=== PATIENT | male | born 1955 | race Caucasian/White ===

== ENCOUNTER 2024-02-08 13:19 | Outpatient (CLI) | payer MEDICARE, SELFPAY ==
--- NOTE | 2024-02-08 13:24 | XRR_ITS ---
PROCEDURE INFORMATION: Exam: XR Cervical Spine Exam date and time: 02/08/2024 1:48 PM Age: 68 years old Clinical indication: Radicular pain (radiculopathy); Cervical region; Additional info: M54.12 - radiculopathy, cervical region TECHNIQUE: Imaging protocol: Radiologic exam of the cervical spine. Views: 2 or 3 views. COMPARISON: No relevant prior studies available. FINDINGS: Bones/joints: No fracture or other acute abnormality. 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 Alignment is normal. Mild anterolateral hypertrophic changes are seen at C4 and C5. Visualized disc spaces are unremarkable. The C7 disc space is obscured by the patient's shoulders on the lateral projection. The bones appear to be somewhat demineralized. Soft tissues: Unremarkable. XR/XR cervical spine 3V* [id number] IMPRESSION: Nonacute findings.
--- NOTE | 2024-02-08 13:24 | XRR_ITS ---
PROCEDURE INFORMATION: Exam: XR Right Knee Exam date and time: 02/08/2024 1:48 PM Age: 68 years old Clinical indication: Pain; Knee; Bilateral; Additional info: M25.561 - pain in right knee TECHNIQUE: Imaging protocol: Radiologic exam of the right knee. Views: 3 views. COMPARISON: No relevant prior studies available. FINDINGS: Bones/joints: No fracture or other acute abnormality. Joint spaces are normal. There is a small anterior superior patellar enthesophyte. Soft tissues: Normal. XR/XR knee RT 3V* [id number] IMPRESSION: No acute findings.
--- NOTE | 2024-02-08 13:24 | XRR_ITS ---
PROCEDURE INFORMATION: Exam: XR Left Knee Exam date and time: 02/08/2024 1:48 PM Age: 68 years old Clinical indication: Pain; Knee; Bilateral; Additional info: M25.562 - pain in left knee TECHNIQUE: Imaging protocol: Radiologic exam of the left knee. Views: 3 views. COMPARISON: No relevant prior studies available. FINDINGS: Bones/joints: Normal. Soft tissues: Multiple clips are seen in the soft tissues of the distal posterior medial thigh and proximal posterior medial calf. XR/XR knee LT 3V* [id number] IMPRESSION: No acute findings.
== END 2024-02-08 13:20 | disposition home or self-care (01) ==
LOC: RAD 13:21
PROVIDERS: PCP Family Medicine; Visit Provider Family Medicine
DX: M54.12 Radiculopathy, cervical region (principal); M25.561 Pain in right knee; M25.562 Pain in left knee
CPT/HCPCS: 72040; 73562

== ENCOUNTER 2024-02-28 08:15 | Outpatient (CLI) | payer MEDICARE, SELFPAY ==
--- NOTE | 2024-02-28 08:15 | US_ITS ---
WS: [id number] RIGHT UPPER QUADRANT ULTRASOUND HISTORY: K80.20 - Calculus of gallbladder without cholecystitis wi... COMPARISON: None available. Liver: 17.8 cm in length. Mildly enlarged liver. Poorly seen due to body habitus. Suspect diffuse hep atic steatosis. Portal Vein: Normal hepatopetal flow with monophasic waveform. Gallbladder: Poorly visualized. No wall thickening or adjacent fluid. CBD: 0.5 cm Pancreas: Not visualized. Right kidney: 10.1 cm in length. Normal size kidney. Poorly visualized. No obstruction. Aorta and IVC: Poorly visualized. No ascites. US/US abdomen complete* [id number] IMPRESSION: 1. Technically very difficult RIGHT upper quadrant evaluation. 2. No cholelithiasis or wall thickening identified. 3. Mild hepatic steatosis and hepatomegaly.
== END 2024-02-28 08:24 | disposition home or self-care (01) ==
PROVIDERS: PCP Family Medicine; Visit Provider Family Medicine
DX: K80.20 Calculus of gallbladder without cholecystitis without obstruction (principal); R10.11 Right upper quadrant pain
CPT/HCPCS: 76700

== ENCOUNTER → 2024-03-06 08:29 | Outpatient (BNVA) | payer MEDICARE, SELFPAY | PROVIDERS: PCP Family Medicine; Referring Provider Family Medicine; Visit Provider Student in an Organized Health Care Education/Training Program | DX: K82.9 Disease of gallbladder, unspecified (principal) | CPT/HCPCS: 99204 ==

== ENCOUNTER 2024-03-13 09:42 | Day surgery (SDC) | payer MEDICARE, SELFPAY ==
[2024-03-13 10:05] VITALS: BP 113/71; PULSE 71; RESP 18; TEMP 36.6; O2SAT 95; BMI 32.2
[2024-03-13] MEDS: sodium chloride 0.9% 1,000 ML 30 ML IV (10:29)
--- NOTE | 2024-03-13 10:39 | ANES.PREANE2 ---
Pre-Anesthetic Assessment Height/Weight: Height 1.7 m Weight 93.44 kg Temp Pulse Resp BP Pulse Ox O2 Del Method 97.8 F 71 18 113/71 95 Room Air 03/13/24 10:05 03/13/24 10:05 03/13/24 10:05 03/13/24 10:05 03/13/24 10:05 03/13/24 10:05 Preop Diagnosis: gallbladder issues Operation Date: 03/13/24 11:15 Proposed Procedures p EGD 03127,K82.9(Not Applicable) - Andrew Fuller MD Familial anesthetic complications: none Was Beta Solomon taken within 24 hours: Yes Was Clonidine taken within 24 hours: N/A Last intake: Intake Last Liquid Date 03/12/24 Last Liquid Time 22:30 Last Solid Date 03/12/24 Last Solid Time 19:30 Social Alcohol and No tobacco Exam alert, oriented x 3, clear to auscultation bilaterally and regular rate & rhythm Airway Submandibular: within normal limits Cervical ROM: within normal limits Mallampati: Class II Dentition: false and full Pulmonary Chronic Obstructive Pulmonary Disease, Exertional Dyspnea and Sleep Apnea CV/HEM Arrythmia, Coronary Artery Disease, Hypertension and Myocardial Infarction CABG 2 vessel 2009 stents x 2017 None reported Hepatic None reported GI Gastroesophageal Reflux Disease Metabolic Hyperlipidemia Musc/skel Lower Back Pain and Osteoarthritis/DJD Neuropsych Headache Anesthetic Plan ASA status: 3 Anesthesia: MAC Risk of > 500 ml blood loss (7ml/kg in children): No Medications/Allergies Home Medications Medication Instructions Recorded Confirmed Last Taken Type alirocumab 75 mg/mL subcutaneous 75 mg SUBCUT .MONTHLY 06/28/23 03/08/24 02/16/24 History pen injector (Praluent Pen) aspirin 81 mg tablet,delayed 81 mg PO DAILY 06/28/23 03/08/24 03/12/24 History release (Adult Low Dose Aspirin) atorvastatin 80 mg tablet 80 mg PO DAILY 06/28/23 03/08/24 03/12/24 History cholecalciferol (vitamin D3) 50 50 mcg PO DAILY 06/28/23 03/08/24 03/12/24 History mcg (2,000 unit) capsule loratadine 10 mg tablet (Allergy 10 mg PO DAILY 06/28/23 03/08/24 03/12/24 History Relief (loratadine)) metoprolol tartrate 100 mg tablet 100 mg PO BID 06/28/23 03/08/24 03/13/24 07:00 History montelukast 10 mg tablet 10 mg PO DAILY 06/28/23 03/08/24 03/12/24 History multivitamin 1 tab PO DAILY 06/28/23 03/08/24 03/12/24 History nitroglycerin 0.6 mg sublingual 0.6 mg sublingual Q5M PRN Pain 06/28/23 03/13/24 2 Years Ago History tablet ~03/13/22 olopatadine 0.2 % eye drops 1 drp ophthalmic (eye) DAILY 06/28/23 03/13/24 2 Months Ago History ~01/12/24 omega 2-sdp-owq-fish oil 300 1 cap PO BID 06/28/23 03/08/24 03/12/24 History mg-1,000 mg capsule (Fish Oil) omeprazole 20 mg capsule,delayed 20 mg PO DAILY 06/28/23 03/08/24 03/12/24 History release ranolazine 1,000 mg 1,000 mg PO BID 06/28/23 03/08/24 03/12/24 History tablet,extended release,12 hr tamsulosin 0.4 mg capsule 0.4 mg PO DAILY 06/28/23 03/08/24 03/12/24 History tramadol 50 mg tablet 50 mg PO BID PRN Pain 06/28/23 03/08/24 03/10/24 History clopidogrel 75 mg tablet 75 mg PO DAILY 30 days #30 tabs 11/01/23 03/08/24 03/07/24 Rx Allergies Allergy/AdvReac Type Severity Reaction Status Date / Time No Known Allergies Allergy Unverified 03/08/24 12:56 Current Medications Generic Name Dose Route Start Last Admin Trade Name Freq PRN Reason Stop Dose Admin Sodium Chloride 1,000 mls @ 30 mls/hr 03/13/24 10:00 03/13/24 10:29 Sodium Chloride 0.9% IV 03/14/24 09:59 30 mls/hr .Q24H YOGESH Administration PFSH Anesthesia Surgical History (Updated 03/06/24 @ 08:47 by SUBHASH Garcia) Hx of CABG Family History (Updated 03/06/24 @ 08:48 by SUBHASH Garcia) Mother Diabetes Thyroid disease Colon cancer Grandmother Diabetes Grandfather Stroke maternal Father Heart disease CHF Colon cancer Denies family history of Chronic kidney disease (CKD) Bleeding disorder Social History (Updated 03/06/24 @ 08:48 by SUBHASH Garcia) Smoking and tobacco/nicotine status: former use of tobacco/nicotine Alcohol intake: current Alcohol intake frequency: holidays/special occasions only Data Anesthesia Cardiac Studies: No Data to Display
--- NOTE | 2024-03-13 12:45 | W.PM.OPSUD ---
Surgery/Procedure H&P Update DATE OF PROCEDURE: March 13, 2024 DATE H&P PERFORMED: 03/06/24 H&P UPDATE INFORMATION: I have reviewed H&P completed within last 30 days, I have examined patient prior to procedure and No changes to prior documentation PREOP DIAGNOSIS: gallbladder issues PLANNED PROCEDURE: Operation Date: 03/13/24 11:15 Proposed Procedures p EGD 39729,K82.9(Not Applicable) - Andrew Fuller MD
[2024-03-13 12:57] VITALS: BP 114/77; PULSE 78; RESP 12; TEMP 36.1; O2SAT 97
[2024-03-13 13:07] VITALS: BP 119/80; PULSE 81; RESP 14; O2SAT 94
[2024-03-13 13:14] VITALS: BP 122/69; PULSE 64; RESP 16; O2SAT 95
--- NOTE | 2024-03-13 13:35 | ANE.PACU2 ---
Inpatient post-anesthesia follow up: Airway intact: Yes Vital signs: Temperature 97 F Pulse Rate 64 Respiratory Rate 16 Blood Pressure 122/69 Pulse Oximetry 95 Oxygen Delivery Me thod Room Air Oxygen Flow Rate Fraction of Inspir ed Oxygen Hydration adequate: Yes Nausea and vomiting: No Pain level: 1 Mental status: Baseline
== END 2024-03-13 13:35 | disposition home or self-care (01) ==
PROVIDERS: PCP Family Medicine; Visit Provider Student in an Organized Health Care Education/Training Program
PROC: 0DJ08ZZ Inspection of Upper Intestinal Tract, Via Natural or Artificial Opening Endoscopic (ICD-10-PCS; CPT 43235; principal; 2024-03-13 11:15)
DX: R10.13 Epigastric pain (principal); K29.70 Gastritis, unspecified, without bleeding; K31.7 Polyp of stomach and duodenum; J44.9 Chronic obstructive pulmonary disease, unspecified; G47.30 Sleep apnea, unspecified; I25.10 Atherosclerotic heart disease of native coronary artery without angina pectoris; I10 Essential (primary) hypertension; I25.2 Old myocardial infarction; Z95.1 Presence of aortocoronary bypass graft; Z95.5 Presence of coronary angioplasty implant and graft; Z79.82 Long term (current) use of aspirin
CPT/HCPCS: 43239; 88305; J2704; J7030

== ENCOUNTER → 2024-03-27 09:55 | Outpatient (BNVA) | payer MEDICARE, SELFPAY | PROVIDERS: PCP Family Medicine; Referring Provider Family Medicine; Visit Provider Physician Assistant | DX: M25.561 Pain in right knee (principal); M25.562 Pain in left knee; Z09 Encounter for follow-up examination after completed treatment for conditions other than malignant neoplasm; M17.0 Bilateral primary osteoarthritis of knee; Z46.89 Encounter for fitting and adjustment of other specified devices | CPT/HCPCS: 20610; 73560; 73565; 99203; 99213; J3301 ==

== ENCOUNTER 2024-03-27 11:31 | Outpatient (CLI) | payer MEDICARE, SELFPAY | END 2024-03-27 11:32 | disposition home or self-care (01) | LOC: SPT 11:38 | PROVIDERS: PCP Family Medicine; Visit Provider Physician Assistant | DX: Z46.89 Encounter for fitting and adjustment of other specified devices (principal); M17.0 Bilateral primary osteoarthritis of knee | CPT/HCPCS: L1851 ==

== ENCOUNTER → 2024-04-05 08:16 | Outpatient (BNVA) | payer MEDICARE, SELFPAY | PROVIDERS: PCP Family Medicine; Referring Provider Family Medicine; Visit Provider Specialist | DX: G56.03 Carpal tunnel syndrome, bilateral upper limbs; G56.21 Lesion of ulnar nerve, right upper limb | CPT/HCPCS: 95910 ==

== ENCOUNTER → 2024-07-17 12:36 | Outpatient (BNVA) | payer MEDICARE, SELFPAY | PROVIDERS: PCP Family Medicine; Visit Provider Student in an Organized Health Care Education/Training Program | DX: M17.0 Bilateral primary osteoarthritis of knee (principal); M23.306 Other meniscus derangements, unspecified meniscus, right knee; M23.307 Other meniscus derangements, unspecified meniscus, left knee | CPT/HCPCS: 99213 ==

== ENCOUNTER 2024-11-13 18:56 | Emergency (ER) | payer OTHER, MEDICARE, SELFPAY ==
--- OUTSIDE RECORDS SUMMARY | 2023-11-05 04:00 | XMS_ITS ---
Author Organization [facility] Address [address] [place] [place] [address] Care Team Providers Care Machine Former Name Role Phone Terrance Gusman MD Primary Care Provider Unavailabl miguelina Gusman, Jose Unavailable [phone] [place], [place] Unavailable Unavailable Migration, Provider Unavailable Unavailable REASON FOR VISIT EMR-Elroy Encounters Encounter Location Date Provider Diagnosis Migrated_Facility 0 0 11/05/2023 Provider Migration Plan Of Treatment Next Appt Details Provider Name:Jose Ochoa Gusman, 0 01/08/2025 01:30:00 PM, [address] [place], [address], Progress Notes * Rey CHANDLER RDOB: [birth year] (68 yo M)Acc No.[id number]:11/05/2023 Patient: Ronak JUAN LUISRIYARey :1955 A ge:67 Y S ex:Male Address:[address] [place] [address] 1990 , [place] [address] Subjective: * Chief Complaints: * E MR-Elroy * Medical History: * Surgical History: * Hospitalization/Major Diagno stic Procedure: * Medications: Objective: * Vitals: * Physical Examination: Assessment: Plan: * Treatment: * Procedure Codes: * * Date:
--- OUTSIDE RECORDS SUMMARY | 2023-11-06 04:00 | XMS_ITS ---
Author Organization [facility] Address [address] [place] [address] Care Team Providers Care General Agent Name Role Phone Terrance Gusman MD Primary Care Provider Jeff Gusman, [place] Unavailable [phone] [place], [place] Unavailable Unavailable Migration, Provider Unavailable Unavailable REASON FOR VISIT EMR-[facility]roy Medications Medication SIG (Take, Route, Frequency, Duration) Notes Start Date End Date Status Clopidogrel Bisulfate 75 MG Oral 08/12/2021 Active Omeprazole Magnesium 20 MG Oral 08/12/2021 Active Metoprolol Tartrate 25 MG Oral 08/12/2021 Active Tamsulosin HCl 0.4 MG Oral 08/19/2021 022 Active Sulfamethoxazole-Trim ethoprim 800-160 MG Oral 08/19/2021 08/20/2021 Active Clonidine Hydrochloride 0.1 MG Oral Tablet *[facility]* 08/12/2021 09/05/2021 Active montelukast 10 MG Oral Tablet ORAL *[facility]* 08/12/2021 Active 12 HR ranolazine 500 MG Extended Release Oral Tablet ORAL *Reorder from [facility] for eRx and Interaction Alerts* 08/12/2021 Active atorvastatin 80 MG Oral Tablet ORAL *Reorder from [facility] for eRx and Interaction Alerts* 08/12/2021 Active Aspirin 81 81 MG Oral 08/12/2021 Ac tive traMADol HCl 50 MG Oral 08/12/2021 08/24/2021 Active Encounters Encounter Location Date Provider Diagnosis Migrated_Facility 0 0 11/06/2023 Provider Migration Plan Of Treatment Next Appt Details Provider Name:Jose Gusman, 0 01/08/2025 01:30:00 PM, [address] [place] [address], [place], [address], Progress Notes * Rey CROWDER RDOB: [birth year] (68 yo M)Acc No.[id number]:11/06/2023 Patient: Rey PEARSON :1955 A ge:67 Y S ex:Male Address:[address] [place] [id number] Subjective: * Chief Complaints: * E MR-Elroy * Medical History: * Surgical History: * Hospitalization/Major Diagno stic Procedure: * Family History: M other: PRN - Mother: :: Diabetes,,known absent , :: Hypertension,,known absent . S iblings: SIB - Brother: :: Cancer,,known absent . * Social History: M igrated Social History: M igrated Social History: History of tobacco use : , Smoking Status : Former tobacco user , Smoking Status : Never used tobacco , Alcohol intake :. * Medications: T akingClopidogrel Bisulfate 75 MG Tablet Oral Metoprolol Tartrate 25 MG Tablet Oral Omeprazole Magnesium 20 MG Tablet Delayed Release Oral Sulfamethoxazole- Trimethoprim 800-160 MG Tablet Oral , stop date 08/20/2021Tamsulosin HCl 0.4 MG Capsule Oral , stop date 12/17/2021traMADol HCl 50 MG Tablet Oral , stop date 08/24/2021spirin 81 81 MG Tablet Chewable Oral atorvastatin 80 MG Oral Tablet ORAL , Notes to Pharmacist: *[facility]*montelukast 10 MG Oral Tablet ORAL , Notes to Pharmacist: *[facility]*Clonidine Hydrochloride 0.1 MG Oral Tablet , stop date 09/05/2021, Notes to Pharmacist: *[facility]*12 HR ranolazine 500 MG Extended Release Oral Tablet ORAL , Notes to Pharmacist: *Reorder from [facility] for eRx and Interaction Alerts*Taking Clopidogrel Bisulfate 75 MG Tablet Oral Taking Metoprolol Tartrate 25 MG Tablet Oral Taking Omeprazole Magnesium 20 MG Tablet Delayed Release Oral Taking Sulfamethoxazole-Trimethoprim 800-160 MG Tablet Oral , stop date 08/20/2021Taking Tamsulosin HCl 0.4 MG Capsule Oral , stop date 12/17/2021Taking traMADol HCl 50 MG Tablet Oral , stop date 08/24/2021Taking Aspirin 81 81 MG Tablet Chewable Oral Taking atorvastatin 80 MG Oral Tablet ORAL , Notes to Pharmacist: *Reorder from [facility] for eRx and Interaction Alerts*Taking montelukast 10 MG Oral Tablet ORAL , Notes to Pharmacist: *Reorder from [facility] for eRx and Interaction Alerts*Taking Clonidine Hydrochloride 0.1 MG Oral Tablet , stop date 09/05/2021, Notes to Pharmacist: *Reorder from [facility] for eRx and Interaction Alerts*Taking 12 HR ranolazine 500 MG Extended Release Oral Tablet ORAL , Notes to Pharmacist: *Reorder from [facility] for eRx and Interaction Alerts* Objective: * Vitals: * Physical Examination: Assessment: Plan: * Treatment: * Procedure Codes: * * Date:
--- OUTSIDE RECORDS SUMMARY | 2023-11-30 08:40 | XMS_ITS | Encounter Summary ---
Author Name [facility] [place] [facility] [place] [facility] [place] Address [address] [place] [address] Care Team Providers Care Structural Architect Name Role Phone RAJAN PRUETT Primary Care Provider UnavailAARON Watt Primary Care Provider Unavailab MAXIME Rivas Primary Care Provider Unavaila MELONY Sewell Primary Care Provider Unavailabl ANN Cee Primary Care Provider Unavailsusanne BEEBE, ESTRELLA Unavailable Unavailable JACINTA SPRAGUE Unavailable Unavailable ROD BERNABE Unavailable Unavailable DAVIS LIN Unavailable Unavailable SUNITA BUCKNER Unavailable Unavailable LESLI PAZ Unavailable Unavailable Insurance Providers: All historical and current Section Date Range: From patient's date of to the date document was created. This section includes the names of all active insurance providers for the patient. Insurance Provider Type of Coverage Plan Name Start of Policy Coverage End of Policy Coverage Group Number Member ID Insurance Provider's Telephone Number Policy Summers's Name Patient's Relationship to Policy Summers [facility] (WNR) MEDICARE ADVANTAGE [facility] (WNR) May 16, 2023 [id number] [phone] ERICKA CHANDLER [facility]) MEDICARE ADVANTAGE [facility] (WNR) May 16, 2022 [id number] ERICKA CHANDLER PATIENT CARE IMPROVE PLUS [facility] (WNR) MEDICARE ADVANTAGE [facility] (WNR) May 16, 2015 [id number] [facility]) MEDICARE ADVANTAGE [facility] (WNR) Jun 16, 2019 [id number] ERICKA CHANDLER [facility] (WNR) MEDICARE [facility] (WNR) Jun 16, 2019 [id number] ERICKA CHANDLER PATIENT MEDICARE PART D (WNR) MEDICARE (M) PART D September 13, 2018 PART D [id number] ERICKA CHANDLER PATIENT MEDICARE PART D (WNR) MEDICARE (M) PART D September 13, 2018 PART D [id number] ERICKA CHANDLER PATIENT MEDICARE PART D (WNR) MEDICARE (M) PART D May 16, 2015 PART D [id number] ERICKA CHANDLER MEDICARE PART D (WNR) MEDICARE (M) PART D May 16, 2015 PART D [id number] ERICKA CHANDLER MEDICARE PART D (WNR) MEDICARE (M) PART D May 16, 2015 PART D [id number] ERICKA CHANDLER [facility] (WNR) MEDICARE ADVANTAGE [facility] (WNR) Feb 13, 2021 [id number] ERICKA CHANDLER [facility] (WNR) MEDICARE [facility] (WNR) Feb 13, 2021 [id number] [phone] ERICKA CHANDLER PATIENT Selected Encounter This section includes the information on record at CT for the Encounter. Date/Time Encounter Type Encounter Description Reason Provider Source Nov 30, 2023 01:40 PM CHIROPRACT MANJ 3-4 [employer] ICD-10-CM M99.01 Segmental and somatic dysfunction of cervical region ZO[place] GORE Encounter Template Text not used by CT Assessments - Encounter Diagnoses This section includes the primary and secondary diagnoses documented for the Encounter. Date/Time Primary/Secondary Diagnosis Diagnosis Name Provider Source Nov 30, 2023 01:59 PM PRIMARY Segmental and somatic dysfunction of cervical region ZOË GORE [facility] Nov 30, 2023 01:59 PM SECONDARY Cervicalgia [place] [facility] Nov 30, 2023 01:59 PM SECONDARY Other intervertebral disc degeneration, lumbosacral region [place] [facility] Nov 30, 2023 01:59 PM SECONDARY Pain in thoracic spine [place] [facility] Nov 30, 2023 01:59 PM SECONDARY Segmental and somatic dysfunction of lumbar region [place] [facility] Nov 30, 2023 01:59 PM SECONDARY Segmental and somatic dysfunction of pelvic region [place] [facility] Nov 30, 2023 01:59 PM SECONDARY Segmental and somatic dysfunction of thoracic region [place] [facility] Plan of Treatment: Future Appointments (+ 6 months) and Future Tests (+/- 45 days) The Plan of Treatment section includes future care activities for the [facility] This section includes future appointments and future orders which are active, pending or scheduled. Future Appointments This section includes appointments that were scheduled to occur 6 months from the date of the Encounter, up to a maximum of 20 appointments. The data comes from all CT treatment facilities. Appointment Date/Time Appointment Type Appointme nt Facility Name Dec 14, 2023 08:00 AM AMBULATORY - MEDICINE [facility] Dec 14, 2023 08:40 AM AMBULATORY - MEDICINE [facility] Dec 16, 2023 12:00 PM AMBULATORY - MEDICINE [facility] Dec 26, 2023 11:30 AM AMBULATORY - MEDICINE [facility] 2023 02:40 PM AMBULATORY - MEDICINE [facility] Dec 28, 2023 10:30 AM [place]IC[place] [facility] Jan 03, 2024 09:00 AM AM[place]UL[facility]ORY - [place]ICINE [place] [facility] Jan 26, 2024 11:20 AM AMBULATORY - MEDICINE [facility] Jan 27, 2024 10:00 AM AMBULATORY - NONE [place] [facility] Mar 28, 2024 10:30 AM AM[facility]ULATORY - MEDICINE [place] [facility] Apr 18, 2024 08:15 AM [facility]ORY - MEDICINE [place] [facility] Apr 25, 2024 09:00 AM AMBULATORY - MEDICINE [facility] May 02, 2024 12:00 PM [facility] [facility] May 02, 2024 12:45 PM [facility] May 02, 2024 12:46 PM [facility] - MED[facility]INE [facility] Lab Results: +/- 30 days of the encounter This section includes the Chemistry and Hematology Lab Results on record with CT for the patient. Radiology Reports and Pathology Reports are provided separately, in subsequent sections. Lab Results This section contains the Chemistry/Hematology Results that were resulted 30 days before or 30 daysafter the date of the Encounter. Date/Time Source Result Type Result - Unit Interpretation Reference Range Specimen Type Comment Dec 16, 2023 08:05 AM [facility] CHOLESTEROL PANEL (PB) PLASMA Specimen Type: PLASMA No comment entered. Ordering Provider: TY PAULSON Report Released Date/Time: Nov 22, 2023 07:26 AM Reporting Lab: [place] [facility] [address] [place] [address] Performing Lab: [place] [facility] [address] [place] [address] CHOLESTEROL 80 mg/dL 0-200 TRIGLYCERIDE 153 mg/dL H 0-150 CALCULATED LDL 8.4 mg/dL HDL(New) 41.0 mg/dL H >40 HDL % OF TOTAL CHOLESTEROL (PB) 51.3 >25 Dec 16, 2023 08:05 AM [facility] DIRECT LDL (MA-PB) PLASMA Specimen Type: PLASM A No comment entered. Ordering Provider: TY PAULSON Report Released Date/Time: Nov 22, 2023 07:26 AM Reporting Lab: [place] [facility] [address] [place] [address] Performing Lab: [place] [facility] [address] [place] [address] DIRECT LDL 17.4 mg/dL 0-99.9 Dec 16, 2023 08:05 AM [facility] VITAMIN D, 25-HYDROXY SERUM Specimen Type: SE RUM No comment entered. Ordering Provider: TY PAULSON Report Released Date/Time: Nov 22, 2023 07:26 AM Reporting Lab: [place] [facility] [address] [place] [address] Performing Lab: [place] [facility] [address] [place] [address] VITAMIN D, 25-HYDROXY 32.6 ng/mL 30-96 Dec 16, 2023 08:05 AM [facility] FOLATE (PB) SERUM Specimen Typ e: SERUM No comment entered. Ordering Provider: TY PAULSON Report Released Date/Time: Nov 22, 2023 07:26 AM Reporting Lab: [place] [facility] [address] [place] [address] Performing Lab: [place] [facility] [address] [place] [address] FOLATE (PB) 16.5 ng/mL 7-20 Dec 16, 2023 08:05 AM [facility] B12 SERUM Specimen Type: SERUM No comment entered. Ordering Provider: TY PAULSON Report Released Date/Time: Nov 22, 2023 07:26 AM Reporting Lab: [place] [facility] [address] [place] [address] Performing Lab: [place] [facility] [address] [place] [address] B12 1053 pg/mL H 213-816 Dec 16, 2023 08:05 AM [facility] COMPREHENSIVE METABOLIC PANEL PLASMA Specimen Type: PLASMA No comment entered. Ordering Provider: TY PAULSON Report Released Date/Time: Nov 22, 2023 07:26 AM Reporting Lab: [place] [facility] [address] [place] [address] Performing Lab: [place] [facility] [address] [place] [address] CREATININE 1.20 mg/dL 0.7-1.3 UREA NITROGEN 21 mg/dL 9-25 GLUCOSE 125 mg/dL H 72-99 SODIUM 140 meq/L 136-145 POTASSIUM 3.8 meq/L 3.5-5 CHLORIDE 106 meq/L 98-107 CARBON DIOXIDE 24 meq/L 22-31 CALCIUM 8.9 mg/dL 8.4-10.4 PROTEIN 6.5 g/dL 6-8.6 ALBUMIN 4.2 g/dL 3.4-5 TOTAL BILIRUBIN 0.5 mg/dL 0.2-1.2 ALKALINE PHOSPHATASE 52 U/L 40-150 AST/SGOT 20 U/L 5-34 ALT/SGPT 23 U/L 8-40 EGFR (CKD-EPI 2020) 66 Dec 16, 2023 08:05 AM [facility] HGA1C BLOOD Specimen Type: BLOOD No comment entered. Ordering Provider: TY PAULSON Report Released Date/Time: Nov 22, 2023 07:26 AM Reporting Lab: [place] [facility] [address] [place] [address] Performing Lab: [place] [facility] [address] [place] [address] HGA1C 5.4 4.0-6.0 Vital Signs: All taken on the encounter date This section contains inpatient and outpatient Vital Signs collected on the date of the Encounter. Date/Time Temperature Pulse Blood Pressure Respiratory Rate SP02 Pain Height Weight Body Mass Index Source Nov 30, 2023 01:40 PM 98.9 73 132/78 [facility] Social History: Smoking Status (Most current) and Tobacco Use (All prior to encounter date) This section includes the most current, and the historical, smoking and tobacco- related health factors from the CT facility where the Encounter took place. Current Smoking Status This section includes the most current smoking, or tobacco-related health factor, from the CT facility where the Encounter took place. Date/Time Current Smoking Status Comment Facil ity May 03, 2023 01:16 PM CT-TOBACCO FORMER USER [facility] Tobacco Use History This section includes a history of the smoking, or tobacco-related health factors, that were collected on or before the date of the Encounter. The data comes from the CT facility where the Encounter took place. Date/Time Smoking Status/Tobacco Use Comment F acility May 03, 2023 01:[address]-TOBACCO QUIT 15 YRS OR MORE [facility] Advance Directives: All historical and current Section Date Range: From patient's date of to the date document was created. This section includes ALL of a patient's completed or amended CT Advance and Rescinded Directives. The entries below indicate that a directive exists for the patient, but an actual copy is not included with this document. The data comes from all CT facilities. Date Advance Directives Provider Source September 26, 2014 ADVANCE DIRECTIVE DISCUSSION GRACIELA YUSUF RA [facility] Apr 24, 2014 ADVANCE DIRECTIVE DISCUSSION GRACIELA YUSUF RA [facility] Jan 01, 2014 ADVANCE DIRECTIVE DISCUSSION DAVID RODRIGUEZ [facility] September 28, 2013 ADVANCE DIRECTIVE DISCUSSION LENNY MACHUCA [facility] Aug 23, 2013 ADVANCE DIRECTIVE DISCUSSION WILLIAM ENG Mare [facility] Encounter Notes: All associated encounter notes This section contains the clinical notes associated to the Encounter. Date/Time Encounter Note(s) Provider Source Nov 30, 2023 01:43 PM CHIROPRACTIC NOTE: LOCAL TITLE: CHIROPRACTIC FOLLOW UP NOTE PB STANDARD TITLE: CHIROPRACTIC NOTE DATE OF NOTE: NOV 30, 2023@13:43 ENTRY DATE: NOV 30, 2023@13:43:41 AUTHOR: ZOË GORE COSIGNER: URGENCY: STATUS: COMPLETED CHIROPRACTIC FOLLOW-UP VISIT Patient's language preference for health information: Georgian Other Communication Methods Needed: SUBJECTIVE: The is a 67 year old MALE being seen in the Chiropractic clinic for follow-up visit. The [place] states he is doing fairly well, with mild achiness in his neck and back. Today, the rates his pain level as a 3/10. PAST MEDICAL HISTORY: see problem list SOCIO-ECONOMIC HISTORY: Tobacco: No Prior Tobacco Use Status Available Alcohol: ____ ALLERGIES/ADVERSE REACTIONS: Patient has answered NKA OBJECTIVE: CERVICAL SPINE: MOVEMENT/POSTURE: Upon inspection, observation is unremarkable. PALPATION: Tenderness was present at cervical segments C1 and C2. SEGMENTAL DYFUNCTION: Joint dysfunctions present upon evaluation C spine: C1 and C2. RANGE OF MOTION: AROM of the cervical spine was restricted in all planes of motion. The experience pain with the restricted AROM. LUMBAR/THORACIC SPINE: MOVEMENT/POSTURE: The [place] ambulates without issue. SEGMENTAL DYSFUNCTION: Joint dysfunction was noted in the T spine: T4 and T8, L spine: L5, and at the left SI joint. PALPATION: The following vertebral spinous processes were tender to palpation: T4, T8, L5, and the left PSIS. RANGE OF MOTION: AROM of the lumbar spine was slightly restricted and painful in all planes of motion. REVIEW OF DIAGNOSTIC IMAGING: SPINE LUMBOSACRAL 2 OR 3 VIEWS Reason for Study: chronic low back pain Clinical History: wants to see chiro here [facility] Date Reported: MAY 03, 2023 Report: Lumbar spine 3 views. There are degenerative changes. No fracture or dislocation. No bony destruction. Narrowing L5-S1 disc space. Plaque abdominal aorta and iliac arteries. Impression: 1. Mild degenerative arthritis 2. 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 PLAN: This is the third follow up treatment for the of a planned six treatments. Due to persistent back pain, we will treat The [place] once every two weeks for six treatments. Prognosis: Fair Today's treatment of the consisted of chiropractic spinal adjustment of the cervical spine (supine), thoracic spine (prone), lumbar spine (side posture), and the pelvis (side posture/prone) using Forbes technique and diversified technique. The procedure was well tolerated by the . GOALS: The goals of treatment include: 1) The reduction of symptomatology. 2) Instructing the in home exercises to improve cervical flexibility and strength, core strength, and lower extremity and core flexibility. 3) Helping the to understand the benefits of long-term continuation of the home exercise program and to commit to a usp exercise plan. /stiven/ [facility] Signed: 11/30/2023 13:59 [place]
--- OUTSIDE RECORDS SUMMARY | 2023-12-27 09:40 | XMS_ITS | Encounter Summary ---
Author Name [facility] [facility] [place] Organization [facility] [place] Address [address] [place] [address] Care Team Providers Care Section Hand Helper Name Role Phone RAJAN PRUETT Primary Care [...] Summers's Name Patient's Relationship to Policy Summers [facility] (WNR) MEDICARE ADVANTAGE [facility] (WNR) May 16, 2023 [id number] ERICKA CHANDLER PATIENT [facility] (WNR) MEDICARE ADVANTAGE [facility] (WNR) May 16, 2022 [id number] ERICKA CHANDLER PATIENT CARE IMPROVE PLUS [facility] (WNR) MEDICARE ADVANTAGE [facility] (WNR) May 16, 2015 [id number] (WNR) Jun 16, 2019 [id number] ERICKA CHANDLER [facility] (WNR) MEDICARE [facility] (WNR) Jun 16, 2019 [id number] [phone] ERICKA CHANDLER PATIENT MEDICARE PART D (WNR) MEDICARE (M) PART D September 13, 2018 PART D [id number] ERICKA CHANDLER PATIENT MEDICARE PART D (WNR) MEDICARE (M) PART D September 13, 2018 PART D [id number] ERICKA CHANDLER PATIENT MEDICARE PART D (WNR) MEDICARE (M) PART D May 16, 2015 PART D [id number] ERICKA CHANDLER MEDICARE PART D (WNR) MEDICARE (M) PART D May 16, 2015 PART D [id number] ERICKA CHANDLER MEDICARE PART D (WNR) MEDICARE (M) PART D May 16, 2015 PART D [id number] ERICKA CHANDLER [facility] (WNR) MEDICARE ADVANTAGE [facility] (WNR) Feb 13, 2021 [id number] ERICKA CHANDLER [facility] (WNR) MEDICARE [facility] (WNR) Feb 13, 2021 [id number] [phone] ERICKA CHANDLER PATIENT Selected Encounter This section includes the information on record at [place] for the Encounter. 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 Date/Time Primary/Secondary Diagnosis Diagnosis Name Provider Source 2023 02:47 PM PRIMARY Segmental and somatic dysfunction of cervical region SOFÍA,ZOËSHERIDAN RIVAS [place] [facility] 2023 02:47 PM SECONDARY Cervicalgia [place] [facility] 2023 02:47 PM SECONDARY Other intervertebral disc degeneration, lumbosacral region [facility] [place] [facility] 2023 02:47 PM SECONDARY Pain in thoracic spine [facility] [facility] 2023 02:47 PM SECONDARY Segmental and somatic dysfunction of lumbar region [facility] [place] [facility] 2023 02:47 PM SECONDARY Segmental and somatic dysfunction of pelvic region [facility] [facility] 2023 02:47 PM SECONDARY Segmental and somatic dysfunction of thoracic region [place] [facility] Plan of Treatment: Future Appointments (+ 6 months) and Future Tests (+/- 45 days) The Plan of Treatment section includes future care activities for the patient from all [place] [facility]. This section includes future appointments and future orders which are active, pending or scheduled. Future Appointments This section includes appointments that were scheduled to occur 6 months from the date of the Encounter, up to a maximum of 20 appointments. The data comes from all [place] treatment facilities. Appointment Date/Time Appointment Type Appointme nt Facility Name Dec 28, 2023 10:30 AM AMBULATORY - [place]IC[place] [facility] Jan 03, 2024 09:00 AM [facility]ORY - [facility]IC[place] [facility] Jan 26, 2024 11:20 AM AMBULATORY - MEDICINE [facility] Jan 27, 2024 10:00 AM AMBULATORY - NONE [place] [facility] Mar 28, 2024 10:30 AM AMBULATORY - MEDICINE [place] [facility] Apr 18, 2024 08:15 AM AMBULATORY - MEDICINE [place] [facility] Apr 25, 2024 09:00 AM AMBULATORY - MEDICINE [facility] May 02, 2024 12:00 PM AMBULATORY - MEDICINE [facility] May 02, 2024 12:45 PM AMBULATORY - MEDICINE [facility] May 02, 2024 12:46 PM AMBULATORY - MEDICINE [facility] Lab Results: +/- 30 days of the encounter This section includes the Chemistry and Hematology Lab Results on record with [place] for the patient. Radiology Reports and Pathology Reports are provided separately, in subsequent sections. Lab Results This section contains the Chemistry/Hematology Results that were resulted 30 days before or 30 daysafter the date of the Encounter. Date/Time Source Result Type Result - Unit Interpretation Reference Range Specimen Type Comment Dec 16, 2023 08:05 AM [facility] CHOLESTEROL PANEL (PB) PLASMA Specimen Type: PLASMA No comment entered. Ordering Provider: TY PAULSON Report Released Date/Time: Nov 22, 2023 07:26 AM Reporting Lab: [place] [facility] [address] [place] [address] Performing Lab: [place] [facility] [address] [place] [address] CHOLESTEROL 80 mg/dL 0-200 TRIGLYCERIDE 153 mg/dL H 0-150 CALCULATED LDL 8.4 mg/dL HDL(New) 41.0 mg/dL H >40 HDL % OF TOTAL CHOLESTEROL (PB) 51.3 >25 Dec 16, 2023 08:05 AM [facility] DIRECT LDL (MA-PB) PLASMA Specimen Type: PLASM A No comment entered. Ordering Provider: TY PAULSON Report Released Date/Time: Nov 22, 2023 07:26 AM Reporting Lab: [place] [facility] [address] [place] [address] Performing Lab: [place] [facility] [address] [place] [address] DIRECT LDL 17.4 mg/dL 0-99.9 Dec 16, 2023 08:05 AM [facility] VITAMIN D, 25-HYDROXY SERUM Specimen Type: SE RUM No comment entered. Ordering Provider: TY PAULSON Report Released Date/Time: Nov 22, 2023 07:26 AM Reporting Lab: [place] [facility] [address] [place] [address] Performing Lab: [place] [facility] [address] [place] [address] VITAMIN D, 25-HYDROXY 32.6 ng/mL 30-96 Dec 16, 2023 08:05 AM [facility] FOLATE (PB) SERUM Specimen Typ e: SERUM No comment entered. Ordering Provider: TY PAULSON Report Released Date/Time: Nov 22, 2023 07:26 AM Reporting Lab: [place] [facility] [address] [place] [address] Performing Lab: [place] [facility] [address] [place] [address] FOLATE (PB) 16.5 ng/mL 7-20 Dec 16, 2023 08:05 AM [facility] HGA1C BLOOD Specimen Type: BLOOD No comment entered. Ordering Provider: TY PAULSON Report Released Date/Time: Nov 22, 2023 07:26 AM Reporting Lab: [place] [facility] [address] [place] [address] Performing Lab: [place] [facility] [address] [place] [address] HGA1C 5.4 4.0-6.0 Dec 16, 2023 08:05 AM [facility] B12 SERUM Specimen Type: SERUM No comment entered. Ordering Provider: TY PAULSON Report Released Date/Time: Nov 22, 2023 07:26 AM Reporting Lab: [place] [facility] [address] [place] [address] Performing Lab: [place] [facility] [address] [place] [address] B12 1053 pg/mL H 213-816 Dec 16, 2023 08:05 AM [facility] COMPREHENSIVE METABOLIC PANEL PLASMA Specimen Type: PLASMA No comment entered. Ordering Provider: TY PAULSON Report Released Date/Time: Nov 22, 2023 07:26 AM Reporting Lab: [place] [facility] [address] [place] [address] Performing Lab: [place] [facility] [address] [place] [address] CREATININE 1.20 mg/dL 0.7-1.3 UREA NITROGEN 21 [...] 23 U/L 8-40 EGFR (CKD-EPI 2020) 66 Vital Signs: All taken on the encounter date This section contains inpatient and outpatient Vital Signs collected on the date of the Encounter. Date/Time Temperature Pulse Blood Pressure Respiratory Rate SP02 Pain Height Weight Body Mass Index Source 2023 02:40 PM 98 76 116/64 [facility] Social History: Smoking Status (Most current) and Tobacco Use (All prior to encounter date) This section includes the most current, and the historical, smoking and tobacco- related health factors from the [place] facility where the Encounter took place. Current Smoking Status This section includes the most current smoking, or tobacco-related health factor, from the [place] facility where the Encounter took place. Date/Time Current Smoking Status Comment Facil ity May 03, 2023 01:16 PM VA-TOBACCO FORMER USER [facility] Tobacco Use History This section includes a history of the smoking, or tobacco-related health factors, that were collected on or before the date of the Encounter. The data comes from the [place] facility where the Encounter took place. Date/Time Smoking Status/Tobacco Use Comment F acility May 03, 2023 01:16 PM PR-TOBACCO QUIT 15 YRS OR MORE [facility] Advance Directives: All historical and current Section Date Range: From patient's date of to the date document was created. This section includes ALL of a patient's completed or amended [place] Advance and Rescinded Directives. The entries below indicate that a directive exists for the patient, but an actual copy is not included with this document. The data comes from all [place] facilities. Date Advance Directives Provider Source September 26, 2014 ADVANCE DIRECTIVE DISCUSSION GRACIELA YUSUF RA [facility] Apr 24, 2014 ADVANCE DIRECTIVE DISCUSSION GRACIELA YUSUF RA [facility] Jan 01, 2014 ADVANCE DIRECTIVE DISCUSSION DAVID RODRIGUEZ [facility] September 28, 2013 ADVANCE DIRECTIVE DISCUSSION LENNY MACHUCA [facility] Aug 23, 2013 ADVANCE DIRECTIVE DISCUSSION WILLIAM ENG [facility] Encounter Notes: All associated encounter notes This section contains the clinical notes associated to the Encounter. Date/Time Encounter Note(s) Provider Source 2023 02:35 PM CHIROPRACTIC NOTE: LOCAL TITLE: CHIROPRACTIC FOLLOW UP NOTE PB STANDARD TITLE: CHIROPRACTIC NOTE DATE OF NOTE: 2023@14:35 ENTRY DATE: 2023@14:35:44 AUTHOR: ZOË GORE COSIGNER: URGENCY: STATUS: COMPLETED CHIROPRACTIC FOLLOW-UP VISIT Patient's language preference for health information: Angolan Other Communication Methods Needed: SUBJECTIVE: The is a 67 year old MALE being seen in the Chiropractic clinic for follow-up visit. The [place] reports continued pain in the left SI and left C/T region for the past 2-3 weeks. He does not recall any aggravating event since his last adjustment. Today, the rates his pain level as a 3-6/10. PAST MEDICAL HISTORY: see problem list SOCIO-ECONOMIC [...] restricted in all planes of motion. The [place] experience pain with the restricted AROM. LUMBAR/THORACIC SPINE: MOVEMENT/POSTURE: The ambulates without issue. SEGMENTAL DYSFUNCTION: Joint dysfunction [...] Clinical History: wants to see chiro here at [place] Date Reported: MAY 03, 2023 Report: Lumbar [...] associated myofascial pain. PLAN: This is the fourth follow up treatment for the of a planned six treatments. Due to persistent back pain, we will treat The [place] once every two weeks for six treatments. [...] exercise program and to commit to a roasterman exercise plan. /stiven/ LEXUS [facility] Signed: 2023 14:46 ZOË GORE
--- OUTSIDE RECORDS SUMMARY | 2024-01-26 06:20 | XMS_ITS | Encounter Summary ---
Author Name [facility] [place] Address [address] [place] [address] Care Team Providers Care Airways Control Specialist Name Role Phone AARON HOOKS Primary Care Provider Unavailab RAJAN Camargo Primary Care Provider Unavailabl MAXIME De La Cruz Primary Care Provider Unavaila MELONY Sewell Primary Care Provider Unavailabl e ANN WEST Primary Care Provider Unavailabl e CONCEPCIÓN, ESTRELLA Unavailable Unavailable JACINTA SPRAGUE Unavailable Unavailable [...] Summers's Name Patient's Relationship to Policy Summers [facility] (WNR) MEDICARE ADVANTAGE [facility] (WNR) May 16, 2023 [id number] ERICKA CHANDLER [facility] ADVANTAGE [facility] (WNR) May 16, 2022 [id number] 73 ERICKA CHANDLER PATIENT CARE IMPROVE PLUS [facility] (WNR) MEDICARE ADVANTAGE [facility] (WNR) May 16, 2015 [id number] AD[facility] (WNR) Jun 16, 2019 [id number] ERICKA CHANDLER [facility] (WNR) MEDICARE ADVANTAGE [facility] (WNR) Jun 16, 2019 [id number] [id number] ERICKA CHANDLER PATIENT MEDICARE PART D (WNR) MEDICARE (M) PART D September 13, 2018 PART D [id number] ERICKA CHANDLER PATIENT MEDICARE PART D (WNR) MEDICARE (M) PART D September 13, 2018 PART D [id number] ERICKA CHANDLER PATIENT MEDICARE PART D (WNR) MEDICARE (M) PART D May 16, 2015 PART D [id number] ERICKA CHANDLER MEDICARE PART D (WNR) MEDICARE (M) PART D May 16, 2015 PART D [id number] ERICKA CHANDLER MEDICARE PART D (WNR) MEDICARE (M) PART D May 16, 2015 PART D [id number] [facility] (WNR) MEDICARE ADVANTAGE [facility] (WNR) Feb 13, 2021 [id number] [facility] (WNR) MEDICARE [facility] (WNR) Feb 13, 2021 [id number] ERICKA CHANDLER PATIENT Selected Encounter This section includes the information on record at [place] for the Encounter. 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 Date/Time Primary/Secondary Diagnosis Diagnosis Name Provider Source Jan 26, 2024 11:27 AM PRIMARY Segmental and somatic dysfunction of cervical region SOFÍA,ZOËSHERIDAN RIVAS [place] [facility] Jan 26, 2024 11:27 AM SECONDARY Cervicalgia [facility] [facility] Jan 26, 2024 11:27 AM SECONDARY Other intervertebral disc degeneration, lumbosacral region [facility] [place] [facility] Jan 26, 2024 11:27 AM SECONDARY Pain in thoracic spine [facility] Jan 26, 2024 11:27 AM SECONDARY Segmental and somatic dysfunction of lumbar region [facility] [facility] Jan 26, 2024 11:27 AM SECONDARY Segmental and somatic dysfunction of pelvic region [facility] [facility] Jan 26, 2024 11:27 AM SECONDARY Segmental and somatic dysfunction of thoracic region ZOË GORE [facility] Plan of Treatment: Future Appointments (+ 6 months) and Future Tests (+/- 45 days) The Plan of Treatment section includes future care activities for the patient from all [place] [facility]. This section includes future appointments and future orders which are active, pending or scheduled. Future Appointments This section includes appointments that were scheduled to occur 6 months from the date of the Encounter, up to a maximum of 20 appointments. The data comes from all [place] treatment [facility]. Appointment Date/Time Appointment Type Appointme nt Facility Name Jan 27, 2024 10:00 AM AM[facility]ULATORY - NONE [facility] Mar 28, 2024 10:30 AM [facility] Apr 18, 2024 08:15 AM AM[facility]ORY - [facility]IC[facility] Apr 25, 2024 09:00 AM AMBULATORY - MEDICINE [facility] May 02, 2024 12:00 PM AMBULATORY - MEDICINE [facility] May 02, 2024 12:45 PM AMBULATORY - MEDICINE [facility] May 02, 2024 12:46 PM AMBULATORY - MEDICINE [facility] Vital Signs: All taken on the encounter date This section contains inpatient and outpatient Vital Signs collected on the date of the Encounter. Date/Time Temperature Pulse Blood Pressure Respiratory Rate SP02 Pain Height Weight Body Mass Index Source Jan 26, 2024 11:20 AM 97.7 58 135/89 [facility] Social History: Smoking Status (Most current) and Tobacco Use (All prior to encounter date) This section includes the most current, and the historical, smoking and tobacco- related health factors from the [place] facility where the Encounter took place. Current Smoking Status This section includes the most current smoking, or tobacco-related health factor, from the [place] facility where the Encounter took place. Date/Time Current Smoking Status Comment Facil ity May 03, 2023 01:16 PM VA-TOBACCO FORMER USER [facility] Tobacco Use History This section includes a history of the smoking, or tobacco-related health factors, that were collected on or before the date of the Encounter. The data comes from the [place] facility where the Encounter took place. Date/Time Smoking Status/Tobacco Use Comment F acility May 03, 2023 01:16 PM [place]-TOBACCO QUIT 15 YRS OR MORE [facility] Advance Directives: All historical and current Section Date Range: From patient's date of to the date document was created. This section includes ALL of a patient's completed or amended [place] Advance and Rescinded Directives. The entries below indicate that a directive exists for the patient, but an actual copy is not included with this document. The data comes from all [place] facilities. Date Advance Directives Provider Source September 26, 2014 ADVANCE DIRECTIVE DISCUSSION GRACIELA YUSUF RA [facility] Apr 24, 2014 ADVANCE DIRECTIVE DISCUSSION GRACIELA YUSUF RA [facility] Jan 01, 2014 ADVANCE DIRECTIVE DISCUSSION DAVID RODRIGUEZ [facility] September 28, 2013 ADVANCE DIRECTIVE DISCUSSION LENNY MACHUCA [facility] Aug 23, 2013 ADVANCE DIRECTIVE DISCUSSION WILLIAM ENG [facility] Encounter Notes: All associated encounter notes This section contains the clinical notes associated to the Encounter. Date/Time Encounter Note(s) Provider Source Jan 26, 2024 11:17 AM CHIROPRACTIC NOTE: LOCAL TITLE: CHIROPRACTIC FOLLOW UP NOTE PB STANDARD TITLE: CHIROPRACTIC NOTE DATE OF NOTE: JAN 26, 2024@11:17 ENTRY DATE: JAN 26, 2024@11:17:41 AUTHOR: ZOË GORE COSIGNER: URGENCY: STATUS: COMPLETED CHIROPRACTIC FOLLOW-UP VISIT Patient's language preference for health information: Cape Verdean Other Communication Methods Needed: SUBJECTIVE: The [place] is a 68 year old MALE being seen in the Chiropractic clinic for follow-up visit. The states his left neck and left lower back is frequently painful, but is doing well today. He states he finds short term relief following his last adjustment. Today, the rates his [...] restricted in all planes of motion. The [place] experience pain with the restricted AROM. LUMBAR/THORACIC SPINE: MOVEMENT/POSTURE: The [place] ambulates without issue. SEGMENTAL DYSFUNCTION: Joint dysfunction [...] History: wants to see chiro here at [place] Date Reported: MAY 03, 2023 Report: Lumbar [...] associated myofascial pain. PLAN: This is the fifth follow up treatment for the of a planned six treatments. Due to persistent back pain, we will treat The [place] once every two weeks for six treatments. [...] exercise program and to commit to a long term care administrator exercise plan. /stiven/ LEXUS Shoemaker [facility] Signed: 01/26/2024 11:27 ZOË GORE [facility]
--- OUTSIDE RECORDS SUMMARY | 2024-05-02 07:45 | XMS_ITS | Encounter Summary ---
Author Name [facility] [facility] [place] [facility] [place] [facility] [place] Address [address] [place] [address] Care Team Providers Care Wool Sorter Name Role Phone AARON HOOKS Primary Care Provider Unavailab RAJAN Camargo Primary Care Provider Unavailabl MAXIME De La Cruz Primary Care Provider Unavaila RADHA Sewell Primary Care Provider Unavailabl e ANN [...] Summers's Name Patient's Relationship to Policy Summers [facility] (WNR) MEDICARE ADVANTAGE [facility] (WNR) May 16, 2023 [id number] ERICKA CHANDLER [facility] AD[facility]ANTAGE [facility] (WNR) May 16, 2022 [id number] [phone] ERICKA CHANDLER PATIENT CARE IMPROVE PLUS [facility] (WNR) MEDICARE ADVANTAGE [facility] (WNR) May 16, 2015 [id number] ERICKA CHANDLER [facility] (WNR) MEDICARE ADVANTAGE [facility] (WNR) Jun 16, 2019 [id number] ERICKA CHANDLER [facility] (WNR) MEDICARE [facility] (WNR) Jun 16, 2019 [id number] [id number] [id number] ERICKA CHANDLER PATIENT MEDICARE PART D (WNR) MEDICARE (M) PART D September 13, 2018 PART D [id number] ERICKA CHANDLER PATIENT MEDICARE PART D (WNR) MEDICARE (M) PART D September 13, 2018 PART D [id number] ERICKA CHANDLER PATIENT MEDICARE PART D (WNR) MEDICARE (M) PART D May 16, 2015 PART D [id number] ERICKA CHANDLER MEDICARE PART D (WNR) MEDICARE (M) PART D May 16, 2015 PART D [id number] ERICKA CHANDLER MEDICARE PART D (WNR) MEDICARE (M) PART D May 16, 2015 PART D [id number] ERICKA CHANDLER [facility] (WNR) MEDICARE ADVANTAGE [facility] (WNR) Feb 13, 2021 [id number] ERICKA CHANDLER [facility] (WNR) MEDICARE [facility] (WNR) Feb 13, 2021 [id number] ERICKA CHANDLER PATIENT Selected Encounter This section includes the information on record at [place] for the Encounter. Date/Time Encounter Type Encounter Description Reason Provider Source May 02, 2024 12:45 PM OFFICE O/P EST MOD 30 MIN PRIMARY CARE/MEDICINE ICD-10-CM Z00.01 Encounter for general adult medical exam w abnormal findings RADHA FIELDS Ruben Encounter Template Text not used by [place] Assessments - Encounter Diagnoses This section includes the primary and secondary diagnoses documented for the Encounter. Date/Time Primary/Secondary Diagnosis Diagnosis Name Provider Source May 03, 2024 03:48 PM PRIMARY Encounter for general adult medical exam w abnormal findings RADHA FIELDS [place] [facility] May 03, 2024 03:48 PM SECONDARY Athscl heart disease of [place] coronary artery w/o ang pctrs [place] FIELDS [facility] May 03, 2024 03:48 PM SECONDARY Benign prostatic hyperplasia without lower urinry tract symp [place]DS [facility] May 03, 2024 03:48 PM SECONDARY Chronic obstructive pulmonary disease, unspecified RAD[facility] FIELDS [facility] May 03, 2024 03:48 PM SECONDARY Essential (primary) hypertension [place] FIELDS [facility] May 03, 2024 03:48 PM SECONDARY Gastro-esophageal reflux disease without esophagitis [place] FIELDS [facility] May 03, 2024 03:48 PM SECONDARY Heart failure, unspecified RADHA FIELDS [facility] May 03, 2024 03:48 PM SECONDARY Impaired glucose tolerance (oral) RADHA FIELDS [facility] May 03, 2024 03:48 PM SECONDARY Mixed hyperlipidemia RADHA FIELDS [place] [facility] Plan of Treatment: Future Appointments (+ 6 months) and Future Tests (+/- 45 days) The Plan of Treatment section includes future care activities for the [facility] [place] [facility] This section includes future appointments and future orders which are active, pending or scheduled. Future Appointments This section includes appointments that were scheduled to occur 6 months from the date of the Encounter, up to a maximum of 20 appointments. The data comes from all [place] treatment facilities. Appointment Date/Time Appointment Type Appointme nt Facility Name September 25, 2024 10:00 AM AMBULATORY - MEDICINE [facility] September 25, 2024 10:15 AM AMBULATORY - MEDICINE [facility] October 02, 2024 08:40 AM AMBULATORY - MEDICINE [facility] October 04, 2024 10:00 AM AMBULATORY - MEDICINE [facility] Oct 16, 2024 08:30 AM AMBUL[facility]ORY - MEDICINE [facility] Oct 16, 2024 08:32 AM [facility]UL[facility]ORY - MEDICINE [facility] Oct 16, 2024 11:40 AM AMBULATORY - MEDICINE [facility] Lab Results: +/- 30 days of the encounter This section includes the Chemistry and Hematology Lab Results on record with [place] for the patient. Radiology Reports and Pathology Reports are provided separately, in subsequent sections. Lab Results This section contains the Chemistry/Hematology Results that were resulted 30 days before or 30 daysafter the date of the Encounter. Date/Time Source Result Type Result - Unit Interpretation Reference Range Specimen Type Comment Apr 25, 2024 09:40 AM [facility] DIRECT LDL (MA-PB) PLASMA Specimen Type: PLASMA No comment entered. Ordering Provider: TY PAULSON Report Released Date/Time: Dec 26, 2023 07:49 AM Reporting Lab: [place] [facility] [address] [place] [address] Performing Lab: [place] [facility] [address] [place] [address] DIRECT LDL 9.7 mg/dL 0-99.9 Apr 25, 2024 09:40 AM [facility] CHOLESTEROL PANEL (PB) PLASMA Specimen Type: P LASMA No comment entered. Ordering Provider: TY PAULSON Report Released Date/Time: Dec 26, 2023 07:49 AM Reporting Lab: [place] [facility] [address] [place] [address] Performing Lab: [place] [facility] [address] [place] [address] CHOLESTEROL 75 mg/dL 0-200 TRIGLYCERIDE 142 mg/dL 0-150 CALCULATED LDL -0.4 mg/dL HDL(New) 47.0 mg/dL H >40 HDL % OF TOTAL CHOLESTEROL (PB) 62.7 >25 Apr 25, 2024 09:40 AM [facility] FOLATE (PB) SERUM Specimen Typ e: SERUM No comment entered. Ordering Provider: TY PAULSON Report Released Date/Time: Dec 26, 2023 07:49 AM Reporting Lab: [place] [facility] [address] [place] [address] Performing Lab: [place] [facility] [address] [place] [address] FOLATE (PB) 16.6 ng/mL 7-20 Apr 25, 2024 09:40 AM [facility] VITAMIN D, 25-HYDROXY SERUM Specimen Type: SE RUM No comment entered. Ordering Provider: TY PAULSON Report Released Date/Time: Dec 26, 2023 07:49 AM Reporting Lab: [place] [facility] [address] [place] [address] Performing Lab: [place] [facility] [address] [place] [address] VITAMIN D, 25-HYDROXY 42.2 ng/mL 30-96 Apr 25, 2024 09:40 AM [facility] B12 SERUM Specimen Type: SERUM No comment entered. Ordering Provider: TY PAULSON Report Released Date/Time: Dec 26, 2023 07:49 AM Reporting Lab: [place] [facility] [address] [place] [address] Performing Lab: [place] [facility] [address] [place] [address] B12 572 pg/mL 213-816 Apr 25, 2024 09:40 AM [facility] COMPREHENSIVE METABOLIC PANEL PLASMA Specimen Type: PLASMA No comment entered. Ordering Provider: TY PAULSON Report Released Date/Time: Dec 26, 2023 07:49 AM Reporting Lab: [place] [facility] [address] [place] [address] Performing Lab: [place] [facility] [address] [place] [address] CREATININE 1.12 mg/dL 0.7-1.3 UREA NITROGEN 23 mg/dL 9-25 GLUCOSE 170 mg/dL H 72-99 SODIUM 140 meq/L 136-145 POTASSIUM 3.9 meq/L 3.5-5 CHLORIDE 105 meq/L 98-107 CARBON DIOXIDE 23 meq/L 22-31 CALCIUM 9.4 mg/dL 8.4-10.4 PROTEIN 6.7 g/dL 6-8.6 ALBUMIN 4.3 g/dL 3.4-5 TOTAL BILIRUBIN 0.7 mg/dL 0.2-1.2 ALKALINE PHOSPHATASE 69 U/L 40-150 AST/SGOT 17 U/L 5-34 ALT/SGPT 23 U/L 8-40 EGFR (CKD-EPI 2020) 71 Apr 25, 2024 09:40 AM [facility] HGA1C BLOOD Specimen Type: BLOOD No comment entered. Ordering Provider: TY PAULSON Report Released Date/Time: Dec 26, 2023 07:49 AM Reporting Lab: [facility] [facility] [address] [place] [address] Performing Lab: [facility] [facility] [address] [place] [address] HGA1C 6.4 H 4.0-6.0 Vital Signs: All taken on the encounter date This section contains inpatient and outpatient Vital Signs collected on the date of the Encounter. Date/Time Temperature Pulse Blood Pressure Respiratory Rate SP02 Pain Height Weight Body Mass Index Source May 02, 2024 01:06 PM 97.7 72 134/78 20 95 3 200.4 31 [facility] Social History: Smoking Status (Most current) and Tobacco Use (All prior to encounter date) This section includes the most current, and the historical, smoking and tobacco- related health factors from the [place] facility where the Encounter took place. Current Smoking Status This section includes the most current smoking, or tobacco-related health factor, from the [place] facility where the Encounter took place. Date/Time Current Smoking Status Comment Facil ity May 03, 2023 01:16 PM VA-TOBACCO FORMER USER [facility] Tobacco Use History This section includes a history of the smoking, or tobacco-related health factors, that were collected on or before the date of the Encounter. The data comes from the [place] facility where the Encounter took place. Date/Time Smoking Status/Tobacco Use Comment F acility May 03, 2023 01:16 PM [place]-TOBACCO QUIT 15 YRS OR MORE [facility] Advance Directives: All historical and current Section Date Range: From patient's date of to the date document was created. This section includes ALL of a patient's completed or amended [place] Advance and Rescinded Directives. The entries below indicate that a directive exists for the patient, but an actual copy is not included with this document. The data comes from all [place] facilities. Date Advance Directives Provider Source September 26, 2014 ADVANCE DIRECTIVE DISCUSSION GRACIELA YUSUF RA [facility] Apr 24, 2014 ADVANCE DIRECTIVE DISCUSSION GRACIELA YUSUF RA [facility] Jan 01, 2014 ADVANCE DIRECTIVE DISCUSSION DAVID RODRIGUEZ [facility] September 28, 2013 ADVANCE DIRECTIVE DISCUSSION LENNY MACHUCA [facility] Aug 23, 2013 ADVANCE DIRECTIVE DISCUSSION [facility] Encounter Notes: All associated encounter notes This section contains the clinical notes associated to the Encounter. Date/Time Encounter Note(s) Provider Source Jul 24, 2024 08:34 AM ACCOUNTING OF DISC LOSURES NOTE: LOCAL TITLE: STATE PRESCRIPTION DRUG MONITORING PROGRAM STANDARD TITLE: ACCOUNTING OF DISCLOSURES NOTE DATE OF NOTE: JUL 24, 2024@08:34:07 ENTRY DATE: JUL 24, 2024@08:34:07 AUTHOR: RADHA FIELDS COSIGNER: URGENCY: STATUS: COMPLETED This PDMP query was submitted by Radha Fields The clinical justification for this PDMP query is to review controlled substances prescribed outside of the [facility], and any additional information that may become available, as an important component of standard clinical care, and in accordance with [facility] policy. Patient information was shared with the PDMP [place]. No prescription(s) for controlled substances outside the [facility] were found in the last 90 days. /stiven/ RADHA FIELDS MD Signed: 07/24/2024 08:34 RAD[facility] FIELDS [facility] Jul 24, 2024 08:34 AM PHARMACY MEDICATIO N MGT NOTE: LOCAL TITLE: CONTROLLED SUBSTANCES PRESCRIBING PB STANDARD TITLE: PHARMACY MEDICATION MGT NOTE DATE OF NOTE: JUL 24, 2024@08:34 ENTRY DATE: JUL 24, 2024@08:34:49 AUTHOR: RADHA FIELDS COSIGNER: URGENCY: STATUS: COMPLETED Other Controlled Substances Renewal Prescription - more than 1 RX in the past 90 days (i.e. CHRONIC patients, multiple short-term prescriptions) SPDMP completed Prog Note DT Title Author Last Jaswinder DT 07/24/2024 STATE PRESCRIPTION DRUG RADHA FIELDS MONITORING PROGRAM Reviewed the risk factors and clinical benefit justify this prescription. Yes /manuel FIELDS MD Signed: 07/24/2024 08:35 RADHA FIELDS [facility] May 02, 2024 01:38 PM PRIMARY CARE PROGR ESS NOTE: LOCAL TITLE: PRIMARY CARE CLINIC PROGRESS NOTE PB STANDARD TITLE: PRIMARY CARE PROGRESS NOTE DATE OF NOTE: MAY 02, 2024@13:38 ENTRY DATE: MAY 02, 2024@13:38:58 AUTHOR: RADHA FIELDS EXP COSIGNER: URGENCY: STATUS: COMPLETED is presenting to the clinic today for his/her Telehealth appointment as scheduled. [place] was assured that the Telehealth visit is a private, confidential clinical encounter and will not be recorded. The Telehealth process, procedures and expectations were explained to the patient, allowing time to voice any concerns. [place] voiced understanding and consented to the Clinic visit. The visit proceeded without difficulty. DATE & TIME:Apr@13:39 CHIEF COMPLAINT: annual exam, review labs HISTORY OF PRESENT ILLNESS: colonoscopy 3 yrs ago [place] 10 polyps removed not taking vit b12 injections at home metoprolol PAST MEDICAL HISTORY: 1) Exposure to potentially hazardous substance 2) Chronic obstructive lung disease 3) Hyperlipidemia 4) Congestive heart failure 5) Coronary artery disease 6) Gastroesophageal Reflux Disease ([facility] [id number]) 7) Benign Prostatic Hypertrophy without Outflow Obstruction ([facility] [id number]) 8) Insomnia ([facility] [id number]) 9) Allergic Rhinitis ([facility] [id number]) 10) HTN - Hypertension ([facility] [id number]) 11) Polyneuropathy ([facility] [id number]) 12) Degeneration of Lumbar Intervertebral Disc ([facility] [id number]) 13) History of coronary artery bypass grafting 14) Probable pericardiac cyst or fat pad was seen on chest x-ray 15) Pleural thickening 16) Dyspnea on exertion 17) Meniere's disease 18) Abdominal hernia surgery 19) Bone spur of left elbow 20) quit tobacco 1996 21) no thoracic no ascend no descend no AAA by cta 04/2024 SOCIAL HISTORY: lives with pets at home 3 cats and a dog Tobacco: none Alcohol: social FAMILY HISTORY: cancer younger brother brain cancer at 52 yo mgm stomach cancer at 54yo brother had cabg x3, living brother cabg x3 dad chf at 83yo Allergies: Patient has answered [facility] MEDIACTIONS: Active Outpatient Medications (including Supplies): Active Outpatient Medications Status 1) ALBUTEROL 90MCG (CFC-F) 200D ORAL INHL INHALE 2 PUFFS ORAL ACTIVE INHALATION FOUR TIMES A DAY SHAKE WELL. RINSE MOUTHPIECE FREQUENTLY TO PREVENT CLOGGING. Indication: FOR SHORTNESS OF BREATH 2) ALIROCUMAB 150MG/ML INJ 1ML PEN INJECT 150MG UNDER THE SKIN ACTIVE EVERY 4 WEEKS Indication: FOR HIGH CHOLESTEROL 3) ARTIFICIAL TEARS PVA 1.4%/POVIDONE (PF) INSTILL 1 DROP IN ACTIVE BOTH EYES TWICE A DAY Indication: FOR DRY EYE(S) 4) ASPIRIN 81MG EC TAB TAKE ONE TABLET BY MOUTH ONCE A DAY ACTIVE TAKE WITH FOOD. Indication: FOR CARDIOVASCULAR DISEASE 5) ATORVASTATIN CALCIUM 80MG TAB TAKE ONE-HALF TABLET BY MOUTH ACTIVE (S) EVERY EVENING Indication: FOR HIGH CHOLESTEROL 6) CAPSAICIN 0.075% CREAM APPLY SPARINGLY TO AFFECTED AREA(S) ACTIVE FOUR TIMES A DAY FOR EXTERNAL USE ONLY. WASH HANDS AFTER APPLICATION. TO BILATERAL FEET. WASH HANDS WITH SOAP AND WATER THOROUGHLY AFTER USE. Indication: FOR NEUROPATHIC PAIN 7) CLOPIDOGREL BISULFATE 75MG TAB TAKE ONE TABLET BY MOUTH ONCE ACTIVE A DAY 8) CYANOCOBALAMIN 1000MCG/ML INJ INJECT 1000MCG/1ML ACTIVE INTRAMUSCULARLY EVERY 2 MONTHS DECREASED DURATION Indication: FOR VITAMIN B12 SUPPLEMENTATION 9) DULOXETINE HCL 60MG EC CAP TAKE ONE CAPSULE BY MOUTH ONCE A ACTIVE (S) DAY DO NOT ABRUPTLY DISCONTINUE MEDICATION. Indication: FOR MUSCULOSKELETAL PAIN 10) FUROSEMIDE 20MG TAB TAKE ONE TABLET BY MOUTH EVERY MORNING ACTIVE (S) 11) HYDROXYZINE HCL 50MG TAB TAKE TWO TABLETS BY MOUTH AT ACTIVE BEDTIME NEEDED *MAY CAUSE DROWSINESS* Indication: INSOMNIA 12) LIDOCAINE 5% PATCH APPLY 1 PATCH TO SKIN SITE ONCE A DAY ACTIVE APPLY PATCH AND PRESS FIRMLY FOR 10-15 SECONDS. KEEP ON FOR 12 HOURS THEN REMOVE PATCH FOR 12 HOURS. MAY USE ON LOWER BACK AND/OR BILATERAL KNEES Indication: FOR PAIN 13) LORATADINE 10MG TAB TAKE ONE TABLET BY MOUTH ONCE A DAY ON ACTIVE (S) EMPTY STOMACH Indication: FOR ALLERGIC RHINITIS 14) MELATONIN 5MG CAP/TAB TAKE ONE CAP/TAB BY MOUTH AT BEDTIME ACTIVE Indication: FOR SLEEP 15) METOPROLOL TARTRATE 25MG TAB TAKE ONE TABLET BY MOUTH TWICE ACTIVE (S) A DAY TAKE WITH OR IMMEDIATELY FOLLOWING FOOD. 16) MONTELUKAST NA 10MG TAB TAKE ONE TABLET BY MOUTH EVERY ACTIVE (S) EVENING Indication: FOR ALLERGIC RHINITIS 17) MULTIVITAMIN CAP/TAB TAKE 1 TABLET BY MOUTH ONCE A DAY ACTIVE (S) Indication: FOR NUTRITION/DIETARY SUPPLEMENTATION 18) NALOXONE HCL 4MG/SPRAY SOLN NASAL SPRAY USE 1 SPRAY (4MG) ACTIVE INTO ONE NOSTRIL ONLY ONE-TIME DO NOT PRIME NASAL SPRAYS. GIVE ADDITIONAL DOSE IF PATIENT DOES NOT RESPOND WITHIN 2-3 MINUTES OR RESPONDING BUT STOPS BREATHING AGAIN. CALL 911. IF USED, NOTIFY YOUR PROVIDER. Indication: FOR OPIOID OVERDOSE 19) NITROGLYCERIN 0.4MG SL TAB DISSOLVE ONE TABLET UNDER THE ACTIVE TONGUE ONE-TIME NEEDED ; IF NO IMPROVEMENT AFTER FIRST DOSE CALL 9--1. MAY TAKE 2 ADDITIONAL DOSES, 5 MINUTES APART Indication: FOR CHEST PAIN 20) OMEPRAZOLE 20MG EC CAP TAKE ONE CAPSULE BY MOUTH TWO TIMES A ACTIVE (S) DAY BEFORE MEALS TAKE 30 MINUTES PRIOR TO FOOD. Indication: FOR GASTROESOPHAGEAL REFLUX DISEASE 21) RANOLAZINE 1000MG SA TAB TAKE ONE TABLET BY MOUTH TWICE A ACTIVE DAY *SWALLOW WHOLE- DO NOT CRUSH,BREAK OR CHEW* Indication: FOR CHEST PAIN 22) SYRINGE 2.5-3ML/NDL 22G 1.5IN USE 1 SYRINGE INTRAMUSCULARLY ACTIVE ONCE A DAY Indication: FOR INJECTION 23) TAMSULOSIN HCL 0.4MG CAP TAKE TWO CAPSULES BY MOUTH EVERY ACTIVE EVENING APPROXIMATELY 30 MINUTES AFTER THE SAME MEAL EACH DAY Indication: FOR BENIGN PROSTATIC HYPERPLASIA 24) TRAMADOL HCL 50MG TAB TAKE 1 TABLET BY MOUTH TWICE DAILY ACTIVE (S) NEEDED Indication: FOR PAIN Active Non-VA Medications Status 1) Non-VA APPLE CIDER VINEGAR CAP/TAB 1 CAP/TAB BY MOUTH ONCE A ACTIVE DAY Indication: supplement 2) Non-VA CHOLECALCIF 25MCG (D3-1,000UNIT) TAB 25MCG BY MOUTH ACTIVE ONCE A DAY Indication: FOR VITAMIN D DEFICIENCY 3) Non-VA FISH OIL 1000MG (500MG DHA/EPA) CAP 2000MG BY MOUTH ACTIVE THREE TIMES A DAY WITH MEALS Indication: FOR HIGH TRIGLYCERIDES 4) Non-VA LEVOCARNITINE 500MG CAP 1000MG BY MOUTH EVERY MORNING ACTIVE Indication: FOR DIETARY CARNITINE DEFICIENCY 5) Non-VA MULTIVITAMIN/MINERAL ANTIOXIDANT CAP/TAB 1 CAP/TAB BY ACTIVE MOUTH ONCE A DAY Indication: FOR NUTRITION/DIETARY SUPPLEMENTATION 29 Total Medications REVIEW OF SYSTEMS: Review of Systems Systemic: Denies fatique, fever, chills, or weight loss CV: Denies chest pain, palpitations Pulm: Denies hemoptysis, wheezing GI: Denies constipation, bloody stools. Musculoskeletal: Denies swelling Neuro: Denies slurred speech Skin: Denies abnormal lesions, denies any new rashes PSYCH: Denies SI/HI PHYSICAL ASSESSMENT: VITAL SIGNS Pulse: 72 (05/02/2024 13:06) Blood Pressure: 134/78 (05/02/2024 13:06) Respiratory Rate: 20 (05/02/2024 13:06) Temperature: 97.7 F [36.5 C] (05/02/2024 13:06) Weight: 200.4 lb [90.90 kg] (05/02/2024 13:06) Height: 68 in [172.7 cm] (05/03/2023 13:55) Pain: 3 (05/02/2024 13:06) GENERAL: Appears in no acute distress. HEENT: Conjunctiva are clear without exudate or gross hemorrhage. Sclera nonicteric. EOM are intact. Ear canals without discharge, Tympanic membrane is without acute changes. Oropharynx is normal in appearance and without swelling or exudate NECK: appearance is normal and without gross masses CARDIAC: Regular rate and rhythm. No JVD RESPIRATORY: CTA bilaterally no rhonchi wheezing or rails. Nonlabored respirations GI: Abdomen normal bowel sounds MUSCULOSKELETAL: No joint effusions, moving extremiteis without difficulty SKIN: Appropriate color for ethnicity. NEUROLOGICAL: The [place] is alert and oriented without distress. Gait is at baseline PSYCHOLOGICAL: Appropriate mood and affect. No suicidal or homicidal ideation. A/P: ASSESSMENT and PLAN 1) Exposure to potentially hazardous substance 2) Chronic obstructive lung disease 3) Hyperlipidemia 4) Congestive heart failure 5) Coronary artery disease 6) Gastroesophageal Reflux Disease ([facility] [id number]) 7) Benign Prostatic Hypertrophy without Outflow Obstruction ([facility] [id number]) 8) Insomnia ([facility] [id number]) 9) Allergic Rhinitis ([facility] [id number]) 10) HTN - Hypertension ([facility] [id number]) 11) Polyneuropathy ([facility] [id number]) 12) Degeneration of Lumbar Intervertebral Disc ([facility] [id number]) 13) History of coronary artery bypass grafting 14) Probable pericardiac cyst or fat pad was seen on chest x-ray 15) Pleural thickening 16) Dyspnea on exertion 17) Meniere's disease 18) Abdominal hernia surgery 19) Bone spur of left elbow 20) quit tobacco 1996 21) no thoracic no ascend no descend no AAA by cta 04/2024 -labs reviewed cataract sx bilaterally 2023 carpal tunnel sx coming up soon sees DR Uzma kumari, and kavon marie said they discussed results of cardiac echo from [place] blood pressure when checked before surgery 170's down since then, usually 123/ 70's starting jiardiance and lisinopril 1.25 milligrams daily for chf prediabetic now hbga1c = 6.4 insomnia -to try over the counter (3 in 1) sleeping aid, if starting otc then can stop the melatonin, but can continue hydroxyzine eye screening test colonoscopy 3 yrs ago [place] 10 polyps removed, needs fu colonoscopy Health Maintenance: Discussed preventative health to include diet and exercise including immunizations. Stable. Discussed medications with patient; med rec completed. Continue current regimen as prescribed by PCP and specialists. RTC as needed if developing any new or worsening symptoms. Please notify PACT with medication changes or for orders coordination as needed if seen by a specialist in the future. Discussed with patient that in the event of community imaging / testing being ordered in the future, once the imaging / testing has been completed, please notify PACT of completion at outside facility if not called with results within 1 week by a [place] PACT member; this is due to intermittent lapses in notification of imaging completion within [facility]. -Follow-up with me every Decemeber for annual labs and annual exam -Follow-up with me as needed. All questions answered; agrees to plan of care. Follow up as listed above, annually, and as needed. Keep all appointments. Medications Reconciled. *Microalbumin Test: Urine Microalbumin ordered. *CHF: Patient was instructed to notify their Primary Care Physician/health care provider for any significant weight changes of greater than 2-3 pounds over night or greater than 3-5 pounds in the course of a week. Level of Understanding: Good Patient is currently taking MAJO Inhibitors. Avg Risk Colorectal Cancer Screen - L,N,P,PH: AVERAGE RISK colorectal cancer screening is due based on information available to this clinical reminder Screening is due now. Colonoscopy consult has been ordered. See orders tab for details. /stiven/ RADHA FIELDS MD Signed: 05/03/2024 15:46 RADHA FIELDS [facility]
--- OUTSIDE RECORDS SUMMARY | 2024-05-02 07:46 | XMS_ITS | Encounter Summary ---
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 (WNR) May 16, 2023 [id number] ERICKA CHANDLER PATIENT AARP [facility] (WNR) MEDICARE ADVANTAGE [facility] (WNR) May 16, 2022 [id number] ERICKA CHANDLER PATIENT CARE IMPROVE PLUS [facility] (WNR) MEDICARE ADVANTAGE [facility] (WNR) May 16, 2015 [id number] ERICKA CHANDLER [facility] (WNR) MEDICARE ADVANTAGE [facility] (WNR) Jun 16, 2019 [id number] ERICKA CHANDLER (WNR) MEDICARE ADVANTAGE [facility] (WNR) Jun 16, 2019 [id number] [phone] ERICKA CHANDLER PATIENT MEDICARE PART D (WNR) MEDICARE (M) PART D September 13, 2018 PART D [id number] ERICKA CHANDLER PATIENT MEDICARE PART D (WNR) MEDICARE (M) PART D September 13, 2018 PART D [id number] ERICKA CHANDLER PATIENT MEDICARE PART D (WNR) MEDICARE (M) PART D May 16, 2015 PART D [id number] [phone] ERICKA CHANDLER MEDICARE PART D (WNR) MEDICARE (M) PART D May 16, 2015 PART D [id number] ERICKA CHANDLER MEDICARE PART D (WNR) MEDICARE (M) PART D May 16, 2015 PART D [id number] ERICKA CHANDLER [facility] (WNR) MEDICARE ADVANTAGE [facility] (WNR) Feb 13, 2021 [id number] ERICKA CHANDLER [facility] (WNR) MEDICARE ADVANTAGE [facility] (WNR) Feb 13, 2021 [id number] [phone] ERICKA CHANDLER PATIENT Selected Encounter This section includes the information on record at NE for the Encounter. Date/Time Encounter Type Encounter Description Reason Provider Source May 02, 2024 12:46 PM TELEHEALTH FACILITY FEE PRIMARY CARE/MEDICINE ICD-10-CM Z00.01 Encounter for general adult medical exam w abnormal findings MELONY FIELDS Encounter Template Text not used by NE Assessments - Encounter Diagnoses This section includes the primary and secondary diagnoses documented for the Encounter. Date/Time Primary/Secondary Diagnosis Diagnosis Name Provider Source May 04, 2024 03:34 PM PRIMARY Encounter for general adult medical exam w abnormal findings RHONDA TILLMAN [facility] Plan of Treatment: Future Appointments (+ 6 months) and Future Tests (+/- 45 days) The Plan of Treatment section includes future care activities for the patient from all [place] treatmentfacritical access hospitalities. This section includes future appointments and future orders which are active, pending or scheduled. Future Appointments This section includes appointments that were scheduled to occur 6 months from the date of the Encounter, up to a maximum of 20 appointments. The data comes from all [place] treatment facilities. Appointment Date/Time Appointment Type Appointme nt Facility Name September 25, 2024 10:00 AM AMBULATORY - MEDICINE [facility] September 25, 2024 10:15 AM AMBULATORY - MEDICINE [facility] October 02, 2024 08:40 AM AMBULATORY [facility] October 04, 2024 10:00 AM AMBULATORY MEDICINE [facility] Oct 16, 2024 08:30 AM AMBULATORY MEDICINE [facility] Oct 16, 2024 08:32 AM [facility] - [facility]ICINE [place] [facility] Oct 16, 2024 11:40 AM [facility] Lab Results: +/- 30 days of the encounter This section includes the Chemistry and Hematology Lab Results on record with NE for the patient. Radiology Reports and Pathology Reports are provided separately, in subsequent sections. Lab Results This section contains the Chemistry/Hematology Results that were resulted 30 days before or 30 daysafter the date of the Encounter. Date/Time Source Result Type Result - Unit Interpretation Reference Range Specimen Type Comment Apr 25, 2024 09:40 AM [facility] CHOLESTEROL PANEL (PB) PLASMA Specimen Type: PLASMA No comment entered. Ordering Provider: TY PAULSON Report Released Date/Time: Dec 26, 2023 07:49 AM Reporting Lab: [place] [facility] [address] [place] [address] Performing Lab: [place] [facility] [address] [place] [address] CHOLESTEROL 75 mg/dL 0-200 TRIGLYCERIDE 142 mg/dL 0-150 CALCULATED LDL -0.4 mg/dL HDL(New) 47.0 mg/dL H >40 HDL % OF TOTAL CHOLESTEROL (PB) 62.7 >25 Apr 25, 2024 09:40 AM [facility] DIRECT LDL (MA-PB) PLASMA Specimen Type: PLASM A No comment entered. Ordering Provider: TY PAULSON Report Released Date/Time: Dec 26, 2023 07:49 AM Reporting Lab: [place] [facility] [address] [place] [address] Performing Lab: [place] [facility] [address] [place] [address] DIRECT LDL 9.7 mg/dL 0-99.9 Apr 25, 2024 09:40 AM [facility] VITAMIN D, 25-HYDROXY SERUM Specimen Type: SE RUM No comment entered. Ordering Provider: TY PAULSON Report Released Date/Time: Dec 26, 2023 07:49 AM Reporting Lab: [place] [facility] [address] [place] [address] Performing Lab: [place] [facility] [address] [place] [address] VITAMIN D, 25-HYDROXY 42.2 ng/mL 30-96 Apr 25, 2024 09:40 AM [facility] FOLATE (PB) SERUM Specimen Typ e: SERUM No comment entered. Ordering Provider: TY PAULSON Report Released Date/Time: Dec 26, 2023 07:49 AM Reporting Lab: [place] [facility] [address] [place] [address] Performing Lab: [place] [facility] [address] [place] [address] FOLATE (PB) 16.6 ng/mL 7-20 Apr 25, 2024 09:40 AM [facility] B12 SERUM Specimen Type: SERUM No comment entered. Ordering Provider: TY PAULSON Report Released Date/Time: Dec 26, 2023 07:49 AM Reporting Lab: [place] [facility] [address] [place] [address] Performing Lab: [place] [facility] [address] [place] [address] B12 572 pg/mL 213-816 Apr 25, 2024 09:40 AM [facility] COMPREHENSIVE METABOLIC PANEL PLASMA Specimen Type: PLASMA No comment entered. Ordering Provider: TY PAULSON Report Released Date/Time: Dec 26, 2023 07:49 AM Reporting Lab: [place] [facility] [address] [place] [address] Performing Lab: [place] [facility] [address] [place] [address] CREATININE 1.12 mg/dL 0.7-1.3 UREA NITROGEN 23 [...] 2020) 71 Apr 25, 2024 09:40 AM [facility] HGA1C BLOOD Specimen Type: BLOOD No comment entered. Ordering Provider: TY PAULSON Report Released Date/Time: Dec 26, 2023 07:49 AM Reporting Lab: [place] [facility] [address] [place] [address] Performing Lab: [place] [facility] [address] [place] [address] HGA1C 6.4 H 4.0-6.0 Vital Signs: All taken on the encounter date This section contains inpatient and outpatient Vital Signs collected on the date of the Encounter. Date/Time Temperature Pulse Blood Pressure Respiratory Rate SP02 Pain Height Weight Body Mass Index Source May 02, 2024 01:06 PM 97.7 72 134/78 20 95 3 200.4 31 [facility] Social History: Smoking Status (Most current) and Tobacco Use (All prior to encounter date) This section includes the most current, and the historical, smoking and tobacco- related health factors from the NE facility where the Encounter took place. Current Smoking Status This section includes the most current smoking, or tobacco-related health factor, from the NE facility where the Encounter took place. Date/Time Current Smoking Status Comment Jacklyn huerta May 03, 2023 01:16 PM VA-TOBACCO FORMER USER [facility] Tobacco Use History This section includes a history of the smoking, or tobacco-related health factors, that were collected on or before the date of the Encounter. The data comes from the NE facility where the Encounter took place. Date/Time Smoking Status/Tobacco Use Comment F acility May 03, 2023 01:16 PM VA-TOBACCO QUIT 15 YRS OR MORE [facility] Advance Directives: All historical and current Section Date Range: From patient's date of to the date document was created. This section includes ALL of a patient's completed or amended NE Advance and Rescinded Directives. The entries below indicate that a directive exists for the patient, but an actual copy is not included with this document. The data comes from all NE facilities. Date Advance Directives Provider Source September 26, 2014 ADVANCE DIRECTIVE DISCUSSION GRACIELA YUSUF RA [facility] Apr 24, 2014 ADVANCE DIRECTIVE DISCUSSION GRACIELA YUSUF RA [facility] Jan 01, 2014 ADVANCE DIRECTIVE DISCUSSION DAVID RODRIGUEZ [facility] September 28, 2013 ADVANCE DIRECTIVE DISCUSSION LENNY MACUHCA [facility] Aug 23, 2013 ADVANCE DIRECTIVE DISCUSSION WILLIAM ENG [facility] Encounter Notes: All associated encounter notes This section contains the clinical notes associated to the Encounter. Date/Time Encounter Note(s) Provider Source May 02, 2024 01:07 PM PRIMARY CARE NURSI BARBIE NOTE: LOCAL TITLE: PRIMARY CARE NURSING PROGRESS NOTE (TEXT) NURSING P STANDARD TITLE: PRIMARY CARE NURSING NOTE DATE OF NOTE: MAY 02, 2024@13:07 ENTRY DATE: MAY 02, 2024@13:07:32 AUTHOR: RHONDA TILLMAN EXP COSIGNER: URGENCY: STATUS: COMPLETED Established Patient ERICKA CHANDLER IS A 68 YEAR OLD MALE BEING SEEN IN CLINIC MAY 02, 2024. REASON FOR VISIT: Here for annual follow up on chronic health conditions and to review lab. Are you receiving care any where other than the VA? No HEALTH AND SURGICAL HISTORY: Does patient report using home oxygen? CURRENT ACTIVE MEDICATIONS FOR REVIEW: Allergies/ADRs (Tool #5) FACILITY ALLERGY/ADR -------- [facility] KNOWN ALLERGIES DAX DAVILA [facility] NO KNOWN ALLERGIES PH[facility] NO KNOWN ALLERGIES [facility] No Known Allergies [facility] NO KNOWN ALLERGIES Med. Reconciliation (Tool #1) INCLUDED IN THIS LIST: Alphabetical list of active outpatient prescriptions dispensed from this NE (local) and dispensed from another NE or DoD facility (remote) as well as inpatient orders (local pending and active), local clinic medications, locally documented non-VA medications, and local prescriptions that have or been discontinued in the past 90 days. Non-VA Meds Last Documented On: September 21, 2023 NOTE The display of VA prescriptions dispensed from another NE or DoD facility (remote) is limited to active outpatient prescription entries matched to National Drug File at the originating site and may not include some items such as investigational drugs, compounds, etc. NOT INCLUDED IN THIS LIST: Medications self-entered by the patient into personal health records (i.e. [employer]) are NOT included in this list. Non-VA medications documented outside this NE, remote inpatient orders (regardless of status) and remote clinic medications are NOT included in this list. The patient and provider must always discuss medications the patient is taking, regardless of where the medication was dispensed or obtained. OUTPT ALBUTEROL 90MCG (CFC-F) 200D ORAL INHL (Status = Active) INHALE 2 PUFFS ORAL INHALATION FOUR TIMES A DAY FOR SHORTNESS OF BREATH SHAKE WELL. RINSE MOUTHPIECE FREQUENTLY TO PREVENT CLOGGING. Rx# [id number] Last Released: 11/30/23 Qty/Days Supply: 06/14 Rx Expiration Date: 05/03/24 Refills Remainin Indication: FOR SHORTNESS OF BREATH OUTPT ALIROCUMAB 150MG/ML INJ 1ML PEN (Status = Active) INJECT 150MG UNDER THE SKIN EVERY 4 WEEKS FOR HIGH CHOLESTEROL Rx# [id number] Last Released: 03/27/24 Qty/Days Supply: 07/13 Rx Expiration Date: 09/21/24 Refills Remainin Indication: FOR HIGH CHOLESTEROL Non-VA APPLE CIDER VINEGAR CAP/TAB TAKE 1 CAP/TAB BY MOUTH ONCE A DAY Jul 14, 2023 VA RX: Non-VA medication recommended by VA provider VA RX: Patient wants to buy from Non-VA pharmacy Indication: supplement OUTPT ARTIFICIAL TEARS PVA 1.4%/POVIDONE (PF) (Status = Active) INSTILL 1 DROP IN BOTH EYES TWICE A DAY FOR DRY EYE(S) Rx# [id number] Last Released: 01/30/24 Qty/Days Supply: 90/90 Rx Expiration Date: 01/24/25 Refills Remainin Indication: FOR DRY EYE(S) OUTPT ASPIRIN 81MG EC TAB (Status = Discontinued) TAKE ONE TABLET BY MOUTH ONCE A DAY FOR CARDIOVASCULAR DISEASE TAKE WITH FOOD. Rx# [id number] Last Released: 02/07/24 Qty/Days Supply: 120/90 Rx Expiration Date: 05/03/24 Refills Remainin Indication: FOR CARDIOVASCULAR DISEASE OUTPT ASPIRIN 81MG EC TAB (Status = Active) TAKE ONE TABLET BY MOUTH ONCE A DAY FOR CARDIOVASCULAR DISEASE TAKE WITH FOOD. Rx# [id number] Last Released: 04/28/24 Qty/Days Supply: 120/90 Rx Expiration Date: 03/10/25 Refills Remainin Indication: FOR CARDIOVASCULAR DISEASE OUTPT ATORVASTATIN CALCIUM 80MG TAB (Status = Discontinued) TAKE ONE-HALF TABLET BY MOUTH EVERY EVENING FOR HIGH CHOLESTEROL Rx# [id number] Last Released: 03/14/24 Qty/Days Supply: 30 Rx Expiration Date: 05/24/24 Refills Remainin Indication: FOR HIGH CHOLESTEROL OUTPT ATORVASTATIN CALCIUM 80MG TAB (Status = Active/Suspended) TAKE ONE-HALF TABLET BY MOUTH EVERY EVENING FOR HIGH CHOLESTEROL Rx# [id number] Last Released: 04/19/24 Qty/Days Supply: Rx Expiration Date: 03/29/25 Refills Remainin Indication: FOR HIGH CHOLESTEROL OUTPT CAPSAICIN 0.075% CREAM (Status = Active) APPLY SPARINGLY TO AFFECTED AREA(S) FOUR TIMES A DAY FOR NEUROPATHIC PAIN FOR EXTERNAL USE ONLY. WASH HANDS AFTER APPLICATION. TO BILATERAL FEET. WASH HANDS WITH SOAP AND WATER THOROUGHLY AFTER USE. Rx# [id number] Last Released: 11/01/23 Qty/Days Supply: Rx Expiration Date: 06/22/24 Refills Remainin Indication: FOR NEUROPATHIC PAIN Non-VA CHOLECALCIF 25MCG (D3-1,000UNIT) TAB TAKE ONE TABLET BY MOUTH ONCE A DAY May 18, 2023 NE RX: Non-VA medication recommended by NE provider VA RX: Patient wants to buy from Non-NE pharmacy Indication: FOR VITAMIN D DEFICIENCY OUTPT CLOPIDOGREL BISULFATE 75MG TAB (Status = Active) TAKE ONE TABLET BY MOUTH ONCE A DAY Rx# [id number] Last Released: 03/14/24 Qty/Days Supply: Rx Expiration Date: 01/03/25 Refills Remainin OUTPT CYANOCOBALAMIN 1000MCG/ML INJ (Status = Active) INJECT 1000MCG/1ML INTRAMUSCULARLY EVERY 2 MONTHS FOR VITAMIN B12 SUPPLEMENTATION DECREASED DURATION Rx# [id number] Last Released: 12/30/23 Qty/Days Supply: Rx Expiration Date: 12/26/24 Refills Remainin Indication: FOR VITAMIN B12 SUPPLEMENTATION OUTPT DICLOFENAC NA 1% TOP GEL (Status = Discontinued) APPLY 4 GM TO AFFECTED AREA(S) FOUR TIMES A DAY FOR PAIN/INFLAMMATION; NOT MORE THAN 16 GRAMS DAILY TO ANY LOWER EXTREMITY JOINT. NOT MORE THAN 8 GRAMS DAILY TO ANY UPPER EXTREMITY JOINT. MAX 32GM/DAY OVER ALL JOINTS. (MEASURE DOSE WITH RULER ATTACHED INSIDE BOX) Rx# [id number] Last Released: 08/18/23 Qty/Days Supply: 100 Rx Expiration Date: 08/17/24 Refills Remainin OUTPT DOXEPIN 3MG TAB (Status = Discontinued) TAKE ONE TABLET BY MOUTH AT BEDTIME NEEDED FOR INSOMNIA MAY INCREASE TO 2 TABLETS IF NEEDED Rx# [id number] Last Released: 07/27/23 Qty/Days Supply: Rx Expiration Date: 07/21/24 Refills Remainin Indication: FOR INSOMNIA OUTPT DULOXETINE HCL 60MG EC CAP (Status = Discontinued) TAKE ONE CAPSULE BY MOUTH ONCE A DAY FOR MUSCULOSKELETAL PAIN DO NOT ABRUPTLY DISCONTINUE MEDICATION. Rx# [id number] Last Released: 03/30/24 Qty/Days Supply: Rx Expiration Date: 07/21/24 Refills Remainin Indication: FOR MUSCULOSKELETAL PAIN OUTPT DULOXETINE HCL 60MG EC CAP (Status = Active/Suspended) TAKE ONE CAPSULE BY MOUTH ONCE A DAY FOR MUSCULOSKELETAL PAIN DO NOT ABRUPTLY DISCONTINUE MEDICATION. Rx# [id number] Last Released: Qty/Days Supply: Rx Expiration Date: 05/01/25 Refills Remainin Indication: FOR MUSCULOSKELETAL PAIN Non-VA FISH OIL 1000MG (500MG DHA/EPA) CAP TAKE 2 CAPSULES BY MOUTH THREE TIMES A DAY WITH MEALS Jul 14, 2023 VA RX: Non-VA medication recommended by NE provider NE RX: Patient wants to buy from Non-VA pharmacy Indication: FOR HIGH TRIGLYCERIDES OUTPT FUROSEMIDE 20MG TAB (Status = Active) TAKE ONE TABLET BY MOUTH EVERY MORNING Rx# [id number] Last Released: 09/22/23 Qty/Days Supply: Rx Expiration Date: 09/20/24 Refills Remainin OUTPT HYDROXYZINE HCL 50MG TAB (Status = Discontinued) TAKE TWO TABLETS BY MOUTH AT BEDTIME NEEDED INSOMNIA *MAY CAUSE DROWSINESS* Rx# [id number] Last Released: 01/12/24 Qty/Days Supply: Rx Expiration Date: 10/31/24 Refills Remainin Indication: INSOMNIA OUTPT HYDROXYZINE HCL 50MG TAB (Status = Active) TAKE TWO TABLETS BY MOUTH AT BEDTIME NEEDED INSOMNIA *MAY CAUSE DROWSINESS* Rx# [id number] Last Released: 04/11/24 Qty/Days Supply: Rx Expiration Date: 03/24/25 Refills Remainin Indication: INSOMNIA Non-VA LEVOCARNITINE 500MG CAP TAKE 2 CAPSULES BY MOUTH EVERY MORNING September 21, 2023 VA RX: Non-VA medication recommended by NE provider NE RX: Patient wants to buy from Non-VA pharmacy Indication: FOR DIETARY CARNITINE DEFICIENCY OUTPT LIDOCAINE 5% PATCH (Status = Active) APPLY 1 PATCH TO SKIN SITE ONCE A DAY FOR PAIN APPLY PATCH AND PRESS FIRMLY FOR 10-15 SECONDS. KEEP ON FOR 12 HOURS THEN REMOVE PATCH FOR 12 HOURS. MAY USE ON LOWER BACK AND/OR BILATERAL KNEES Rx# [id number] Last Released: 06/25/23 Qty/Days Supply: Rx Expiration Date: 06/22/24 Refills Remainin Indication: FOR PAIN OUTPT LORATADINE 10MG TAB (Status = Discontinued) TAKE ONE TABLET BY MOUTH ONCE A DAY FOR ALLERGIC RHINITIS ON EMPTY STOMACH Rx# [id number] Last Released: 03/14/24 Qty/Days Supply: Rx Expiration Date: 05/03/24 Refills Remainin Indication: FOR ALLERGIC RHINITIS OUTPT LORATADINE 10MG TAB (Status = Active/Suspended) TAKE ONE TABLET BY MOUTH ONCE A DAY FOR ALLERGIC RHINITIS ON EMPTY STOMACH Rx# [id number] Last Released: Qt Supply: Rx Expiration Date: 05/01/25 Refills Remainin Indication: FOR ALLERGIC RHINITIS OUTPT MELATONIN 5MG CAP/TAB (Status = Active) TAKE ONE CAP/TAB BY MOUTH AT BEDTIME FOR SLEEP Rx# [id number] Last Released: 04/11/24 Qty/Days Supply: Rx Expiration Date: 10/31/24 Refills Remainin Indication: FOR SLEEP OUTPT METOPROLOL TARTRATE 25MG TAB (Status = Active/Suspended) TAKE ONE TABLET BY MOUTH TWICE A DAY TAKE WITH OR IMMEDIATELY FOLLOWING FOOD. Rx# [id number] Last Released: 03/14/24 Qty/Days Supply: 180 Rx Expiration Date: 09/20/24 Refills Remainin OUTPT MONTELUKAST NA 10MG TAB (Status = Discontinued) TAKE ONE TABLET BY MOUTH EVERY EVENING FOR ALLERGIC RHINITIS Rx# [id number] Last Released: 03/10/24 Qty/Days Supply: 90 Rx Expiration Date: 05/03/24 Refills Remainin Indication: FOR ALLERGIC RHINITIS OUTPT MONTELUKAST NA 10MG TAB (Status = Active/Suspended) TAKE ONE TABLET BY MOUTH EVERY EVENING FOR ALLERGIC RHINITIS Rx# [id number] Last Released: Qty/Days Supply: Rx Expiration Date: 05/01/25 Refills Remainin Indication: FOR ALLERGIC RHINITIS OUTPT MULTIVITAMIN CAP/TAB (Status = Discontinued) TAKE 1 TABLET BY MOUTH ONCE A DAY FOR NUTRITION/DIETARY SUPPLEMENTATION Rx# [id number] Last Released: 03/14/24 Qty/Days Supply: 100/90 Rx Expiration Date: 05/03/24 Refills Remainin Indication: FOR NUTRITION/DIETARY SUPPLEMENTATION OUTPT MULTIVITAMIN CAP/TAB (Status = Active/Suspended) TAKE 1 TABLET BY MOUTH ONCE A DAY FOR NUTRITION/DIETARY SUPPLEMENTATION Rx# [id number] Last Released: Qty/Days Supply: 100/90 Rx Expiration Date: 05/01/25 Refills Remainin Indication: FOR NUTRITION/DIETARY SUPPLEMENTATION Non-VA MULTIVITAMIN/MINERAL ANTIOXIDANT CAP/TAB ANTIOXIDANT CAP/TAB TAKE 1 CAP/TAB BY MOUTH ONCE A DAY September 21, 2023 NE RX: Non-VA medication recommended by NE provider NE RX: Patient wants to buy from Non-NE pharmacy Indication: FOR NUTRITION/DIETARY SUPPLEMENTATION OUTPT NALOXONE HCL 4MG/SPRAY SOLN NASAL SPRAY (Status = Active) USE 1 SPRAY (4MG) INTO ONE NOSTRIL ONLY ONE-TIME FOR OPIOID OVERDOSE DO NOT PRIME NASAL SPRAYS. GIVE ADDITIONAL DOSE IF PATIENT DOES NOT RESPOND WITHIN 2-3 MINUTES OR RESPONDING BUT STOPS BREATHING AGAIN. CALL 911. IF USED, NOTIFY YOUR PROVIDER. Rx# [id number] Last Released: 06/29/23 Qty/Days Supply: 06/16 Rx Expiration Date: 06/27/24 Refills Remainin Indication: FOR OPIOID OVERDOSE OUTPT NITROGLYCERIN 0.4MG SL TAB (Status = Active) DISSOLVE ONE TABLET UNDER THE TONGUE ONE-TIME FOR CHEST PAIN NEEDED ; IF NO IMPROVEMENT AFTER FIRST DOSE CALL 01-14-1. MAY TAKE 2 ADDITIONAL DOSES, 5 MINUTES APART Rx# [id number] Last Released: 05/10/23 Qty/Days Supply: 100/90 Rx Expiration Date: 05/03/24 Refills Remainin Indication: FOR CHEST PAIN OUTPT OMEPRAZOLE 20MG EC CAP (Status = Discontinued) TAKE ONE CAPSULE BY MOUTH EVERY MORNING BEFORE A MEAL FOR GASTROESOPHAGEAL REFLUX DISEASE TAKE 30 MINUTES PRIOR TO FOOD. Rx# [id number] Last Released: 02/06/24 Qty/Days Supply: 90/ Rx Expiration Date: 05/03/24 Refills Remainin Indication: FOR GASTROESOPHAGEAL REFLUX DISEASE OUTPT OMEPRAZOLE 20MG EC CAP (Status = Active/Suspended) TAKE ONE CAPSULE BY MOUTH TWO TIMES A DAY BEFORE MEALS FOR GASTROESOPHAGEAL REFLUX DISEASE TAKE 30 MINUTES PRIOR TO FOOD. Rx# [id number] Last Released: 03/10/24 Qty/ Supply: 180 Rx Expiration Date: 03/09/25 Refills Remainin Indication: FOR GASTROESOPHAGEAL REFLUX DISEASE OUTPT RANOLAZINE 1000MG SA TAB (Status = Active) TAKE ONE TABLET BY MOUTH TWICE A DAY FOR CHEST PAIN *SWALLOW WHOLE- DO NOT CRUSH,BREAK OR CHEW* Rx# [id number] Last Released: 03/14/24 Qty/ Supply: 60 Rx Expiration Date: 05/03/24 Refills Remainin Indication: FOR CHEST PAIN OUTPT TAMSULOSIN HCL 0.4MG CAP (Status = Active) TAKE TWO CAPSULES BY MOUTH EVERY EVENING FOR BENIGN PROSTATIC HYPERPLASIA APPROXIMATELY 30 MINUTES AFTER THE SAME MEAL EACH DAY Rx# [id number] Last Released: 03/10/24 Qty/ Supply: 180 Rx Expiration Date: 05/03/24 Refills Remainin Indication: FOR BENIGN PROSTATIC HYPERPLASIA OUTPT TRAMADOL HCL 50MG TAB (Status = Active) TAKE 1 TABLET BY MOUTH TWICE DAILY NEEDED FOR PAIN Rx# [id number] Last Released: 03/26/24 Qty/Days Supply: 60 Rx Expiration Date: 07/11/24 Refills Remainin Indication: FOR PAIN SUPPLIES OUTPT SYRINGE 2.5-3ML/NDL 22G 1.5IN (Status = Active) USE 1 SYRINGE INTRAMUSCULARLY ONCE A DAY FOR INJECTION Rx# [id number] Last Released: 11/03/23 Qty/Days Supply: Rx Expiration Date: 11/01/24 Refills Remainin Indication: FOR INJECTION PHARMACY TERMS AND POSSIBLE PATIENT ACTIONS INPT = NE inpatient order IV = NE intravenous medication OUTPT = NE outpatient prescription PHARMACY POSSIBLE PATIENT TERMS EXPLANATION ACTIONS -------- --- ACTIVE A prescription that can be If you have refills, filled at the local NE pharmacy. you may request a refill of this prescription from your VA pharmacy. CLINIC A medication you received during If you have questions a visit to a NE clinic or about this medication emergency department. contact your NE healthcare team. DISCONTINUED A prescription your provider has Contact your VA stopped. It is no longer healthcare team if you available to be sent to you or need more of this picked up at the NE pharmacy medication. window. A prescription which is too old Contact your VA to fill. This does not refer to healthcare team if you the expiration date of the need more of this medication in the container. medication. NON-VA A medication that came from If this medication someplace other than a VA information is pharmacy. This may be a incorrect or out of prescription from either the VA date, please tell your or non VA providers that was VA healthcare team. filled outside the [facility]. Or, it may be an fuyh-vze-xpfghju (OTC), herbal, dietary supplements or sample medication. ON HOLD An active prescription that will Contact your VA not be filled until pharmacy pharmacy when you need resolves the issue. more of this medication. PARKED An active prescription that will Contact your VA not be filled until the patient pharmacy when you need requests it. this medication. PENDING This prescription order has been If you have been sent to the pharmacy for review instructed to start and is not ready yet. this medication now, contact your VA pharmacy. SUSPENDED An active prescription that is Contact your VA not scheduled to be filled yet. pharmacy if you need You should receive it before this medication now. you run out. ======== omeprazole changed to 40mg bid by gi provider IS PATIENT TAKING ANY OVER THE COUNTER MEDICATIONS, SUCH VITAMINS OR HERBAL SUPPLEMENTS, INCLUDING ANY MEDICATIONS PRESCRIBED BY ANOTHER PHYSICIAN? Yes, List: med that he does not know the name of but wants from [place]. Will bring med in. / Vitamin D daily / Fish Oil bid / Apple Cider Vinegar ALLERGIES/ADVERSE REACTIONS: Patient has answered NKA Does patient have any new allergies to report since last visit? VITALS: TEMPERATURE: 97.7 F [36.5 C] (05/02/2024 13:06) BP: 134/78 (05/02/2024 13:06) RESP: 20 (05/02/2024 13:06) PULSE: 72 (05/02/2024 13:06) HT: 68 in [172.7 cm] (05/03/2023 13:55) WT: 200.4 lb [90.90 kg] (05/02/2024 13:06) BMI: 30.5 PAIN ASSESSMENT: (Most Recent Pain Score in Vitals Package: 3 (05/02/2024 13:06) ) The patient indicated that they and their close contacts have not traveled outside of the [place] in the past 21 days. The patient reports the following symptoms: No symptoms present The patient is not immunocompromised. The patient does not report having a history of Multi Drug Resistant Organism (MDRO) within the last five years. The patient does not report having been exposed to measles, chickenpox, or zoster in last 30 days. STRESS: Thank you for your service. Now let us serve you. At the [facility], we strive to provide you with exceptional health care that improves your health and well-being. Are you feeling sad, empty, or depressed? No Do you need to talk about things in your life that worry you or cause you stress? No Do you need to talk about personal problems, family problems, alcohol use, drug use, or mental or emotional illness? No SUICIDE SCREENING: The patient was asked, Over the past two weeks, how often have you been bothered by thoughts that you would be better off or of hurting yourself in some way? Not At All SPIRITUAL ASSESSMENT: Are there mormon practices or spiritual concerns you want the medical manager, your physician, and other health care team members to immediately know about? Patient advised to call the clinic for any concerns, questions, or symptoms. Patient and/or caregiver verbalized understanding of plan of care. RHS Screen - VS: RHS Screen Environmental Check Upon inquiry, the individual reports that the environment is safe to proceed. Informed Consent to Screen and Document The individual consents to proceed with screening. The individual consents to documentation of responses. PRIMARY SCREEN: In the past 12 months, how often did a current or former intimate partner (e.g., boyfriend, girlfriend, , , sexual partner): 1. Scream or curse at you Never 2. Insult or talk down to you Never 3. Threaten you with harm Never 4. Physically hurt you Never 5. Force or pressure you to have sexual contact against your will, or when you were unable to say no Never The HITS tool (items 1-4 above) is [place] copyright protected by Kelvin Miller MD, and the user has full rights to use it throughout the [place] system. PRIMARY SCREEN RESULT: The Primary Screen is NEGATIVE. The individual answered never to all forms of IPV above (i.e., answered never to all 5 items) The individual accepts education and/or resources: No EDUCATION: The individual indicated readiness to learn. Education offered during this session as noted above. The individual indicated understanding by asking relevant questions and making appropriate comments. No barriers to learning were observed or identified. Patient/Nurse Interview: * * Patient states that questions were answered in a way that was easily understood. Herpes Zoster (Shingles) Vaccine - L,N,P,PH,U: The patient declines to receive the recommended dose of zoster (shingles) vaccine. Immunization: ZOSTER RECOMBINANT Refusal Reason: PATIENT DECISION Patient refuses all immunization(s) in the ZOSTER group Date Documented: 05/02/24 13:11 Weight Control/Nutrition Counseling: * The patient received the following counseling at this encounter: Patient was encouraged to restrict fat, especially saturated fats, in a normal diet. Benefit of a diet high in fiber was discussed. Pain Assessment: - PAIN ASSESSMENT: .. Patient is reporting some pain. PAIN SCORE TODAY: 3 Patient's self identified pain goal: 0 MOVE Weight Management: Most recent BMI: 30.5. educated on health risk of obesity and treatment is offered. Participation in a weight management program was considered/offered for this patient based on the current BMI score. Patient declines participation in a weight management program. Suicide Screen - V: C-SSRS Screening [place]-Suicide Severity Rating Scale (C-SSRS Screener) 1. Over the past month, have you wished you were or wished you could go to sleep and not wake up? No 2. Over the past month, have you had any actual thoughts of killing yourself? No 3. Over the past month, have you been thinking about how you might do this? Response not required due to responses to other questions. 4. Over the past month, have you had these thoughts and had some intention of acting on them? Response not required due to responses to other questions. 5. Over the past month, have you started to work out or worked out the details of how to kill yourself? Response not required due to responses to other questions. 6. If yes, at any time in the past month did you intend to carry out this plan? Response not required due to responses to other questions. 7. In your lifetime, have you ever done anything, started to do anything, or prepared to do anything to end your life (for example, collected pills, obtained a gun, gave away valuables, went to the roof but didn't jump)? No 8. If YES, was this within the past 3 months? Response not required due to responses to other questions. Sexual Orientation - CP,L,N,P,PH,PS,S,U: The patient thinks of their sexual orientation as: Straight or Heterosexual Depression Screening - V: Perform PHQ-2 A PHQ-2 screen was performed. The score was 0 which is a negative screen for depression. Over the past two weeks, how often have you been bothered by the following problems? 1. Little interest or pleasure in doing things Not at all 2. Feeling down, depressed, or hopeless Not at all /es/ RHONDA TILLMAN LPN Signed: 05/02/2024 13:13 RHONDA TILLMAN [facility]
--- OUTSIDE RECORDS SUMMARY | 2024-10-01 04:38 | XMS_ITS | Encounter Summary ---
Author Name [facility] [facility] Address [address] [place] [id number] Care Team Providers Care Stockroom Attendant Name Role Phone RAJAN PRUETT Primary Care Provider Unavailabl AARON Richey Primary Care Provider Unavailab MAXIME Rivas Primary Care Provider Unavaila MELONY Sewell Primary Care Provider Unavailabl ANN Cee Primary Care Provider Unavailabl miguelina BEEBE, ESTRELLA Unavailable Unavailable JACINTA SPRAGUE Unavailable [...] Summers's Name Patient's Relationship to Policy Summers [facility] (WNR) MEDICARE ADVANTAGE [facility] (WNR) May 16, 2023 [id number] ERICKA CHANDLER PATIENT AARP [facility] (WNR) MEDICARE ADVANTAGE [facility] (WNR) May 16, 2022 [id number] [phone] ERICKA CHANDLER PATIENT CARE IMPROVE PLUS [facility] (WNR) MEDICARE ADVANTAGE [facility] (WNR) May 16, 2015 [id number] [facility] MEDICARE ADVANTAGE [facility] (WNR) Jun 16, 2019 [id number] [phone] ERICKA CHANDLER [facility] (WNR) MEDICARE ADVANTAGE [facility] ([place]NR) Jun 16, 2019 [id number] [phone] ERICKA CHANDLER PATIENT MEDICARE PART D ([place]) MEDICARE (M) PART D September 13, 2018 PART D [id number] ERICKA CHANDLER PATIENT MEDICARE PART D ([place]) MEDICARE (M) PART D September 13, 2018 PART D [id number] ERICKA CHANDLER PATIENT MEDICARE PART D ([place]) MEDICARE (M) PART D May 16, 2015 PART D [id number] [phone] ERICKA CHANDLER MEDICARE PART D ([place]) MEDICARE (M) PART D May 16, 2015 PART D [id number] ERICKA CHANDLER MEDICARE PART D ([place]) MEDICARE (M) PART D May 16, 2015 PART D [id number] ERICKA CHANDLER [facility] (WNR) MEDICARE ADVANTAGE [facility] (WNR) Feb 13, 2021 [id number] ERICKA CHANDLER [facility] (WNR) MEDICARE ADVANTAGE [facility] (WNR) Feb 13, 2021 [id number] ERICKA CHANDLER PATIENT Selected Encounter This section includes the information on record at [place] for the Encounter. Date/Time Encounter Type Encounter Description Reason Pro vider Source October 01, 2024 09:38 AM Outpatient Encounter ADMIN PAT ACTIVTIES (MASNONCT) IHE Encounter Template Text not used by VA Plan of Treatment: Future Appointments (+ 6 months) and Future Tests (+/- 45 days) The Plan of Treatment section includes future care activities for the patient from all VA treatmentfacilities. This section includes future appointments and future orders which are active, pending or scheduled. Future Appointments This section includes appointments that were scheduled to occur 6 months from the date of the Encounter, up to a maximum of 20 appointments. The data comes from all [place] treatment [facility]. Appointment Date/Time Appointment Type Appointme nt Facility Name October 02, 2024 08:40 AM AMBULATORY - MEDICINE [facility] October 04, 2024 10:00 AM AM[place] [facility] Oct 16, 2024 08:30 AM AMBULATORY - MEDICINE [facility] Oct 16, 2024 08:32 AM [place] [facility] Oct 16, 2024 11:40 AM [facility] [place] [facility] Nov 07, 2024 01:40 PM [facility] [place] [facility] Nov 07, 2024 02:00 PM [facility] [place] [facility] Nov 07, 2024 02:01 PM [facility] [place] [facility] Nov 19, 2024 02:00 PM AMBULATORY - MEDICINE [facility] Nov 19, 2024 02:02 PM AM[facility]ORY - [facility]IC[facility] [place] [facility] Nov 27, 2024 01:40 PM AMBULATORY - MEDICINE [facility] Dec 11, 2024 09:20 AM AMBULATORY - MEDICINE [facility] Dec 25, 2024 09:20 AM AMBULATORY - MEDICINE [facility] Jan 08, 2025 09:20 AM AMBULATORY - MEDICINE [facility] Jan 22, 2025 09:20 AM AMBULATORY - MEDICINE [facility] Active, Pending, and Scheduled Orders This section includes a listing of several types of active, pending, and scheduled orders, including clinic medications orders, diagnostic test orders, procedure orders and consult orders; where the start date of the order is 45 days before the date of the Encounter or 45 days after the date of theEncounter. The data comes from all [facility]. Test Date/Time Test Type Test Details Facility Name October 04, 2024 12:00 AM Laboratory - Chemistry Order OCCULT BLOOD FIT X1 SCREEN (MFP ONLY) STOOL FECES [facility]ICINE [facility] Oct 31, 2024 12:00 AM Laboratory - Chemistry Order CHOLESTEROL PANEL (PB) GREEN LI/HEP BLD/PLAS PLASMA MEDICINE [facility] Oct 31, 2024 12:00 AM Laboratory - Chemistry Order HGA1C BLOOD [facility] Oct 31, 2024 12:00 AM Laboratory - Chemistry Order CBC BLOOD [facility] Oct 31, 2024 12:00 AM Laboratory - Chemistry Order COMPREHENSIVE METABOLIC PANEL GREEN LI/HEP BLD/PLAS PLASMA SP [facility] Lab Results: +/- 30 days of the encounter This section includes the Chemistry and Hematology Lab Results on record with [place] for the patient. Radiology Reports and Pathology Reports are provided separately, in subsequent sections. Lab Results This section contains the Chemistry/Hematology Results that were resulted 30 days before or 30 daysafter the date of the Encounter. Date/Time Source Result Type Result - Unit Interpretation Reference Range Specimen Type Comment September 25, 2024 10:28 AM [facility] DIRECT LDL (MA-PB) PLASMA Specimen Type: PLASMA No comment entered. Ordering Provider: TY PAULSON Report Released Date/Time: May 02, 2024 11:43 AM Reporting Lab: [place] [facility] [address] [place] [address] Performing Lab: [place] [facility] [address] [place] [address] DIRECT LDL 9.0 mg/dL 0-99.9 September 25, 2024 10:28 AM [facility] CHOLESTEROL PANEL (PB) PLASMA Specimen Type: P LASMA No comment entered. Ordering Provider: TY PAULSON Report Released Date/Time: May 02, 2024 11:43 AM Reporting Lab: [place] [facility] [address] [place] [address] Performing Lab: [place] [facility] [address] [place] [address] CHOLESTEROL 69 mg/dL 0-200 TRIGLYCERIDE 119 mg/dL 0-150 CALCULATED LDL 3.2 mg/dL HDL(New) 42.0 mg/dL H >40 HDL % OF TOTAL CHOLESTEROL (PB) 60.9 >25 September 25, 2024 10:28 AM [facility] VITAMIN D, 25-HYDROXY SERUM Specimen Type: SE RUM No comment entered. Ordering Provider: TY PAULSON Report Released Date/Time: May 02, 2024 11:43 AM Reporting Lab: [place] [facility] [address] [place] [address] Performing Lab: [place] [facility] [address] [place] [address] VITAMIN D, 25-HYDROXY 55.1 ng/mL 30-96 September 25, 2024 10:28 AM [facility] B12 SERUM Specimen Type: SERUM No comment entered. Ordering Provider: TY PAULSON Report Released Date/Time: May 02, 2024 11:43 AM Reporting Lab: [place] [facility] [address] [place] [address] Performing Lab: [place] [facility] [address] [place] [address] B12 403 pg/mL 213-816 September 25, 2024 10:28 AM [facility] COMPREHENSIVE METABOLIC PANEL PLASMA Specimen Type: PLASMA No comment entered. Ordering Provider: TY PAULSON Report Released Date/Time: May 02, 2024 11:43 AM Reporting Lab: [place] [facility] [address] [place] [address] Performing Lab: [place] [facility] [address] [place] [address] CREATININE 0.99 mg/dL 0.7-1.3 UREA NITROGEN 20 mg/dL 9-25 GLUCOSE 131 mg/dL H 72-99 SODIUM 145 meq/L 136-145 POTASSIUM 4.1 meq/L 3.5-5 CHLORIDE 106 meq/L 98-107 CARBON DIOXIDE 29 meq/L 22-31 CALCIUM 9.1 mg/dL 8.4-10.4 PROTEIN 6.5 g/dL 6-8.6 ALBUMIN 4.4 g/dL 3.4-5 TOTAL BILIRUBIN 0.8 mg/dL 0.2-1.2 ALKALINE PHOSPHATASE 57 U/L 40-150 AST/SGOT 20 U/L 5-34 ALT/SGPT 17 U/L 8-40 EGFR (CKD-EPI 2020) 82 September 25, 2024 10:28 AM [facility] HGA1C BLOOD Specimen Type: BLOOD No comment entered. Ordering Provider: TY PAULSON Report Released Date/Time: May 02, 2024 11:43 AM Reporting Lab: [place] [facility] [address] [place] [address] Performing Lab: [place] [facility] [address] [place] [address] HGA1C 5.8 4.0-6.0 September 25, 2024 10:28 AM [facility] FOLATE (PB) SERUM Specimen Typ e: SERUM No comment entered. Ordering Provider: TY PAULSON Report Released Date/Time: May 02, 2024 11:43 AM Reporting Lab: [place] [facility] [address] [place] [address] Performing Lab: [place] [facility] [address] [place] [address] FOLATE (PB) 15.7 ng/mL -September 25, 2024 10:28 AM [facility] CBC BLOOD Specimen Type: BLOOD No comment entered. Ordering Provider: TY PAULSON Report Released Date/Time: May 02, 2024 11:43 AM Reporting Lab: [place] [facility] [address] [place] [address] Performing Lab: [place] [facility] [address] [place] [address] WBC 7.5 10*3/uL 3.6-11.2 RBC 4.90 10*6/uL 4.10-5.70 HGB 13.9 g/dL 13.1-16.8 HCT 42.3 38.2-48.4 MCV 86.3 fL 80.0-100.0 MCH 28.4 pg 27.0-34.0 MCHC 32.9 g/dL L 33.0-36.0 PLT 135 10*3/uL L 150-400 MPV 10.0 fL 7.5-11.2 RDW 14.4 11.8-15.1 LYMPHOCYTES, AUTO % 29.9 MONOCYTES, AUTO % 7.5 NEUTROPHILS, AUTO % 58.1 EOSINOPHILS, AUTO % 2.9 BASOPHILS, AUTO % 0.4 LYMPHOCYTES, ABSOLUTE 2.24 10*3/uL 0.77- 4.50 MONOCYTES, ABSOLUTE 0.56 10*3/uL 0.19-0. 8 NEUTROPHILS, ABSOLUTE 4.34 10*3/uL 2.10- 8.00 EOSINOPHILS, ABSOLUTE 0.22 10*3/uL 0.00- 0.60 BASOPHILS, ABSOLUTE 0.03 10*3/uL 0.00-0. 20 NRBC% 0.3 H 0-0 IMMATURE GRANS, AUTO % 1.2 IMMATURE GRANS, AUTO ABS 0.09 10*3/uL H 0. 00-0.05 Social History: Smoking Status (Most current) and Tobacco Use (All prior to encounter date) This section includes the most current, and the historical, smoking and tobacco- related health factors from the [place] facility where the Encounter took place. Current Smoking Status This section includes the most current smoking, or tobacco-related health factor, from the [place] facility where the Encounter took place. Date/Time Current Smoking Status Comment Facil ity May 03, 2023 01:16 PM VA-TOBACCO FORMER USER [facility] Tobacco Use History This section includes a history of the smoking, or tobacco-related health factors, that were collected on or before the date of the Encounter. The data comes from the [place] facility where the Encounter took place. Date/Time Smoking Status/Tobacco Use Comment F acility May 03, 2023 01:16 PM [place]-TOBACCO QUIT 15 YRS OR MORE [facility] Advance Directives: All historical and current Section Date Range: From patient's date of to the date document was created. This section includes ALL of a patient's completed or amended [place] Advance and Rescinded Directives. The entries below indicate that a directive exists for the patient, but an actual copy is not included with this document. The data comes from all [place] facilities. Date Advance Directives Provider Source September 26, 2014 ADVANCE DIRECTIVE DISCUSSION GRACIELA YUSUF RA [facility] Apr 24, 2014 ADVANCE DIRECTIVE DISCUSSION GRACIELA YUSUF RA [facility] Jan 01, 2014 ADVANCE DIRECTIVE DISCUSSION DAVID RODRIGUEZ [facility] September 28, 2013 ADVANCE DIRECTIVE DISCUSSION LENNY MACHUCA [facility] Aug 23, 2013 ADVANCE DIRECTIVE DISCUSSION WILLIAM ENG [facility] Encounter Notes: All associated encounter notes This section contains the clinical notes associated to the Encounter. Date/Time Encounter Note(s) Provider Source October 01, 2024 09:38 AM GENERAL MEDICINE N OTE: LOCAL TITLE: General Note PB STANDARD TITLE: GENERAL MEDICINE NOTE DATE OF NOTE: OCTOBER 01, 2024@09:38 ENTRY DATE: OCTOBER 01, 2024@09:38:18 AUTHOR: YOUNG WALL EXP COSIGNER: URGENCY: STATUS: COMPLETED Eye Care At-Risk Screen - L,N,PH,U: Patient identified to be at risk for the following eye condition(s): DIABETIC RETINOPATHY: Diabetes Diagnosis Information: Encounter Diagnosis: 07/14/2023@11:00 E11.9 (ICD-10-CM) Type 2 Diabetes Mellitus without Complications rank: SECONDARY Prov. Narr. - Type 2 Diabetes Mellitus without Complications MACULAR DEGENERATION: Macular Degeneration Risk Factors Information: Reminder Term: VA-AMD RISK FACTORS Encounter Diagnosis: 05/02/2024@12:45 I25.10 (ICD-10-CM) Atherosclerotic Heart Disease of [place] Coronary Artery without Angina Pectoris rank: SECONDARY Prov. Narr. - Coronary artery disease ([facility] [id number]) Action: No Referral Ordered: Eye exam completed elsewhere by an System Administration Manager or Health Occupations Instructor Diabetic retinal exam result: Negative for Retinopathy Date: May 16, 2024 Location: [facility] /stiven/ [facility] LA[facility] [place] [facility] Signed: 10/01/2024 09:39 YOUNG WALL [facility]
--- OUTSIDE RECORDS SUMMARY | 2024-10-02 03:40 | XMS_ITS | Encounter Summary ---
Author Name [facility] [place] [facility] [place] Address [address] [place] [address] Care Team Providers Care Senior Datastage Developer Name Role Phone RAJAN PRUETT Primary Care Provider UnavailAARON Watt Primary Care Provider Unavailab MAXIME Rivas Primary Care Provider Unavaila MELONY Sewell Primary Care Provider Unavailabl ANN Cee Primary Care Provider Unavailsusanne BEEBE, ESTRELLA Unavailable Unavailable JACINTA SPRAGUE Unavailable Unavailable ORD BERNABE Unavailable Unavailable DAVIS LIN Unavailable Unavailable [...] Summers's Name Patient's Relationship to Policy Summers [facility] (WNR) MEDICARE ADVANTAGE [facility] (WNR) May 16, 2023 [id number] ERICKA CHANDLER [facility]IENT [facility] MEDIC[facility] ADVANTAGE [facility] (WNR) May 16, 2022 [id number] ERICKA CHANDLER PATIENT CARE IMPROVE PLUS [facility] (WNR) MEDICARE ADVANTAGE [facility] (WNR) May 16, 2015 [id number] AD[facility]AGE [facility] (WNR) Jun 16, 2019 [id number] ERICKA CHANDLER [facility] (WNR) MEDICARE ADVANTAGE [facility] (WNR) Jun 16, 2019 [id number] [id number] ERICKA CHANDLER PATIENT MEDICARE PART D ([place]) MEDICARE (M) PART D September 13, 2018 PART D [id number] ERICKA CHANDLER PATIENT MEDICARE PART D ([place]) MEDIC[place] (M) PART D September 13, 2018 PART D [id number] ERICKA CHANDLER PATIENT MEDICARE PART D ([place]) MEDICARE (M) PART D May 16, 2015 PART D [id number] [phone] ERICKA CHANDLER MEDICARE PART D ([place]) MEDICARE (M) PART D May 16, 2015 PART D [id number] ERICKA CHANDLER MEDICARE PART D ([place]) MEDICARE (M) PART D May 16, 2015 PART D [id number] [phone] [id number] ERICKA CHANDLER [facility] (WNR) MEDICARE ADVANTAGE [facility] (WNR) Feb 13, 2021 [id number] ERICKA CHANDLER [facility] (WNR) MEDICARE [facility] (WNR) Feb 13, 2021 [id number] ERICKA CHANDLER PATIENT Selected Encounter This section includes the information on record at [place] for the Encounter. Date/Time Encounter Type Encounter Description Reason Provider Source October 02, 2024 08:40 AM CHIROPRACT MANJ 3-4 [facility] ICD-10-CM M99.01 Segmental and somatic dysfunction of cervical region ZOË CARUSO Encounter Template Text not used by [place] Assessments - Encounter Diagnoses This section includes the primary and secondary diagnoses documented for the Encounter. Date/Time Primary/Secondary Diagnosis Diagnosis Name Provider Source October 02, 2024 09:01 AM PRIMARY Segmental and somatic dysfunction of cervical region SOFÍA,ZOËSHERIDAN RIVAS [place] [facility] October 02, 2024 09:01 AM SECONDARY Cervicalgia [facility] October 02, 2024 09:01 AM SECONDARY Oth intvrt disc degen, lumbosacr rgn w discog bck pain only [facility] October 02, 2024 09:01 AM SECONDARY Pain in thoracic spine [facility] October 02, 2024 09:01 AM SECONDARY Segmental and somatic dysfunction of lumbar region [facility] October 02, 2024 09:01 AM SECONDARY Segmental and somatic dysfunction of pelvic region [facility] October 02, 2024 09:01 AM SECONDARY Segmental and somatic dysfunction of thoracic region [facility] Plan of Treatment: Future Appointments (+ 6 months) and Future Tests (+/- 45 days) The Plan of Treatment section includes future care activities for the patient from all [place] [facility] This section includes future appointments and future orders which are active, pending or scheduled. Future Appointments This section includes appointments that were scheduled to occur 6 months from the date of the Encounter, up to a maximum of 20 appointments. The data comes from all [place] treatment facilities. Appointment Date/Time Appointment Type Appointme nt Facility Name October 04, 2024 10:00 AM [facility] [place] [facility] Oct 16, 2024 08:30 AM [facility] Oct 16, 2024 08:32 AM [facility] [place] [facility] Oct 16, 2024 11:40 AM [facility] Nov 07, 2024 01:40 PM [facility] Nov 07, 2024 02:00 PM [facility] Nov 07, 2024 02:01 PM [facility] Nov 19, 2024 02:00 PM [facility] Nov 19, 2024 02:02 PM [facility] [place] [facility] Nov 27, 2024 01:40 PM [facility] Dec 11, 2024 09:20 AM [facility] Dec 25, 2024 09:20 AM [facility]ORY - MEDICINE [facility] Jan 08, 2025 09:20 AM AMBULATORY - MEDICINE [facility] Jan 22, 2025 09:20 AM AMBULATORY - MEDICINE [facility] Active, Pending, and Scheduled Orders This section includes a listing of several types of active, pending, and scheduled orders, including clinic medications orders, diagnostic test orders, procedure orders and consult orders; where thestart date of the order is 45 days before the date of the Encounter or 45 days after the date of the Encounter. The data comes from all [facility]. Test Date/Time Test Type Test Details Facility Name October 04, 2024 12:00 AM Laboratory - Chemistry Order OCCULT BLOOD FIT X1 SCREEN (MFP ONLY) STOOL FECES [facility] Oct 31, 2024 12:00 AM Laboratory - Chemistry Order HGA1C BLOOD [facility] Oct 31, 2024 12:00 AM Laboratory - Chemistry Order CHOLESTEROL PANEL (PB) GREEN LI/HEP BLD/PLAS PLASMA [facility] Oct 31, 2024 12:00 AM Laboratory - Chemistry Order CBC BLOOD [facility] Oct 31, 2024 12:00 AM Laboratory - Chemistry Order COMPREHENSIVE METABOLIC PANEL GREEN LI/HEP BLD/PLAS PLASMA [facility] Lab Results: +/- 30 days of the encounter This section includes the Chemistry and Hematology Lab Results on record with [place] for the patient. Radiology Reports and Pathology Reports are provided separately, in subsequent sections. Lab Results This section contains the Chemistry/Hematology Results that were resulted 30 days before or 30 daysafter the date of the Encounter. Date/Time Source Result Type Result - Unit Interpretation Reference Range Specimen Type Comment September 25, 2024 10:28 AM [facility] DIRECT LDL (MA-PB) PLASMA Specimen Type: PLASMA No comment entered. Ordering Provider: TY PAULSON Report Released Date/Time: May 02, 2024 11:43 AM Reporting Lab: [place] [facility] [address] [place] [address] Performing Lab: [place] [facility] [address] [place] [address] DIRECT LDL 9.0 mg/dL 0-99.9 September 25, 2024 10:28 AM [facility] CHOLESTEROL PANEL (PB) PLASMA Specimen Type: PLASMA No comment entered. Ordering Provider: TY PAULSON Report Released Date/Time: May 02, 2024 11:43 AM Reporting Lab: [place] [facility] [address] [place] [address] Performing Lab: [place] [facility] [address] [place] [address] CHOLESTEROL 69 mg/dL 0-200 TRIGLYCERIDE 119 mg/dL 0-150 CALCULATED LDL 3.2 mg/dL HDL(New) 42.0 mg/dL H >40 HDL % OF TOTAL CHOLESTEROL (PB) 60.9 >25 September 25, 2024 10:28 AM [facility] VITAMIN D, 25-HYDROXY SERUM Specimen Type: SE RUM No comment entered. Ordering Provider: TY PAULSON Report Released Date/Time: May 02, 2024 11:43 AM Reporting Lab: [place] [facility] [address] [place] [address] Performing Lab: [place] [facility] [address] [place] [address] VITAMIN D, 25-HYDROXY 55.1 ng/mL 30-96 September 25, 2024 10:28 AM [facility] B12 SERUM Specimen Type: SERUM No comment entered. Ordering Provider: TY PAULSON Report Released Date/Time: May 02, 2024 11:43 AM Reporting Lab: [place] [facility] [address] [place] [address] Performing Lab: [place] [facility] [address] [place] [address] B12 403 pg/mL 213-816 September 25, 2024 10:28 AM [facility] COMPREHENSIVE METABOLIC PANEL PLASMA Specimen Type: PLASMA No comment entered. Ordering Provider: TY PAULSON Report Released Date/Time: May 02, 2024 11:43 AM Reporting Lab: [place] [facility] [address] [place] [address] Performing Lab: [place] [facility] [address] [place] [address] CREATININE 0.99 mg/dL 0.7-1.3 UREA NITROGEN 20 [...] 2020) 82 September 25, 2024 10:28 AM [facility] HGA1C BLOOD Specimen Type: BLOOD No comment entered. Ordering Provider: TY PAULSON Report Released Date/Time: May 02, 2024 11:43 AM Reporting Lab: [place] [facility] [address] [place] [address] Performing Lab: [place] [facility] [address] [place] [address] HGA1C 5.8 4.0-6.0 September 25, 2024 10:28 AM [facility] CB CBC BLOOD Specimen Type: BLOOD No comment entered. Ordering Provider: TY PAULSON Report Released Date/Time: May 02, 2024 11:43 AM Reporting Lab: [place] [facility] [address] [place] [address] Performing Lab: [place] [facility] [address] [place] [address] WBC 7.5 10*3/uL 3.6-11.2 RBC 4.90 10*6/uL [...] AUTO ABS 0.09 10*3/uL H 0. 00-0.05 September 25, 2024 10:28 AM [facility] FOLATE (PB) SERUM Specimen Typ e: SERUM No comment entered. Ordering Provider: YT PAULSON Report Released Date/Time: May 02, 2024 11:43 AM Reporting Lab: [place] [facility] [address] [place] [address] Performing Lab: [place] [facility] [address] [place] [facility] [address] FOLATE (PB) 15.7 ng/mL 7-20 Vital Signs: All taken on the encounter date This section contains inpatient and outpatient Vital Signs collected on the date of the Encounter. Date/Time Temperature Pulse Blood Pressure Respiratory Rate SP02 Pain Height Weight Body Mass Index Source October 02, 2024 08:40 AM 98.1 78 124/73 [facility] Social History: Smoking Status (Most current) and Tobacco Use (All prior to encounter date) This section includes the most current, and the historical, smoking and tobacco- related health factors from the [place] facility where the Encounter took place. Current Smoking Status This section includes the most current smoking, or tobacco-related health factor, from the [place] facility where the Encounter took place. Date/Time Current Smoking Status Comment Facil ity May 03, 2023 01:16 PM [place]-TOBAC[place] FORMER USER [facility] Tobacco Use History This section includes a history of the smoking, or tobacco-related health factors, that were collected on or before the date of the Encounter. The data comes from the [place] facility where the Encounter took place. Date/Time Smoking Status/Tobacco Use Comment F acility May 03, 2023 01:16 PM [place]-TOBAC[place] QUIT 15 YRS OR MORE [facility] Advance Directives: All historical and current Section Date Range: From patient's date of to the date document was created. This section includes ALL of a patient's completed or amended [place] Advance and Rescinded Directives. The entries below indicate that a directive exists for the patient, but an actual copy is not included with this document. The data comes from all [place] facilities. Date Advance Directives Provider Source September 26, 2014 ADVANCE DIRECTIVE DISCUSSION GRACIELA YUSUF RA Artie [facility] Apr 24, 2014 ADVANCE DIRECTIVE DISCUSSION GRACIELA YUSUF RA Artie [facility] Jan 01, 2014 ADVANCE DIRECTIVE DISCUSSION DAVID RODRIGUEZ [facility] September 28, 2013 ADVANCE DIRECTIVE DISCUSSION AVABLESSINGSHERIDANCHRISTIAN Simons [facility] Aug 23, 2013 ADVANCE DIRECTIVE DISCUSSION WILLIAM ENG [facility] Encounter Notes: All associated encounter notes This section contains the clinical notes associated to the Encounter. Date/Time Encounter Note(s) Provider Source October 02, 2024 08:50 AM CHIROPRACTIC NOTE: LOCAL TITLE: CHIROPRACTIC FOLLOW UP NOTE PB STANDARD TITLE: CHIROPRACTIC NOTE DATE OF NOTE: OCTOBER 02, 2024@08:50 ENTRY DATE: OCTOBER 02, 2024@08:50:47 AUTHOR: ZOË CARUSO COSIGNER: URGENCY: STATUS: COMPLETED CHIROPRACTIC FOLLOW-UP VISIT Patient's language preference for health information: Romansh Other Communication Methods Needed: SUBJECTIVE: The [place] is a 68 year old MALE being seen in the Chiropractic clinic for follow-up visit. The [place] is returning to the chiropractic clinic due to the redevelopment of his neck and back over the past 1-2 months. He describes his lower back pain as sharp. Today, the rates his pain level as a 5/10. PAST MEDICAL HISTORY: see problem list SOCIO-ECONOMIC [...] restricted in all planes of motion. The [place] experience mild pain with the restricted AROM. LUMBAR/THORACIC SPINE: [...] History: wants to see chiro here at [place] Date Reported: MAY 03, 2023 Report: Lumbar [...] with associated myofascial pain. PLAN: This is a follow up treatment for the . We will follow up with the in two weeks to assess his progress and need for additional treatment. Prognosis: Fair Today's treatment of the consisted [...] exercise program and to commit to a mcc exercise plan. /stiven/ Zoë Caruso [place] Signed: 10/02/2024 09:00 ZOË CARUSO [facility] ANGY
--- OUTSIDE RECORDS SUMMARY | 2024-10-15 06:45 | XMS_ITS ---
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 Name Role Phone AARON HOOKS Primary Care [...] Summers's Name Patient's Relationship to Policy Summers [facility] (WNR) MEDICARE ADVANTAGE [facility] (WNR) May 16, 2023 [id number] ERICKA CHANDLER PATIENT AARP [facility] (WNR) MEDICARE ADVANTAGE [facility] (WNR) May 16, 2022 [id number] ERICKA CHANDLER PATIENT CARE IMPROVE PLUS [facility] (WNR) MEDICARE ADVANTAGE [facility] (WNR) May 16, 2015 [id number] [facility]IC[facility] ADVANTAGE [facility] (WNR) Jun 16, 2019 [id number] [phone] ERICKA CHANDLER [facility] (WNR) MEDICARE ADVANTAGE [facility] (WNR) Jun 16, 2019 [id number] [id number] [id number] ERICKA CHANDLER PATIENT MEDICARE PART D (WNR) MEDICARE (M) PART D September 13, 2018 PART D [id number] [phone] ERICKA CHANDLER PATIENT MEDICARE PART D (WNR) MEDICARE (M) PART D September 13, 2018 PART D [id number] ERICKA CHANDLER PATIENT MEDICARE PART D (WNR) MEDICARE (M) PART D May 16, 2015 PART D [id number] ERICKA CHANDLER MEDICARE PART D (WNR) MEDICARE (M) PART D May 16, 2015 PART D [id number] ERICKA CHANDLER MEDICARE PART D (WNR) MEDICARE (M) PART D May 16, 2015 PART D [id number] ERICKA CHANDLER [facility] (WNR) MEDICARE ADVANTAGE [facility] (WNR) Feb 13, 2021 [id number] ERICKA CHANDLER [facility] (WNR) MEDICARE ADVANTAGE [facility] (WNR) Feb 13, 2021 [id number] ERICKA CHANDLER PATIENT Selected Encounter This section includes the information on record at [place] for the Encounter. Date/Time Encounter Type Encounter Description Reason Pro vider Source Oct 15, 2024 11:45 AM Outpatient Encounter ADMIN PAT ACTIVTIES (MASNONCT) [...] 20 appointments. The data comes from all [place] treatment [facility]. Appointment Date/Time Appointment Type Appointme nt Facility Name Oct 16, 2024 08:30 AM AMBULATORY - MEDICINE [facility] [place] [facility] Oct 16, 2024 08:32 AM [place] [facility] Oct 16, 2024 11:40 AM [place]IC[place] [facility] Nov 07, 2024 01:40 PM [place] [facility] Nov 07, 2024 02:00 PM [place] [place] [facility] Nov 07, 2024 02:01 PM [facility] [place] [facility] Nov 19, 2024 02:00 PM AM[place]ORY [place] [facility] Nov 19, 2024 02:02 PM [place] [facility] Nov 27, 2024 01:40 PM [place] [facility] Dec 11, 2024 09:20 AM [place] [facility] Dec 25, 2024 09:20 AM [place] [facility] Jan 08, 2025 09:20 AM [place] [facility] Jan 22, 2025 09:20 AM AM[facility]ORY - MEDICINE [facility] Active, Pending, and Scheduled Orders This section includes a listing of several types of active, pending, and scheduled orders, including clinic medications orders, diagnostic test orders, procedure orders and consult orders; where the start date of the order is 45 days before the date of the Encounter or 45 days after the date of theEncounter. The data comes from all [facility]. Test Date/Time Test Type Test Details Facility Name October 04, 2024 12:00 AM Laboratory - Chemistry Order OCCULT BLOOD FIT X1 SCREEN (MFP ONLY) STOOL FECES [facility] Oct 31, 2024 12:00 AM Laboratory - Chemistry Order HGA1C BLOOD [facility] Oct 31, 2024 12:00 AM Laboratory - Chemistry Order CHOLESTEROL PANEL (PB) GREEN LI/HEP BLD/PLAS PLASMA [facility] Oct 31, 2024 12:00 AM Laboratory - Chemistry Order CBC BLOOD [facility] Oct 31, 2024 12:00 AM Laboratory - Chemistry Order COMPREHENSIVE METABOLIC PANEL GREEN LI/HEP BLD/PLAS PLAS[facility] [place] [facility] Lab Results: +/- 30 days of the encounter This section includes the Chemistry and Hematology Lab Results on record with [place] for the patient. Radiology Reports and Pathology Reports are provided separately, in subsequent sections. Lab Results This section contains the Chemistry/Hematology Results that were resulted 30 days before or 30 daysafter the date of the Encounter. Date/Time Source Result Type Result - Unit Interpretation Reference Range Specimen Type Comment September 25, 2024 10:28 AM [facility] DIRECT LDL (MA-PB) PLASMA Specimen Type: PLASMA No comment entered. Ordering Provider: TY PAULSON Report Released Date/Time: May 02, 2024 11:43 AM Reporting Lab: [place] [facility] [address] [place] [address] Performing Lab: [place] [facility] [address] [place] [address] DIRECT LDL 9.0 mg/dL 0-99.9 September 25, 2024 10:28 AM [facility] CHOLESTEROL PANEL (PB) PLASMA Specimen Type: P LASMA No comment entered. Ordering Provider: TY PAULSON Report Released Date/Time: May 02, 2024 11:43 AM Reporting Lab: [place] [facility] [address] [place] [address] Performing Lab: [place] [facility] [address] [place] [address] CHOLESTEROL 69 mg/dL 0-200 TRIGLYCERIDE 119 mg/dL 0-150 CALCULATED LDL 3.2 mg/dL HDL(New) 42.0 mg/dL H >40 HDL % OF TOTAL CHOLESTEROL (PB) 60.9 >25 September 25, 2024 10:28 AM [facility] VITAMIN D, 25-HYDROXY SERUM Specimen Type: SE RUM No comment entered. Ordering Provider: TY PAULSON Report Released Date/Time: May 02, 2024 11:43 AM Reporting Lab: [place] [facility] [address] [place] [address] Performing Lab: [place] [facility] [address] [place] [address] VITAMIN D, 25-HYDROXY 55.1 ng/mL 30-96 September 25, 2024 10:28 AM [facility] B12 SERUM Specimen Type: SERUM No comment entered. Ordering Provider: TY PAULSON Report Released Date/Time: May 02, 2024 11:43 AM Reporting Lab: [place] [facility] [address] [place] [address] Performing Lab: [place] [facility] [address] [place] [address] B12 403 pg/mL 213-816 September 25, 2024 10:28 AM [facility] COMPREHENSIVE METABOLIC PANEL PLASMA Specimen Type: PLASMA No comment entered. Ordering Provider: TY PAULSON Report Released Date/Time: May 02, 2024 11:43 AM Reporting Lab: [place] [facility] [address] [place] [address] Performing Lab: [place] [facility] [address] [place] [address] CREATININE 0.99 mg/dL 0.7-1.3 UREA NITROGEN 20 [...] 2020) 82 September 25, 2024 10:28 AM [facility] HGA1C BLOOD Specimen Type: BLOOD No comment entered. Ordering Provider: TY PAULSON Report Released Date/Time: May 02, 2024 11:43 AM Reporting Lab: [place] [facility] [address] [place] [address] Performing Lab: [place] [facility] [address] [place] [address] HGA1C 5.8 4.0-6.0 September 25, 2024 10:28 AM [facility] FOLATE (PB) SERUM Specimen Typ e: SERUM No comment entered. Ordering Provider: TY PAULSON Report Released Date/Time: May 02, 2024 11:43 AM Reporting Lab: [place] [facility] [address] [place] [address] Performing Lab: [place] [facility] [address] [place] [address] FOLATE (PB) 15.7 ng/mL -September 25, 2024 10:28 AM [facility] CBC BLOOD Specimen Type: BLOOD No comment entered. Ordering Provider: TY PAULSON Report Released Date/Time: May 02, 2024 11:43 AM Reporting Lab: [place] [facility] [address] [place] [address] Performing Lab: [place] [facility] [address] [place] [address] WBC 7.5 10*3/uL 3.6-11.2 RBC 4.90 10*6/uL [...] and tobacco- related health factors from the [place] facility where the Encounter took place. Current Smoking Status This section includes the most current smoking, or tobacco-related health factor, from the [place] facility where the Encounter took place. Date/Time Current Smoking Status Comment Facil ity May 03, 2023 01:16 PM VA-TOBACCO FORMER USER [facility] Tobacco Use History This section includes a history of the smoking, or tobacco-related health factors, that were collected on or before the date of the Encounter. The data comes from the [place] facility where the Encounter took place. Date/Time Smoking Status/Tobacco Use Comment F acility May 03, 2023 01:16 PM AR-TOBACCO QUIT 15 YRS OR MORE [facility] Advance Directives: All historical and current Section Date Range: From patient's date of to the date document was created. This section includes ALL of a patient's completed or amended [place] Advance and Rescinded Directives. The entries below indicate that a directive exists for the patient, but an actual copy is not included with this document. The data comes from all [place] facilities. Date Advance Directives Provider Source September 26, 2014 ADVANCE DIRECTIVE DISCUSSION GRACIELA YUSUF RA [facility] Apr 24, 2014 ADVANCE DIRECTIVE DISCUSSION GRACIELA YUSUF RA [facility] Jan 01, 2014 ADVANCE DIRECTIVE DISCUSSION DAVID RODRIGUEZ [facility] September 28, 2013 ADVANCE DIRECTIVE DISCUSSION LENNY MACHUCA [facility] Aug 23, 2013 ADVANCE DIRECTIVE DISCUSSION WILLIAM ENG [facility] Radiology Reports: +/- 30 days of the encounter Radiology Reports For cases when an order for radiology services may have been completed prior to the date of the Encounter, the report list includes the Radiology Reports that were completed up to 30 days before dateof the Encounter. For cases when an order for radiology services may have been completed after the date of the Encounter, the report list also includes the Radiology Reports that were completed up to30 days after date of the Encounter. The data comes from all [place] treatment facilities. Date/Time Radiology Report Provider Source Nov 07, 2024 03:35 PM OBSTRUCTIVE SERIES : ERICKA CHANDLER LOLY [id number] -[id number] M Exm Date: NOV 07, 2024@15:35 Req Phys: MELONY FIELDS Pat Loc: [facility] PCP (Req'g L Img Loc: PB-XRAY [place] Service: [place] [address] (Case [id number] COMPLETE) OBSTRUCTIVE SERIES (RAD Detailed) CPT:58230 Reason for Study: abdomnal pain Clinical History: bm normal daily per patient left lower abd Report Status: Verified Date Reported: NOV 07, 2024 Date Verified: NOV 07, 2024 Animal Care Service Worker E-Sig: Report: Multiple views of the abdomen and a single PA view of the chest reveal a few loops of gas-filled, but not distended, large and small bowel in a nonspecific pattern, without evidence of bowel obstruction. There is no appreciable ascites or pneumoperitoneum. There is no identified urinary tract stone. There is no infiltrate, effusion or other acute intrathoracic process. Heart size is normal. There are wire sutures in the sternum. Impression: Somewhat excessive small bowel gas in a nonspecific pattern not suggesting ileus or obstruction at this time Primary Interpreting Staff: JACINTA WAGONER, RADIOLOGIST (Animal Care Service Worker, no e-sig) /JACINTA Roy [place] [facility] Encounter Notes: All associated encounter notes This section contains the clinical notes associated to the Encounter. Date/Time Encounter Note(s) Provider Source Oct 15, 2024 11:45 AM GENERAL MEDICINE N OTE: LOCAL TITLE: General Note PB STANDARD TITLE: GENERAL MEDICINE NOTE DATE OF NOTE: OCT 15, 2024@11:45 ENTRY DATE: OCT 15, 2024@11:45:11 AUTHOR: YOUNG WALL EXP COSIGNER: URGENCY: STATUS: COMPLETED Confirmed audio appt with the . /stiven/ NEDA LAI [place] [facility] Signed: 10/15/2024 11:46 YOUNG WALL [facility]
--- OUTSIDE RECORDS SUMMARY | 2024-10-16 03:32 | XMS_ITS | Encounter Summary ---
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 Name Role Phone AARON HOOKS Primary Care Provider Unavailab RAJAN Camargo Primary Care Provider Unavailabl MAXIME De La Cruz Primary Care Provider Unavaila MELONY Sewell Primary Care Provider Unavailabl e ANN WEST Primary Care Provider Unavailsusanne BEEBE, ESTRELLA Unavailable [...] Summers's Name Patient's Relationship to Policy Summers [facility] (WNR) MEDICARE ADVANTAGE [facility] (WNR) May 16, 2023 [id number] [phone] ERICKA CHANDLER PATIENT AARP [facility] (WNR) MEDICARE ADVANTAGE [facility] (WNR) May 16, 2022 [id number] GERALDINE ERICKA PATIENT CARE IMPROVE PLUS [facility] (WNR) MEDICARE ADVANTAGE [facility] (WNR) May 16, 2015 [id number] ERICKA CHANDLER [facility] (WNR) MEDICARE ADVANTAGE [facility] (WNR) Jun 16, 2019 [id number] ERICKA CHANDLER (WNR) MEDICARE ADVANTAGE [facility] (WNR) Jun 16, 2019 [id number] ERICKA CHANDLER PATIENT MEDICARE PART D (WNR) MEDICARE (M) PART D September 13, 2018 PART D [id number] [phone] ERICKA CHANDLER PATIENT MEDICARE PART D (WNR) MEDICARE (M) PART D September 13, 2018 PART D [id number] ERICKA CHANDLER PATIENT MEDICARE PART D (WNR) MEDICARE (M) PART D May 16, 2015 PART D [id number] ERICKA CHANDLER MEDICARE PART D (WNR) MEDICARE (M) PART D May 16, 2015 PART D [id number] ERICKA CHANDLER MEDICARE PART D (WNR) MEDICARE (M) PART D May 16, 2015 PART D [id number] ERICKA CHANDLER [facility] (WNR) MEDICARE ADVANTAGE [facility] (WNR) Feb 13, 2021 [id number] ERICKA CHANDLER [facility] (WNR) MEDICARE ADVANTAGE [facility] (WNR) Feb 13, 2021 [id number] ERICKA CHANDLER PATIENT Selected Encounter This section includes the information on record at [place] for the Encounter. Date/Time Encounter Type Encounter Description Reason Provider Source Oct 16, 2024 08:32 AM AYAN TEST PURE TONE AUDIOLOGY ICD-10-CM H93.13 Tinnitus, bilateral JONATHAN TRAN RA IHE Encounter Template Text not used by [place] Assessments - Encounter Diagnoses This section includes the primary and secondary diagnoses documented for the Encounter. Date/Time Primary/Secondary Diagnosis Diagnosis Name Provider Source Oct 16, 2024 08:56 AM PRIMARY Tinnitus, bilateral JONATHAN TRAN RA [place] [facility] Oct 16, 2024 08:56 AM SECONDARY Sensorineural hearing loss, bilateral GRAVES,ALEXAAGUSTIN RA A [place] [facility] Plan of Treatment: Future Appointments (+ 6 months) and Future Tests (+/- 45 days) The Plan of Treatment section includes future care activities for the patient [facility] [place] [facility] This section includes future appointments and future orders which are active, pending or scheduled. Future Appointments This section includes appointments that were scheduled to occur 6 months from the date of the Encounter, up to a maximum of 20 appointments. The data comes from all [facility]. Appointment Date/Time Appointment Type Appointme nt Facility Name Nov 07, 2024 01:40 PM AMBULATORY - MEDICINE [facility] Nov 07, 2024 02:00 PM AMBULATORY - MEDICINE [facility] Nov 07, 2024 02:01 PM AMBULATORY - MEDICINE [facility] Nov 19, 2024 02:00 PM AMBULATORY - MEDICINE [facility] Nov 19, 2024 02:02 PM [facility] [facility] Nov 27, 2024 01:40 PM AMBULATORY - MEDICINE [facility] Dec 11, 2024 09:20 AM AMBULATORY - MEDICINE [facility] Dec 25, 2024 09:20 AM AMBULATORY - MEDICINE [facility] Jan 08, 2025 09:20 AM AMBULATORY - MEDICINE [facility] Jan 22, 2025 09:20 AM AMBULATORY - MEDICINE [facility] Active, Pending, and Scheduled Orders This section includes a listing of several types of active, pending, and scheduled orders, including clinic medications orders, diagnostic test orders, procedure orders and consult orders; where the start date of the order is 45 days before the date of the Encounter or 45 days after the date of theEncounter. The data comes from all [facility]. Test Date/Time Test Type Test Details Facility Name October 04, 2024 12:00 AM Laboratory - Chemistry Order OCCULT BLOOD FIT X1 SCREEN (MFP ONLY) STOOL FECES [facility] Oct 31, 2024 12:00 AM Laboratory - Chemistry Order HGA1C BLOOD [facility] Oct 31, 2024 12:00 AM Laboratory - Chemistry Order CHOLESTEROL PANEL (PB) GREEN LI/HEP BLD/PLAS PLASMA [facility] Oct 31, 2024 12:00 AM Laboratory - Chemistry Order CBC BLOOD [facility] Oct 31, 2024 12:00 AM Laboratory - Chemistry Order COMPREHENSIVE METABOLIC PANEL GREEN LI/HEP BLD/PLAS PLASMA SP [facility] Lab Results: +/- 30 days of the encounter This section includes the Chemistry and Hematology Lab Results on record with [place] for the patient. Radiology Reports and Pathology Reports are provided separately, in subsequent sections. Lab Results This section contains the Chemistry/Hematology Results that were resulted 30 days before or 30 daysafter the date of the Encounter. Date/Time Source Result Type Result - Unit Interpretation Reference Range Specimen Type Comment September 25, 2024 10:28 AM [facility] DIRECT LDL (MA-PB) PLASMA Specimen Type: PLASMA No comment entered. Ordering Provider: TY PAULSON Report Released Date/Time: May 02, 2024 11:43 AM Reporting Lab: [place] [facility] [address] [place] [address] Performing Lab: [place] [facility] [address] [place] [address] DIRECT LDL 9.0 mg/dL 0-99.9 September 25, 2024 10:28 AM [facility] CHOLESTEROL PANEL (PB) PLASMA Specimen Type: P LASMA No comment entered. Ordering Provider: TY PAULSON Report Released Date/Time: May 02, 2024 11:43 AM Reporting Lab: [place] [facility] [address] [place] [address] Performing Lab: [place] [facility] [address] [place] [address] CHOLESTEROL 69 mg/dL 0-200 TRIGLYCERIDE 119 mg/dL 0-150 CALCULATED LDL 3.2 mg/dL HDL(New) 42.0 mg/dL H >40 HDL % OF TOTAL CHOLESTEROL (PB) 60.9 >25 September 25, 2024 10:28 AM [facility] VITAMIN D, 25-HYDROXY SERUM Specimen Type: SE RUM No comment entered. Ordering Provider: TY PAULSON Report Released Date/Time: May 02, 2024 11:43 AM Reporting Lab: [place] [facility] [address] [place] [address] Performing Lab: [place] [facility] [address] [place] [address] VITAMIN D, 25-HYDROXY 55.1 ng/mL 30-96 September 25, 2024 10:28 AM [facility] COMPREHENSIVE METABOLIC PANEL PLASMA Specimen Type: PLASMA No comment entered. Ordering Provider: TY PAULSON Report Released Date/Time: May 02, 2024 11:43 AM Reporting Lab: [place] [facility] [address] [place] [address] Performing Lab: [place] [facility] [address] [place] [address] CREATININE 0.99 mg/dL 0.7-1.3 UREA NITROGEN 20 [...] 2020) 82 September 25, 2024 10:28 AM [facility] B12 SERUM Specimen Type: SERUM No comment entered. Ordering Provider: TY PAULSON Report Released Date/Time: May 02, 2024 11:43 AM Reporting Lab: [place] [facility] [address] [place] [address] Performing Lab: [place] [facility] [address] [place] [address] B12 403 pg/mL 213-816 September 25, 2024 10:28 AM [facility] HGA1C BLOOD Specimen Type: BLOOD No comment entered. Ordering Provider: TY PAULSON Report Released Date/Time: May 02, 2024 11:43 AM Reporting Lab: [place] [facility] [address] [place] [address] Performing Lab: [place] [facility] [address] [place] [address] HGA1C 5.8 4.0-6.0 September 25, 2024 10:28 AM [facility] FOLATE (PB) SERUM Specimen Typ e: SERUM No comment entered. Ordering Provider: TY PAULSON Report Released Date/Time: May 02, 2024 11:43 AM Reporting Lab: [place] [facility] [address] [place] [address] Performing Lab: [place] [facility] [address] [place] [address] FOLATE (PB) 15.7 ng/mL -September 25, 2024 10:28 AM [facility] CBC BLOOD Specimen Type: BLOOD No comment entered. Ordering Provider: TY PAULSON Report Released Date/Time: May 02, 2024 11:43 AM Reporting Lab: [place] [facility] [address] [place] [address] Performing Lab: [place] [facility] [address] [place] [address] WBC 7.5 10*3/uL 3.6-11.2 RBC 4.90 10*6/uL [...] AUTO ABS 0.09 10*3/uL H 0. 00-0.05 Advance Directives: All historical and current Section Date Range: From patient's date of to the date document was created. This section includes ALL of a patient's completed or amended [place] Advance and Rescinded Directives. The entries below indicate that a directive exists for the patient, but an actual copy is not included with this document. The data comes from all [place] facilities. Date Advance Directives Provider Source September 26, 2014 ADVANCE DIRECTIVE DISCUSSION GRACIELA YUSUF RA [facility] Apr 24, 2014 ADVANCE DIRECTIVE DISCUSSION GRACIELA YUSUF RA [facility] Jan 01, 2014 ADVANCE DIRECTIVE DISCUSSION DAVID RODRIGUEZ [facility] September 28, 2013 ADVANCE DIRECTIVE DISCUSSION LENNY MACHUCA [facility] Aug 23, 2013 ADVANCE DIRECTIVE DISCUSSION WILLIAM ENG [facility] Radiology Reports: +/- 30 days of the [...] the Encounter. The data comes from all [place] treatment facilities. 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 Date/Time Encounter Note(s) Provider Source Oct 16, 2024 07:12 AM AUDIOLOGY NOTE: LOCAL TITLE: HEARING CLINIC STANDARD TITLE: AUDIOLOGY NOTE DATE OF NOTE: OCT 16, 2024@07:12 ENTRY DATE: OCT 16, 2024@07:12:55 AUTHOR: SELENE TRAN COSIGNER: URGENCY: STATUS: COMPLETED HEARING CLINIC Has ADDENDA Diagnosis: Sensorineural Hearing Loss, Bilateral and Tinnitus, Bilateral Treatment: Hearing Evaluation Time spent with Caliente: 60 minutes Caliente seen for an audiogram via Audio Telehealth and verbally consented to the Telehealth modality. Multi-factor personally identifiable information of the was obtained verbally (full name and date of ). Caliente accompanied by: none Patient site: [facility] AUDIOLOGIC HISTORY: Patient seen today for an updated hearing evaluation. - Ear surgery: left cut nerve for Meniere's - Aural Pain/Pressure/Drainage: no - Tinnitus: bilateral (left worse)/intermittent - Noise Exposure: yes - Vertigo: intermittent related to unresolved Meniere's disease CURRENT HEARING DEVICES: 2015 ITCs, not in use/did not like AUDIOMETRIC EXAM: Otoscopy was performed by collaboration of telehealth clinical household appliances service technician and provider via telehealth technology/video otoscope which revealed: Right: unremarkable Left: unremarkable Tympanograms: Right: consistent with normal middle ear function Left: consistent with normal middle ear function Acoustic Reflex Thresholds: not performed due to time constraints Pure-Tone Air and Bone-Conduction Audiometric Testing revealed: Right: slight to moderately-severe sensorineural hearing loss Left: mild to profound sensorineural hearing loss Speech Recognition Threshold testing yielded: Right: 35 dBHL Left: 40 dBHL Word Recognition testing yielded: Right: 100% @ 75 dBHL Left: 100% @ 80 dBHL Word scoring may be impacted by quality of audio through telehealth medium. Test Reliability: Good PROVIDER COMMENTS/RECOMMENDATIONS: Hearing test results were reviewed with patient. Patient is a hearing aid candidate. Patient was counseled regarding realistic expectations for hearing aids, more specifically that hearing aids can make sounds louder but may not make speech more clear or understandable. Hearing conservation techniques were discussed and recommended. Hearing aid options were discussed, and the following devices ordered: [employer] [id number] CARIN - M QUALITY ASSURANCE ANALYST 6.0 - SIZE 1 - VENTED DOME - SMALL - CERUSTOP Phone Connectivity: PLAN: 1) Return to clinic in four weeks for 60 minute hearing aid fitting. 2) Recommend hearing evaluation annually or prn. Caliente expressed understanding and is in agreement with the plan. /stiven/ Tawnya Collinshing [facility] Signed: 10/16/2024 08:58 10/16/2024 ADDENDUM STATUS: COMPLETED Negative pure-tone Ayan. /stiven/ Tawnya Collinshing [facility] Signed: 10/16/2024 09:08 SELENE TRAN [facility]
--- OUTSIDE RECORDS SUMMARY | 2024-10-16 06:40 | XMS_ITS | Encounter Summary ---
Author Name [facility] [place] [facility] [place] Address [address] [place] [address] Care Team Providers Care Production Support Engineer Name Role Phone RAJAN PRUETT Primary Care [...] Summers's Name Patient's Relationship to Policy Summers [facility] (WNR) MEDICARE ADVANTAGE [facility] (WNR) May 16, 2023 [id number] [phone] ERICKA CHANDLER PATIENT [facility] (WNR) MEDICARE ADVANTAGE [facility] (WNR) May 16, 2022 [id number] [phone] ERICKA CHANDLER PATIENT CARE IMPROVE PLUS [facility] (WNR) MEDICARE ADVANTAGE [facility] (WNR) May 16, 2015 [id number] [facility] (WNR) Jun 16, 2019 [id number] ERICKA CHANDLER [facility] (WNR) MEDICARE ADVANTAGE [facility] (WNR) Jun 16, 2019 [id number] [phone] ERICKA CHANDLER PATIENT MEDICARE PART D (WNR) MEDICARE (M) PART D September 13, 2018 PART D [id number] ERICKA CHANDLER PATIENT MEDICARE PART D (WNR) MEDICARE (M) PART D September 13, 2018 PART D [id number] ERICKA CHANDLER PATIENT MEDICARE PART D (WNR) MEDICARE (M) PART D May 16, 2015 PART D [id number] [phone] ERICKA CHANDLER MEDICARE PART D (WNR) MEDICARE (M) PART D May 16, 2015 PART D [id number] ERICKA CHANDLER MEDICARE PART D (WNR) MEDICARE (M) PART D May 16, 2015 PART D [id number] [phone] ERICKA CHANDLER [facility] (WNR) MEDICARE ADVANTAGE [facility] (WNR) Feb 13, 2021 [id number] ERICKA CHANDLER [facility] (WNR) MEDICARE [facility] (WNR) Feb 13, 2021 [id number] [phone] ERICKA CHANDLER PATIENT Selected Encounter This section includes the information on record at [place] for the Encounter. Date/Time Encounter Type Encounter Description Reason Provider Source Oct 16, 2024 11:40 AM CHIROPRACT MANJ 3-4 [facility] EMBROIDER[facility] ICD-10-CM M99.01 Segmental and somatic dysfunction of cervical region [place] Encounter Template Text not used by [place] Assessments - Encounter Diagnoses This section includes the primary and secondary diagnoses documented for the Encounter. Date/Time Primary/Secondary Diagnosis Diagnosis Name Provider Source Oct 16, 2024 11:24 AM PRIMARY Segmental and somatic dysfunction of cervical region SOFÍA,ZOËSHERIDAN RIVAS [place] [facility] Oct 16, 2024 11:24 AM SECONDARY Cervicalgia [place] [facility] Oct 16, 2024 11:24 AM SECONDARY Oth intvrt disc degen, lumbosacr w discog bck & lw extrm pn [place] [facility] Oct 16, 2024 11:24 AM SECONDARY Pain in thoracic spine ZO[place] GORE [facility] Oct 16, 2024 11:24 AM SECONDARY Segmental and somatic dysfunction of lumbar region [place] [facility] Oct 16, 2024 11:24 AM SECONDARY Segmental and somatic dysfunction of pelvic region [place] [facility] Oct 16, 2024 11:24 AM SECONDARY Segmental and somatic dysfunction of thoracic region [place] G[place] [facility] Plan of Treatment: Future Appointments (+ 6 months) and Future Tests (+/- 45 days) The Plan of Treatment section includes future care activities for the patient from all [place] [facility] This section includes future appointments and future orders which are active, pending or scheduled. Future Appointments This section includes appointments that were scheduled to occur 6 months from the date of the Encounter, up to a maximum of 20 appointments. The data comes from all [place] treatment facilities. Appointment Date/Time Appointment Type Appointme nt Facility Name Nov 07, 2024 01:40 PM AMBULATORY - MEDICINE [facility] Nov 07, 2024 02:00 PM AMBULATORY - MEDICINE [facility] Nov 07, 2024 02:01 PM AMBULATORY - MEDICINE [facility] Nov 19, 2024 02:00 PM AMBULATORY - MEDICINE [facility] Nov 19, 2024 02:02 PM AM[place]UL[place]ORY - [place]ICINE [place] [facility] Nov 27, 2024 01:40 PM AMBULATORY - MEDICINE [facility] Dec 11, 2024 09:20 AM AMBULATORY - MEDICINE [facility] Dec 25, 2024 09:20 AM AMBULATORY - MEDICINE [facility] Jan 08, 2025 09:20 AM AMBULATORY - MEDICINE [facility] Jan 22, 2025 09:20 AM AMBULATORY - MEDICINE [facility] Active, Pending, and Scheduled Orders This section includes a listing of several types of active, pending, and scheduled orders, including clinic medications orders, diagnostic test orders, procedure orders and consult orders; where the start date of the order is 45 days before the date of the Encounter or 45 days after the date of theEncounter. The data comes from all [place] treatment facilities. Test Date/Time Test Type Test Details Facility Name October 04, 2024 12:00 AM Laboratory - Chemistry Order OCCULT BLOOD FIT X1 SCREEN ([facility] ONLY) STOOL FECES [facility] Oct 31, 2024 12:00 AM Laboratory - Chemistry Order CHOLESTEROL PANEL (PB) GREEN LI/HEP BLD/PLAS PLASMA [facility] Oct 31, 2024 12:00 AM Laboratory - Chemistry Order HGA1C BLOOD [facility] Oct 31, 2024 12:00 AM Laboratory - Chemistry Order CBC BLOOD [facility] Oct 31, 2024 12:00 AM Laboratory - Chemistry Order COMPREHENSIVE METABOLIC PANEL GREEN LI/HEP BLD/PLAS PLASMA [facility] Lab Results: +/- 30 days of the encounter This section includes the Chemistry and Hematology Lab Results on record with [place] for the patient. Radiology Reports and Pathology Reports are provided separately, in subsequent sections. Lab Results This section contains the Chemistry/Hematology Results that were resulted 30 days before or 30 daysafter the date of the Encounter. Date/Time Source Result Type Result - Unit Interpretation Reference Range Specimen Type Comment September 25, 2024 10:28 AM [facility] DIRECT LDL (MA-PB) PLASMA Specimen Type: PLASMA No comment entered. Ordering Provider: TY PAULSON Report Released Date/Time: May 02, 2024 11:43 AM Reporting Lab: [place] [facility] [address] [place] [address] Performing Lab: [place] [facility] [address] [place] [address] DIRECT LDL 9.0 mg/dL 0-99.9 September 25, 2024 10:28 AM [facility] CHOLESTEROL PANEL (PB) PLASMA Specimen Type: P LASMA No comment entered. Ordering Provider: TY PAULSON Report Released Date/Time: May 02, 2024 11:43 AM Reporting Lab: [place] [facility] [address] [place] [address] Performing Lab: [place] [facility] [address] [place] [address] CHOLESTEROL 69 mg/dL 0-200 TRIGLYCERIDE 119 mg/dL 0-150 CALCULATED LDL 3.2 mg/dL HDL(New) 42.0 mg/dL H >40 HDL % OF TOTAL CHOLESTEROL (PB) 60.9 >25 September 25, 2024 10:28 AM [facility] VITAMIN D, 25-HYDROXY SERUM Specimen Type: SE RUM No comment entered. Ordering Provider: TY PAULSON Report Released Date/Time: May 02, 2024 11:43 AM Reporting Lab: [place] [facility] [address] [place] [address] Performing Lab: [place] [facility] [address] [place] [address] VITAMIN D, 25-HYDROXY 55.1 ng/mL 30-96 September 25, 2024 10:28 AM [facility] B12 SERUM Specimen Type: SERUM No comment entered. Ordering Provider: TY PAULSON Report Released Date/Time: May 02, 2024 11:43 AM Reporting Lab: [place] [facility] [address] [place] [address] Performing Lab: [place] [facility] [address] [place] [address] B12 403 pg/mL 213-816 September 25, 2024 10:28 AM [facility] COMPREHENSIVE METABOLIC PANEL PLASMA Specimen Type: PLASMA No comment entered. Ordering Provider: TY PAULSON Report Released Date/Time: May 02, 2024 11:43 AM Reporting Lab: [place] [facility] [address] [place] [address] Performing Lab: [place] [facility] [address] [place] [address] CREATININE 0.99 mg/dL 0.7-1.3 UREA NITROGEN 20 [...] 2020) 82 September 25, 2024 10:28 AM [facility] HGA1C BLOOD Specimen Type: BLOOD No comment entered. Ordering Provider: TY PAULSON Report Released Date/Time: May 02, 2024 11:43 AM Reporting Lab: [place] [facility] [address] [place] [address] Performing Lab: [place] [facility] [address] [place] [address] HGA1C 5.8 4.0-6.0 September 25, 2024 10:28 AM [facility] FOLATE (PB) SERUM Specimen Typ e: SERUM No comment entered. Ordering Provider: TY PAULSON Report Released Date/Time: May 02, 2024 11:43 AM Reporting Lab: [place] [facility] [address] [place] [address] Performing Lab: [place] [facility] [address] [place] [address] FOLATE (PB) 15.7 ng/mL 7-20 September 25, 2024 10:28 AM [facility] CBC BLOOD Specimen Type: BLOOD No comment entered. Ordering Provider: TY PAULSON Report Released Date/Time: May 02, 2024 11:43 AM Reporting Lab: [place] [facility] [address] [place] [address] Performing Lab: [place] [facility] [address] [place] [address] WBC 7.5 10*3/uL 3.6-11.2 RBC 4.90 10*6/uL [...] and tobacco- related health factors from the [place] facility where the Encounter took place. Current Smoking Status This section includes the most current smoking, or tobacco-related health factor, from the [place] facility where the Encounter took place. Date/Time Current Smoking Status Comment Facil ity May 03, 2023 01:16 PM [place]-TOBACCO FORMER USER [facility] Tobacco Use History This section includes a history of the smoking, or tobacco-related health factors, that were collected on or before the date of the Encounter. The data comes from the [place] facility where the Encounter took place. Date/Time Smoking Status/Tobacco Use Comment F acility May 03, 2023 01:16 PM [place]-TOBACCO QUIT 15 YRS OR MORE [facility] Advance Directives: All historical and current Section Date Range: From patient's date of to the date document was created. This section includes ALL of a patient's completed or amended [place] Advance and Rescinded Directives. The entries below indicate that a directive exists for the patient, but an actual copy is not included with this document. The data comes from all [place] facilities. Date Advance Directives Provider Source September 26, 2014 ADVANCE DIRECTIVE DISCUSSION GRACIELA YUSUF RA [facility] Apr 24, 2014 ADVANCE DIRECTIVE DISCUSSION GRACIELA YUSUF RA [facility] Jan 01, 2014 ADVANCE DIRECTIVE DISCUSSION DAVID RODRIGUEZ [facility] September 28, 2013 ADVANCE DIRECTIVE DISCUSSION LENNY MACHUCA [facility] Aug 23, 2013 ADVANCE DIRECTIVE DISCUSSION WILLIAM ENG [facility] Radiology Reports: +/- 30 days of the [...] the Encounter. The data comes from all [place] treatment facilities. Date/Time Radiology Report Provider Source Nov 07, 2024 03:35 PM OBSTRUCTIVE SERIES : ERICKA CHANDLER [id number] -[id number] M Exm Date: NOV 07, 2024@15:35 Req Phys: MELONY FIELDS Pat Loc: [facility] PACT [facility] PCP (Req'g L Img Loc: PB-XRAY BRUIN Service: [place] [address] (Case [id number] COMPLETE) OBSTRUCTIVE SERIES (RAD Detailed) CPT:33240 Reason for Study: abdomnal pain Clinical History: bm normal daily per patient left lower abd Report Status: Verified Date Reported: NOV 07, 2024 Date Verified: NOV 07, 2024 Avionics Repair Technician E-Sig: Report: Multiple views of the abdomen [...] time Primary Interpreting Staff: JACINTA WAGONER, RADIOLOGIST (Avionics Repair Technician, no e-sig) /JACINTA Roy [facility] Encounter Notes: All associated encounter notes This section contains the clinical notes associated to the Encounter. Date/Time Encounter Note(s) Provider Source Oct 16, 2024 11:16 AM CHIROPRACTIC NOTE: LOCAL TITLE: CHIROPRACTIC FOLLOW UP NOTE PB STANDARD TITLE: CHIROPRACTIC NOTE DATE OF NOTE: OCT 16, 2024@11:16 ENTRY DATE: OCT 16, 2024@11:16:32 AUTHOR: ZOË GORE COSIGNER: URGENCY: STATUS: COMPLETED CHIROPRACTIC FOLLOW-UP VISIT Patient's language preference for health information: Belgian Other Communication Methods Needed: SUBJECTIVE: The Niland is a 68 year old MALE being seen in the Chiropractic clinic for follow-up visit. The Niland states his neck and back felt better for a short period of time, but the pain gradually returned. Today, the rates his pain level as a 2/10. PAST MEDICAL HISTORY: see problem list SOCIO-ECONOMIC [...] restricted in all planes of motion. The Niland experience mild pain with the restricted AROM. [...] History: wants to see chiro here at [facility] Date Reported: MAY 03, 2023 Report: Lumbar [...] a follow up treatment for the . Due to the persistent neck and back pain, we will follow up with the every two weeks for six treatments. Prognosis: [...] exercise program and to commit to a terminal system operator exercise plan. /stiven/ [facility] Signed: 10/16/2024 11:24 ZOË GORE
--- OUTSIDE RECORDS SUMMARY | 2024-10-22 04:45 | XMS_ITS | Encounter Summary ---
Author Name [facility] [place] [facility] [place] Address [address] [place] [id number] Care Team Providers Care It Intern Name Role Phone RAJAN PRUETT Primary Care [...] Summers's Name Patient's Relationship to Policy Summers [facility] (WNR) MEDICARE ADVANTAGE [facility] (WNR) May 16, 2023 [id number] ERICKA CHANDLER PATIENT [facility] (WNR) MEDICARE ADVANTAGE [facility] (WNR) May 16, 2022 [id number] ERICKA CHANDLER PATIENT CARE IMPROVE PLUS [facility] (WNR) MEDICARE ADVANTAGE [facility] (WNR) May 16, 2015 [id number]VANTAGE [facility] (WNR) Jun 16, 2019 [id number] [phone] ERICKA CHANDLER [facility] (WNR) MEDICARE ADVANTAGE [facility] (WNR) Jun 16, 2019 [id number] [phone] ERICKA CHANDLER PATIENT MEDICARE PART D (WNR) MEDICARE (M) PART D September 13, 2018 PART D [id number] ERCIKA CHANDLER PATIENT MEDICARE PART D (WNR) MEDICARE (M) PART D September 13, 2018 PART D [id number] ERICKA CHANDLER PATIENT MEDICARE PART D (WNR) MEDICARE (M) PART D May 16, 2015 PART D [id number] [phone] ERICKA CHANDLER MEDICARE PART D (WNR) MEDICARE (M) PART D May 16, 2015 PART D [id number] ERICKA CHANDLER MEDICARE PART D (WNR) MEDICARE (M) PART D May 16, 2015 PART D [id number] ERICKA CHANDLER [facility] (WNR) MEDICARE ADVANTAGE [facility] (WNR) Feb 13, 2021 [id number] ERICKA CHANDLER [facility] (WNR) MEDICARE ADVANTAGE [facility] (WNR) Feb 13, 2021 [id number] [phone] ERICKA CHANDLER PATIENT Selected Encounter This section includes the information on record at [place] for the Encounter. Date/Time Encounter Type Encounter Description Reason Pro vider Source Oct 22, 2024 09:45 AM Outpatient Encounter ADMIN PAT ACTIVTIES (MASNONCT) [...] 20 appointments. The data comes from all [place] treatment [facility]. Appointment Date/Time Appointment Type Appointme nt Facility Name Nov 07, 2024 01:40 PM AMBULATORY - MEDICINE [facility] Nov 07, 2024 02:00 PM AMBULATORY - MEDICINE [facility] Nov 07, 2024 02:01 PM AMBULATORY - MEDICINE [place] [facility] Nov 19, 2024 02:00 PM AMBULATORY - MEDICINE [facility] Nov 19, 2024 02:02 PM AMBUL[facility]ORY - [place]IC[place] [facility] Nov 27, 2024 01:40 PM AMBULATORY - MEDICINE [facility] Dec 11, 2024 09:20 AM AMBULATORY - MEDICINE [facility] Dec 25, 2024 09:20 AM AMBULATORY - MEDICINE [facility] Jan 08, 2025 09:20 AM AMBULATORY - MEDICINE [facility] Jan 22, 2025 09:20 AM AMBULATORY - MEDICINE [facility] Active, Pending, and Scheduled Orders This section includes a listing of several types of active, pending, and scheduled orders, including clinic medications orders, diagnostic test orders, procedure orders and consult orders; where the start date of the order is 45 days before the date of the Encounter or 45 days after the date of theEncounter. The data comes from all [facility]. Test Date/Time Test Type Test Details Facility Name October 04, 2024 12:00 AM Laboratory - Chemistry Order OCCULT BLOOD FIT X1 SCREEN (MFP ONLY) STOOL FECES [facility] Oct 31, 2024 12:00 AM Laboratory - Chemistry Order HGA1C BLOOD [facility] Oct 31, 2024 12:00 AM Laboratory - Chemistry Order CHOLESTEROL PANEL (PB) GREEN LI/HEP BLD/PLAS PLASMA [facility] Oct 31, 2024 12:00 AM Laboratory - Chemistry Order CBC BLOOD [facility] Oct 31, 2024 12:00 AM Laboratory - Chemistry Order COMPREHENSIVE METABOLIC PANEL GREEN LI/HEP BLD/PLAS PLASMA [facility] Lab Results: +/- 30 days of the encounter This section includes the Chemistry and Hematology Lab Results on record with [place] for the patient. Radiology Reports and Pathology Reports are provided separately, in subsequent sections. Lab Results This section contains the Chemistry/Hematology Results that were resulted 30 days before or 30 daysafter the date of the Encounter. Date/Time Source Result Type Result - Unit Interpretation Reference Range Specimen Type Comment September 25, 2024 10:[address] [facility] DIRECT LDL (MA-PB) PLASMA Specimen Type: PLASMA No comment entered. Ordering Provider: TY PAULSON Report Released Date/Time: May 02, 2024 11:43 AM Reporting Lab: [place] [facility] [address] [place] [address] Performing Lab: [place] [facility] [address] [place] [address] DIRECT LDL 9.0 mg/dL 0-99.9 September 25, 2024 10:[address] [facility] CHOLESTEROL PANEL (PB) PLASMA Specimen Type: P LASMA No comment entered. Ordering Provider: TY PAULSON Report Released Date/Time: May 02, 2024 11:43 AM Reporting Lab: [place] [facility] [address] [place] [address] Performing Lab: [place] [facility] [address] [place] [address] CHOLESTEROL 69 mg/dL 0-200 TRIGLYCERIDE 119 mg/dL 0-150 CALCULATED LDL 3.2 mg/dL HDL(New) 42.0 mg/dL H >40 HDL % OF TOTAL CHOLESTEROL (PB) 60.9 >25 September 25, 2024 10:[address] [facility] VITAMIN D, 25-HYDROXY SERUM Specimen Type: SE RUM No comment entered. Ordering Provider: TY PAULSON Report Released Date/Time: May 02, 2024 11:43 AM Reporting Lab: [place] [facility] [address] [place] [address] Performing Lab: [place] [facility] [address] [place] [address] VITAMIN D, 25-HYDROXY 55.1 ng/mL 30-96 September 25, 2024 10:[address] [facility] COMPREHENSIVE METABOLIC PANEL PLASMA Specimen Type: PLASMA No comment entered. Ordering Provider: TY PAULSON Report Released Date/Time: May 02, 2024 11:43 AM Reporting Lab: [place] [facility] [address] [place] [address] Performing Lab: [place] [facility] [address] [place] [address] CREATININE 0.99 mg/dL 0.7-1.3 UREA NITROGEN 20 [...] 2020) 82 September 25, 2024 10:[address] [facility] B12 SERUM Specimen Type: SERUM No comment entered. Ordering Provider: TY PAULSON Report Released Date/Time: May 02, 2024 11:43 AM Reporting Lab: [place] [facility] [address] [place] [address] Performing Lab: [place] [facility] [address] [place] [address] B12 403 pg/mL 213-816 September 25, 2024 10:[address] [facility] FOLATE (PB) SERUM Specimen Typ e: SERUM No comment entered. Ordering Provider: TY PAULSON Report Released Date/Time: May 02, 2024 11:43 AM Reporting Lab: [place] [facility] [address] [place] [address] Performing Lab: [place] [facility] [address] [place] [address] FOLATE (PB) 15.7 ng/mL 7-20 September 25, 2024 10:[address] [facility] HGA1C BLOOD Specimen Type: BLOOD No comment entered. Ordering Provider: TY PAULSON Report Released Date/Time: May 02, 2024 11:43 AM Reporting Lab: [place] [facility] [address] [place] [address] Performing Lab: [place] [facility] [address] [place] [address] HGA1C 5.8 4.0-6.0 September 25, 2024 10:[address] [facility] CBC BLOOD Specimen Type: BLOOD No comment entered. Ordering Provider: TY PAULSON Report Released Date/Time: May 02, 2024 11:43 AM Reporting Lab: [place] [facility] [address] [place] [address] Performing Lab: [place] [facility] [facility] [address] [place] [address] WBC 7.5 10*3/uL 3.6-11.2 RBC 4.90 10*6/uL [...] and tobacco- related health factors from the [place] facility where the Encounter took place. Current Smoking Status This section includes the most current smoking, or tobacco-related health factor, from the [place] facility where the Encounter took place. Date/Time Current Smoking Status Comment Facil ity May 03, 2023 01:16 PM VA-TOBACCO FORMER USER [facility] Tobacco Use History This section includes a history of the smoking, or tobacco-related health factors, that were collected on or before the date of the Encounter. The data comes from the [place] facility where the Encounter took place. Date/Time Smoking Status/Tobacco Use Comment F acility May 03, 2023 01:16 PM VA-TOBACCO QUIT 15 YRS OR MORE [facility] Advance Directives: All historical and current Section Date Range: From patient's date of to the date document was created. This section includes ALL of a patient's completed or amended [place] Advance and Rescinded Directives. The entries below indicate that a directive exists for the patient, but an actual copy is not included with this document. The data comes from all [place] facilities. Date Advance Directives Provider Source September 26, 2014 ADVANCE DIRECTIVE DISCUSSION GRACIELA YUSUF RA [facility] Apr 24, 2014 ADVANCE DIRECTIVE DISCUSSION GRACIELA YUSUF RA [facility] Jan 01, 2014 ADVANCE DIRECTIVE DISCUSSION DAVID RODRIGUEZ [facility] September 28, 2013 ADVANCE DIRECTIVE DISCUSSION LENNY MACHUCA [facility] Aug 23, 2013 ADVANCE DIRECTIVE DISCUSSION WILLIAM ENG [facility] Radiology Reports: +/- 30 days [...] the Encounter. The data comes from all [place] treatment facilities. Date/Time Radiology Report Provider Source Nov 07, 2024 03:35 PM OBSTRUCTIVE SERIES : ERICKA CHANDLER [id number] -1955 M Exm Date: NOV 07, 2024@15:35 Req Phys: MELONY FIELDS Loc: PB-CRISTINA PACT DELTA PCP (Req'g L Img Loc: PB-XRAY [place] Service: [place] [address] (Case [id number] COMPLETE) OBSTRUCTIVE SERIES (RAD Detailed) CPT:60251 Reason for Study: abdomnal pain Clinical History: bm normal daily per patient left lower abd Report Status: Verified Date Reported: NOV 07, 2024 Date Verified: NOV 07, 2024 Architectural Examiner E-Sig: Report: Multiple views of the abdomen [...] time Primary Interpreting Staff: JACINTA WAGONER, RADIOLOGIST (Architectural Examiner, no e-sig) /JACINTA [facility] Encounter Notes: All associated encounter notes This section contains the clinical notes associated to the Encounter. 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 [facility] has upcoming appt for fitting. /stiven/ [facility] Signed: 10/22/2024 09:47 YOUNG WALL [facility]
--- OUTSIDE RECORDS SUMMARY | 2024-11-06 19:00 | XMS_ITS | Encounter Summary ---
Author Name [facility] [place] Address [address] [place] [address] Care Team Providers Care Build Technician Name Role Phone RAJAN RPUETT Primary Care Provider UnavailAARON Watt Primary Care [...] Summers's Name Patient's Relationship to Policy Summers [facility] (WNR) MEDICARE ADVANTAGE [facility] (WNR) May 16, 2023 [id number] [phone] ERICKA CHANDLER [facility]IENT [facility] (WNR) MEDICARE ADVANTAGE [facility] (WNR) May 16, 2022 [id number] GERALDINE ERICKA PATIENT CARE IMPROVE PLUS [facility] (WNR) MEDICARE ADVANTAGE [facility] (WNR) May 16, 2015 [id number] ERICKA CHANDLER [facility] (WNR) MEDICARE ADVANTAGE [facility] (WNR) Jun 16, 2019 [id number] ERICKA CHANDLER (WNR) MEDICARE ADVANTAGE [facility] (WNR) Jun 16, 2019 [id number] ERICKA CHANDLER MEDICARE PART D (WNR) MEDICARE (M) PART D September 13, 2018 PART D [id number] ERICKA CHANDLER PATIENT MEDICARE PART D (WNR) MEDICARE (M) PART D September 13, 2018 PART D [id number] ERICKA CHANDLER PATIENT MEDICARE PART D (WNR) MEDICARE (M) PART D May 16, 2015 PART D [id number] ERICKA CHANDLER MEDICARE PART D (WNR) MEDICARE (M) PART D May 16, 2015 PART D [id number] ERICKA CHANDLER MEDICARE PART D (WNR) MEDICARE (M) PART D May 16, 2015 PART D [id number] ERICKA CHANDLER [facility] (WNR) MEDICARE ADVANTAGE [facility] (WNR) Feb 13, 2021 [id number] ERICKA CHANDLER [facility] (WNR) MEDICARE ADVANTAGE [facility] (WNR) Feb 13, 2021 [id number] ERICKA CHANDLER PATIENT Selected Encounter This section includes the information on record at [place] for the Encounter. Date/Time Encounter Type Encounter Description Reason Pro vider Source Nov 07, 2024 12:00 AM Outpatient Encounter EVENT (HISTORICAL) IHE Encounter Template Text not used by [...] 20 appointments. The data comes from all [facility]. Appointment Date/Time Appointment Type Appointme nt Facility Name Nov 19, 2024 02:00 PM AMBULATORY - MEDICINE [facility] Nov 19, 2024 02:02 PM AMBULATORY - MEDICINE [place] [facility] Nov 27, 2024 01:40 PM AMBULATORY - MEDICINE [facility] Dec 11, 2024 09:20 AM AMBULATORY - MEDICINE [facility] Dec 25, 2024 09:20 AM AMBULATORY - MEDICINE [facility] Jan 08, 2025 09:20 AM AMBULATORY - MEDICINE [facility] Jan 22, 2025 09:20 AM AMBULATORY - MEDICINE [facility] Apr 29, 2025 10:00 AM AMBULATORY - MEDICINE [facility] Apr 29, 2025 10:02 AM AMBULATORY [facility] Active, Pending, and Scheduled Orders This section includes a listing of several types of active, pending, and scheduled orders, including clinic medications orders, diagnostic test orders, procedure orders and consult orders; where the start date of the order is 45 days before the date of the Encounter or 45 days after the date of theEncounter. The data comes from all [facility]. Test Date/Time Test Type Test Details Facility Name October 04, 2024 12:00 AM Laboratory - Chemistry Order OCCULT BLOOD FIT X1 SCREEN (MFP ONLY) STOOL FECES [facility] Oct 31, 2024 12:00 AM Laboratory - Chemistry Order CHOLESTEROL PANEL (PB) GREEN LI/HEP BLD/PLAS PLASMA [facility] Oct 31, 2024 12:00 AM Laboratory - Chemistry Order HGA1C BLOOD [facility] Oct 31, 2024 12:00 AM Laboratory - Chemistry Order CBC BLOOD [facility] Oct 31, 2024 12:00 AM Laboratory - Chemistry Order COMPREHENSIVE METABOLIC PANEL GREEN LI/HEP BLD/PLAS PLASMA [facility] Advance Directives: All historical and current Section Date Range: From patient's date of to the date document was created. This section includes ALL of a patient's completed or amended [place] Advance and Rescinded Directives. The entries below indicate that a directive exists for the patient, but an actual copy is not included with this document. The data comes from all [facility]. Date Advance Directives Provider Source September 26, 2014 ADVANCE DIRECTIVE DISCUSSION GRACIELA YUSUF RA [facility] Apr 24, 2014 ADVANCE DIRECTIVE DISCUSSION GRACIELA YUSUF RA [facility] Jan 01, 2014 ADVANCE DIRECTIVE DISCUSSION DAVID RODRIGUEZ [facility] September 28, 2013 ADVANCE DIRECTIVE DISCUSSION LENNY MACHUCA [facility] Aug 23, 2013 ADVANCE DIRECTIVE DISCUSSION WILLIAM ENG [facility] Radiology Reports: +/- 30 days of the [...] the Encounter. The data comes from all [place] treatment facilities. Date/Time Radiology Report Provider Source Nov 07, 2024 03:35 PM OBSTRUCTIVE SERIES : ERICKA CHANDLER RAY [id number] -1955 M Exm Date: NOV 07, 2024@15:35 Req Phys: MELONY FIELDS Pat Loc: PB-CRISTINA PACT DELTA PCP (Req'g L Img Loc: PB-XRAY [place] Service: [place] [address] (Case [id number] COMPLETE) OBSTRUCTIVE SERIES (RAD Detailed) CPT:06082 Reason for Study: abdomnal pain Clinical History: bm normal daily per patient left lower abd Report Status: Verified Date Reported: NOV 07, 2024 Date Verified: NOV 07, 2024 Heading Matcher And Assembler E-Sig: Report: Multiple views of the abdomen [...] time Primary Interpreting Staff: JACINTA WAGONER, RADIOLOGIST (Heading Matcher And Assembler, no e-sig) /JACINTA [facility] [place] [facility]
--- OUTSIDE RECORDS SUMMARY | 2024-11-07 08:40 | XMS_ITS | Encounter Summary ---
Author Name [facility] [place] [facility] [place] Address [address] [place] [address] Care Team Providers Care Aircraft Seat Upholsterer Name Role Phone RAJAN PRUETT Primary Care [...] Summers's Name Patient's Relationship to Policy Summers [facility] (WNR) MEDICARE ADVANTAGE [facility] (WNR) May 16, 2023 [id number] [phone] ERICKA CHANDLER [facility] MEDICARE ADVANTAGE [facility] (WNR) May 16, 2022 [id number] [phone] ERICKA CHANDLER PATIENT CARE IMPROVE PLUS [facility] (WNR) MEDICARE ADVANTAGE [facility] (WNR) May 16, 2015 [id number] [facility] (WNR) Jun 16, 2019 [id number] ERICKA CHANDLER [facility] (WNR) MEDICARE ADVANTAGE [facility] (WNR) Jun 16, 2019 [id number] [phone] ERICKA CHANDLER PATIENT MEDICARE PART D (WNR) MEDICARE (M) PART D September 13, 2018 PART D [id number] ERICKA CHANDLER PATIENT MEDICARE PART D ([place]) MEDICARE (M) PART D September 13, 2018 PART D [id number] [phone] ERICKA CHANDLER PATIENT MEDICARE PART D (WNR) MEDICARE (M) PART D May 16, 2015 PART D [id number] [phone] ERICKA CHANDLER MEDICARE PART D (WNR) MEDICARE (M) PART D May 16, 2015 PART D [id number] ERICKA CHANDLER MEDICARE PART D (WNR) MEDICARE (M) PART D May 16, 2015 PART D [id number] [phone] ERICKA CHANDLER [facility] (WNR) MEDICARE ADVANTAGE [facility] (WNR) Feb 13, 2021 [id number] ERICKA CHANDLER [facility] (WNR) MEDICARE [facility] (WNR) Feb 13, 2021 [id number] [phone] ERICKA CHANDLER PATIENT Selected Encounter This section includes the information on record at [place] for the Encounter. Date/Time Encounter Type Encounter Description Reason Provider Source Nov 07, 2024 01:40 PM CHIROPRACT MANJ 3-4 [facility] [employer] GRAVITY PROSPECTING ICD-10-CM M99.01 Segmental and somatic dysfunction of cervical region ZOË GORE Encounter Template Text not used by [place] Assessments - Encounter Diagnoses This section includes the primary and secondary diagnoses documented for the Encounter. Date/Time Primary/Secondary Diagnosis Diagnosis Name Provider Source Nov 07, 2024 01:46 PM PRIMARY Segmental and somatic dysfunction of cervical region SOFÍA,ZOËSHERIDAN RIVAS [place] [facility] Nov 07, 2024 01:46 PM SECONDARY Cervicalgia [place] [facility] Nov 07, 2024 01:46 PM SECONDARY Oth intvrt disc degen, lumbosacr rgn w discog bck pain only [facility] [facility] Nov 07, 2024 01:46 PM SECONDARY Pain in thoracic spine [facility] Nov 07, 2024 01:46 PM SECONDARY Segmental and somatic dysfunction of lumbar region [place] [facility] Nov 07, 2024 01:46 PM SECONDARY Segmental and somatic dysfunction of pelvic region [place] [facility] Nov 07, 2024 01:46 PM SECONDARY Segmental and somatic dysfunction of thoracic region [place] [facility] Plan of Treatment: Future Appointments (+ 6 months) and Future Tests (+/- 45 days) The Plan of Treatment section includes future care activities for the patient from all [place] [facility]. This section includes future appointments and [...] 19, 2024 02:00 PM AMBULATORY - MEDICINE [facility] Nov 19, 2024 02:02 PM AMBULATORY - MEDICINE [facility] Nov 27, 2024 01:40 PM AMBULATORY - MEDICINE [facility] Dec 11, 2024 09:20 AM AMBULATORY - MEDICINE [facility] Dec 25, 2024 09:20 AM AMBULATORY - MEDICINE [facility] Jan 08, 2025 09:20 AM AMBULATORY - MEDICINE [facility] Jan 22, 2025 09:20 AM AMBULATORY - MEDICINE [facility] Apr 29, 2025 10:00 AM AMBULATORY - MEDICINE [facility] Apr 29, 2025 10:02 AM AMBULATORY - MEDICINE [facility] Active, Pending, and Scheduled Orders This section includes a listing of several types of active, pending, and scheduled orders, including clinic medications orders, diagnostic test orders, procedure orders and consult orders; where the start date of the order is 45 days before the date of the Encounter or 45 days after the date of theEncounter. The data comes from all [place] treatment facilities. Test Date/Time Test Type Test Details Facility Name October 04, 2024 12:00 AM Laboratory - Chemistry Order OCCULT BLOOD FIT X1 SCREEN (MFP ONLY) STOOL [facility] Oct 31, 2024 12:00 AM Laboratory - Chemistry Order CHOLESTEROL PANEL (PB) GREEN LI/HEP BLD/PLAS [facility] Oct 31, 2024 12:00 AM Laboratory - Chemistry Order [id number] BLOOD [facility] Oct 31, 2024 12:00 AM Laboratory - Chemistry Order CBC BLOOD [facility] Oct 31, 2024 12:00 AM Laboratory - Chemistry Order COMPREHENSIVE METABOLIC PANEL GREEN LI/HEP BLD/PLAS [facility]ASMA [facility] Vital Signs: All taken on the encounter date This section contains inpatient and outpatient Vital Signs collected on the date of the Encounter. Date/Time Temperature Pulse Blood Pressure Respiratory Rate SP02 Pain Height Weight Body Mass Index Source Nov 07, 2024 02:39 PM 97.6 F 70 /min 124/70 mm[Hg] 20 /min 95 % 5 203.3 lb 31 [facility] Nov 07, 2024 01:40 PM 97.8 F 73 /min 129/68 mm[Hg] [facility] Social History: Smoking Status (Most current) [...] Date/Time Current Smoking Status Comment Facil ity Nov 07, 2024 02:01 PM VA-TOBACCO USE FORMER CIGARETTES [facility] Tobacco Use History This section includes a history of the smoking, or tobacco-related health factors, that were collected on or before the date of the Encounter. The data comes from the [place] facility where the Encounter took place. Date/Time Smoking Status/Tobacco Use Comment F acility Nov 07, 2024 02:01 PM VA-TOBACCO USE FORMER OTHER TYPE [facility] May 03, 2023 01:16 PM VA-TOBACCO FORMER USER [facility] May 03, 2023 01:16 PM VA-TOBACCO QUIT 15 YRS OR MORE [facility] Advance Directives: All historical and [...] 2014 ADVANCE DIRECTIVE DISCUSSION GRACIELA YUSUF RA [facility] Apr 24, 2014 ADVANCE DIRECTIVE DISCUSSION GRACIELA YUSUF RA [facility] Jan 01, 2014 ADVANCE DIRECTIVE DISCUSSION DAVID RODRIGUEZ [facility] September 28, 2013 ADVANCE DIRECTIVE DISCUSSION LENNY MACHUCA [facility] Aug 23, 2013 ADVANCE DIRECTIVE DISCUSSION WILLIAM ENG [facility] Radiology Reports: +/- 30 days [...] the Encounter. The data comes from all [place] treatment facilities. Date/Time Radiology Report Provider Source Nov 07, 2024 03:35 PM OBSTRUCTIVE SERIES : ERICKA CHANDLER [id number] -1955 M Exm Date: NOV 07, 2024@15:35 Req Phys: MELONY FIELDS Pat Loc: PB-CRISTINA PACT DELTA PCP (Req'g L Img Loc: PB-XRAY [place] Service: [place] [address] (Case [id number] COMPLETE) OBSTRUCTIVE SERIES (RAD Detailed) CPT:31205 Reason for Study: abdomnal pain Clinical History: bm normal daily per patient left lower abd Report Status: Verified Date Reported: NOV 07, 2024 Date Verified: NOV 07, 2024 Operations Label Clerk E-Sig: Report: Multiple views of the abdomen [...] time Primary Interpreting Staff: JACINTA WAGONER, RADIOLOGIST (Operations Label Clerk, no e-sig) /[facility]TA [place] [facility] [place] [facility] Encounter Notes: All associated encounter notes This section contains the clinical notes associated to the Encounter. Date/Time Encounter Note(s) Provider Source Nov 07, 2024 01:38 PM CHIROPRACTIC NOTE: LOCAL TITLE: CHIROPRACTIC FOLLOW UP NOTE PB STANDARD TITLE: CHIROPRACTIC NOTE DATE OF NOTE: NOV 07, 2024@13:38 ENTRY DATE: NOV 07, 2024@13:38:22 AUTHOR: ZOË GORE COSIGNER: URGENCY: STATUS: COMPLETED CHIROPRACTIC FOLLOW-UP VISIT Patient's language preference for health information: Sinhala Other Communication Methods Needed: SUBJECTIVE: The Enid is a 68 year old MALE being seen in the Chiropractic clinic for follow-up visit. The En[place] states his neck is feeling better, while his back is a persistent source of pain. Today, the rates his pain level as a 4/10. PAST MEDICAL HISTORY: see problem list SOCIO-ECONOMIC [...] in all planes of motion. The experience mild pain with the restricted AROM. LUMBAR/THORACIC SPINE: MOVEMENT/POSTURE: The [place] ambulates without issue. SEGMENTAL DYSFUNCTION: Joint dysfunction [...] History: wants to see chiro here at [place] Date Reported: MAY 03, 2023 Report: Lumbar [...] associated myofascial pain. PLAN: This is the first follow up treatment for the of a planned six treatments. Due to the persistent neck and back [...] exercise program and to commit to a middle or intermediate school principal exercise plan. /stiven/ [facility] Signed: 11/07/2024 13:45 ZOË GORE
--- OUTSIDE RECORDS SUMMARY | 2024-11-07 09:01 | XMS_ITS | Encounter Summary ---
Author Name [facility] [place] [facility] [place] [facility] [place] Address [address] [place] [address] Care Team Providers Care Lead Coater Name Role Phone AARON HOOKS Primary Care [...] Summers's Name Patient's Relationship to Policy Summers [facility] (WNR) MEDICARE ADVANTAGE [facility] (WNR) May 16, 2023 [id number] ERICKA [facility]ANDLER [facility] ([facility]) MEDICARE ADVANTAGE [facility] (WNR) May 16, 2022 [id number] [phone] CHANDLERERICKA PATIENT CARE IMPROVE PLUS [facility] (WNR) MEDICARE ADVANTAGE [facility] (WNR) May 16, 2015 [id number] ERICKA CHANDLER [facility] (WNR) MEDICARE ADVANTAGE [facility] (WNR) Jun 16, 2019 [id number] ERICKA CHANDLER (WNR) MEDICARE ADVANTAGE [facility] (WNR) Jun 16, 2019 [id number] ERICKA CHANDLER MEDICARE PART D (WNR) MEDICARE (M) PART D September 13, 2018 PART D [id number] ERICKA CHANDLER PATIENT MEDICARE PART D ([place]NR) MEDICARE (M) PART D September 13, 2018 PART D [id number] ERICKA CHANDLER PATIENT MEDICARE PART D ([place]NR) MEDICARE (M) PART D May 16, 2015 PART D [id number] ERICKA CHANDLER MEDICARE PART D (WNR) MEDICARE (M) PART D May 16, 2015 PART D [id number] ERICKA CHANDLER MEDICARE PART D (WNR) MEDICARE (M) PART D May 16, 2015 PART D [id number] ERICKA CHANDLER [facility] (WNR) MEDICARE ADVANTAGE [facility] (WNR) Feb 13, 2021 [id number] ERICKA CHANDLER [facility] (WNR) MEDICARE ADVANTAGE [facility] (WNR) Feb 13, 2021 [id number] ERICKA CHANDLER PATIENT Selected Encounter This section includes the information on record at [place] for the Encounter. Date/Time Encounter Type Encounter Description Reason Pro vider Source Nov 07, 2024 02:01 PM Outpatient Encounter EVENT (HISTORICAL) IHE Encounter Template [...] 20 appointments. The data comes from all [facility]. Appointment Date/Time Appointment Type Appointme nt Facility Name Nov 19, 2024 02:00 PM AMBULATORY - MEDICINE [facility] Nov 19, 2024 02:02 PM AMBULATORY - MEDICINE [facility] Nov 27, 2024 01:40 PM AMBULATORY - MEDICINE [facility] Dec 11, 2024 09:20 AM AMBULATORY - MEDICINE [facility] Dec 25, 2024 09:20 AM AMBULATORY - MEDICINE [facility] Jan 08, 2025 09:20 AM AMBULATORY - MEDICINE [facility] Jan 22, 2025 09:20 AM AMBULATORY - MEDICINE [facility] Apr 29, 2025 10:00 AM AMBULATORY - MEDICINE [facility] Apr 29, 2025 10:02 AM AMBULATORY [facility] Active, Pending, and Scheduled Orders This section includes a listing of several types of active, pending, and scheduled orders, including clinic medications orders, diagnostic test orders, procedure orders and consult orders; where the start date of the order is 45 days before the date of the Encounter or 45 days after the date of theEncounter. The data comes from all [facility]. Test Date/Time Test Type Test Details Facility Name October 04, 2024 12:00 AM Laboratory - Chemistry Order OCCULT BLOOD FIT X1 SCREEN (MFP ONLY) STOOL [facility] Oct 31, 2024 12:00 AM Laboratory - Chemistry Order [id number] BLOOD [facility] Oct 31, 2024 12:00 AM Laboratory - Chemistry Order CHOLESTEROL PANEL (PB) GREEN LI/HEP BLD/PLAS [facility] Oct 31, 2024 12:00 AM Laboratory - Chemistry Order CBC BLOOD [facility] Oct 31, 2024 12:00 AM Laboratory - Chemistry Order COMPREHENSIVE METABOLIC PANEL GREEN LI/HEP BLD/PLAS [facility]AS[facility] Advance Directives: All historical and current Section Date Range: From patient's date of to the date document was created. This section includes ALL of a patient's completed or amended [place] Advance and Rescinded Directives. The entries below indicate that a directive exists for the patient, but an actual copy is not included with this document. The data comes from all [facility]. Date Advance Directives Provider Source September 26, 2014 ADVANCE DIRECTIVE DISCUSSION GRACIELA YUSUF RA [facility] Apr 24, 2014 ADVANCE DIRECTIVE DISCUSSION GRACIELA YUSUF RA [facility] Jan 01, 2014 ADVANCE DIRECTIVE DISCUSSION DAVID RODRIGUEZ [facility] September 28, 2013 ADVANCE DIRECTIVE DISCUSSION LENNY MACHUCA [facility] Aug 23, 2013 ADVANCE DIRECTIVE DISCUSSION WILLIAM ENG [facility] Radiology Reports: +/- 30 days of [...] the Encounter. The data comes from all [place] treatment facilities. Date/Time Radiology Report Provider Source Nov 07, 2024 03:35 PM OBSTRUCTIVE SERIES : ERICKA CHANDLER RAY [id number] -1955 M Exm Date: NOV 07, 2024@15:35 Req Phys: MELONY FIELDS Pat Loc: PB-CRISTINA PACT DELTA PCP (Req'g L Img Loc: PB-XRAY [facility] Service: [place] [address] (Case [id number] COMPLETE) OBSTRUCTIVE SERIES (RAD Detailed) CPT:02926 Reason for Study: abdomnal pain Clinical History: bm normal daily per patient left lower abd Report Status: Verified Date Reported: NOV 07, 2024 Date Verified: NOV 07, 2024 Green Building Architect E-Sig: Report: Multiple views of the abdomen [...] time Primary Interpreting Staff: JACINTA WAGONER, RADIOLOGIST (Green Building Architect, no e-sig) /JACINTA [facility] [place] [facility]
--- OUTSIDE RECORDS SUMMARY | 2024-11-07 09:01 | XMS_ITS | Encounter Summary ---
Author Name [facility] [place] [facility] [place] [facility] [place] Address [address] [place] [id number] Care Team Providers Care Child Psychometrist Name Role Phone AARON HOOKS Primary Care Provider Unavailab RAJAN Camargo Primary Care Provider Unavailabl e MAXIME CUELLO Primary Care Provider Unavaila MELONY Sewell Primary [...] to Policy [facility] (WNR) MEDICARE ADVANTAGE [facility] (WNR) May 16, 2023 [id number] ERICKA CHANDLER [facility] ([facility] MEDIC[facility] ADVANTAGE [facility] (WNR) May 16, 2022 [id number] ERICKA CHANDLER PATIENT CARE IMPROVE PLUS [facility] (WNR) MEDICARE ADVANTAGE [facility] (WNR) May 16, 2015 [id number] ADV[facility]AGE [facility] (WNR) Jun 16, 2019 [id number] ERICKA CHANDLER MCR (WNR) MEDICARE ADVANTAGE [facility] (WNR) Jun 16, 2019 [id number] ERICKA CHANDLER PATIENT MEDICARE PART D (WNR) MEDICARE (M) PART D September 13, 2018 PART D [id number] ERICKA CHANDLER PATIENT MEDICARE PART D (WNR) MEDICARE (M) PART D September 13, 2018 PART D [id number] ERICKA CHANDLER PATIENT MEDICARE PART D (WNR) MEDICARE (M) PART D May 16, 2015 PART D [id number] ERICKA CHANDLER MEDICARE PART D (WNR) MEDICARE (M) PART D May 16, 2015 PART D [id number] ERICKA CHANDLER MEDICARE PART D (WNR) MEDICARE (M) PART D May 16, 2015 PART D [id number] ERICKA CHANDLER [facility] (WNR) MEDICARE ADVANTAGE [facility] (WNR) Feb 13, 2021 [id number] ERICKA CHANDLER [facility] (WNR) MEDICARE ADVANTAGE [facility] (WNR) Feb 13, 2021 [id number] ERICKA CHANDLER PATIENT Selected Encounter This section includes the information on record at [place] for the Encounter. Date/Time Encounter Type Encounter Description Reason Provider Source Nov 07, 2024 02:01 PM IMMUNIZATION ADMIN PRIMARY CARE/MEDICINE ICD-10-CM Z23. Encounter for immunization MELONY FIELDS Encounter Template Text not used by [place] Assessments - Encounter Diagnoses This section includes the primary and secondary diagnoses documented for the Encounter. Date/Time Primary/Secondary Diagnosis Diagnosis Name Provider Source Nov 07, 2024 02:01 PM SECONDARY Encounter for immunization YOVANI SONG [facility] Plan of Treatment: Future Appointments (+ 6 months) and Future Tests (+/- 45 days) The Plan of Treatment section includes future care activities for the [place] [facility] [place] [facility] This section includes future appointments and future orders which are active, pending or scheduled. Future Appointments This section includes appointments that were scheduled to occur 6 months from the date of the Encounter, up to a maximum of 20 appointments. The data comes from all [facility]. Appointment Date/Time Appointment Type Appointme nt Facility Name Nov 19, 2024 02:00 PM AMBULATORY - MEDICINE [facility] Nov 19, 2024 02:02 PM AMBULATORY - MEDICINE [facility] Nov 27, 2024 01:40 PM AMBULATORY - MEDICINE [facility] Dec 11, 2024 09:20 AM AMBULATORY - MEDICINE [facility] Dec 25, 2024 09:20 AM AMBULATORY - MEDICINE [facility] Jan 08, 2025 09:20 AM AMBULATORY - MEDICINE [facility] Jan 22, 2025 09:20 AM AMBULATORY - MEDICINE [facility] Apr 29, 2025 10:00 AM AMBULATORY - MEDICINE [facility] Apr 29, 2025 10:02 AM AMBULATORY MEDICINE [facility] Active, Pending, and Scheduled Orders This section includes a listing of several types of active, pending, and scheduled orders, including clinic medications orders, diagnostic test orders, procedure orders and consult orders; where the start date of the order is 45 days before the date of the Encounter or 45 days after the date of theEncounter. The data comes from all [facility]. Test Date/Time Test Type Test Details Facility Name October 04, 2024 12:00 AM Laboratory - Chemistry Order OCCULT BLOOD FIT X1 SCREEN (MFP ONLY) STOOL FECES [facility] Oct 31, 2024 12:00 AM Laboratory - Chemistry Order [id number] BLOOD [facility] Oct 31, 2024 12:00 AM Laboratory - Chemistry Order CHOLESTEROL PANEL (PB) GREEN LI/HEP BLD/PLAS PLASMA [facility] Oct 31, 2024 12:00 AM Laboratory - Chemistry Order CBC BLOOD [facility] Oct 31, 2024 12:00 AM Laboratory - Chemistry Order COMPREHENSIVE METABOLIC PANEL GREEN LI/HEP BLD/PLAS PLASMA [facility] Vital Signs: All taken on the encounter date This section contains inpatient and outpatient Vital Signs collected on the date of the Encounter. Date/Time Temperature Pulse Blood Pressure Respiratory Rate SP02 Pain Height Weight Body Mass Index Source Nov 07, 2024 02:39 PM 97.6 F 70 /min 124/70 mm[Hg] 20 /min 95 % 5 203.3 lb 31 [facility] Nov 07, 2024 01:40 PM 97.8 F 73 /min 129/68 mm[Hg] [facility] Immunizations: All administered on the encounter date This section contains immunizations associated to the Encounter. Immunization Series Date Issued Administered By Site Reaction Lot Number CVX Code Drug [place] Custodian Comment(s) Source RSV, BIVALENT, PROTEIN SUBUNIT RSVPREF, DILUENT RECONSTITUTED , 0.5 ML, PF Nov 07, 2024 CURTIS SONG LEFT DELTO ID [id number] [employer] ADMINISTERE D AT [facility] Social History: Smoking Status (Most current) and Tobacco Use (All prior to encounter date) This section includes the most current, and the historical, smoking and tobacco- related health factors from the [place] facility where the Encounter took place. Current Smoking Status This section includes the most current smoking, or tobacco-related health factor, from the [place] facility where the Encounter took place. Date/Time Current Smoking Status Comment Facil ity Nov 07, 2024 02:01 PM VA-TOBACCO USE FORMER CIGARETTES [facility] Tobacco Use History This section includes a history of the smoking, or tobacco-related health factors, that were collected on or before the date of the Encounter. The data comes from the [place] facility where the Encounter took place. Date/Time Smoking Status/Tobacco Use Comment F acility Nov 07, 2024 02:01 PM VA-TOBACCO USE FORMER OTHER TYPE [facility] May 03, 2023 01:16 PM VA-TOBACCO FORMER USER [facility] May 03, 2023 01:16 PM VA-TOBACCO QUIT 15 YRS OR MORE [facility] Advance Directives: All historical and current Section Date Range: From patient's date of to the date document was created. This section includes ALL of a patient's completed or amended [place] Advance and Rescinded Directives. The entries below indicate that a directive exists for the patient, but an actual copy is not included with this document. The data comes from all [place] facilities. Date Advance Directives Provider Source September 26, 2014 ADVANCE DIRECTIVE DISCUSSION GRACIELA YUSUF RA N [facility] Apr 24, 2014 ADVANCE DIRECTIVE DISCUSSION GRACIELA YUSUF RA N [facility] Jan 01, 2014 ADVANCE DIRECTIVE DISCUSSION DAVID RODRIGUEZ [facility] September 28, 2013 ADVANCE DIRECTIVE DISCUSSION LENNY MACHUCA [facility] Aug 23, 2013 ADVANCE DIRECTIVE DISCUSSION WILLIAM ENG [facility] Radiology Reports: +/- 30 days of the [...] the Encounter. The data comes from all [place] treatment facilities. Date/Time Radiology Report Provider Source Nov 07, 2024 03:35 PM OBSTRUCTIVE SERIES : ERICKA CHANDLER RAY [id number] -[id number] M Exm Date: NOV 07, 2024@15:35 Req Phys: MELONY FIELDS Pat Loc: [facility] PCP (Req'g L Img Loc: [facility] Service: [place] [address] (Case [id number] COMPLETE) OBSTRUCTIVE SERIES (RAD Detailed) CPT:16996 Reason for Study: abdomnal pain Clinical History: bm normal daily per patient left lower abd Report Status: Verified Date Reported: NOV 07, 2024 Date Verified: NOV 07, 2024 Reclamation Engineer E-Sig: Report: Multiple views of the abdomen [...] time Primary Interpreting Staff: JACINTA WAGONER, RADIOLOGIST (Reclamation Engineer, no e-sig) /JACINTA Roy [facility] Encounter Notes: All associated encounter notes This section contains the clinical notes associated to the Encounter. Date/Time Encounter Note(s) Provider Source Nov 07, 2024 02:18 PM PRIMARY CARE NURSI BARBIE NOTE: LOCAL TITLE: PRIMARY CARE NURSING PROGRESS NOTE (TEXT) NURSING P STANDARD TITLE: PRIMARY CARE NURSING NOTE DATE OF NOTE: NOV 07, 2024@14:18 ENTRY DATE: NOV 07, 2024@14:18:52 AUTHOR: DAVIE SONG COSIGNER: URGENCY: STATUS: COMPLETED PRIMARY CARE NURSING PROGRESS NOTE (TEXT) NURSING PB Has ADDENDA Established Patient ERICKA CHANDLER IS A 68 YEAR OLD MALE BEING SEEN IN CLINIC NOV 07, 2024. = = REASON FOR VISIT: Multiple concerns. Are you receiving care any where other than the [facility]? Yes, [facility] HEALTH AND SURGICAL HISTORY: Does patient report using home oxygen? CURRENT ACTIVE MEDICATIONS FOR REVIEW: If the list for review does not include a component, then it was not applicable to this patient. Allergies/ADRs (Tool #5) FACILITY ALLERGY/ADR -------- [facility] NO KNOWN ALLERGIES LT COL DAX [facility] NO KNOWN ALLERGIES PHANI MACKEY [facility] NO KNOWN ALLERGIES [facility] No Known Allergies [facility] NO KNOWN ALLERGIES Med. Reconciliation (Tool #1) INCLUDED IN THIS LIST: Alphabetical list of active outpatient prescriptions dispensed from this [place] (local) and dispensed from another [place] or [facility]D facility (remote) as well as inpatient orders (local pending and active), local clinic medications, locally documented non-VA medications, and local prescriptions that have or been discontinued in the past 90 days. Non-VA Meds Last Documented On: October 04, 2024 NOTE The display of VA prescriptions dispensed from another [place] or [facility] facility (remote) is limited to active outpatient prescription entries matched to National Drug File at the originating site and may not include some items such as investigational drugs, compounds, etc. NOT INCLUDED IN THIS LIST: Medications self-entered by the patient into personal health records (i.e. Lumiary) are NOT included in this list. Non-VA medications documented outside this [place], remote inpatient orders (regardless of status) and [...] RINSE MOUTHPIECE FREQUENTLY TO PREVENT CLOGGING. Rx# [id number] Last Released: 05/04/24 Qty/Days Supply: 06/14 Rx Expiration Date: 05/03/25 Refills Remainin Indication: FOR SHORTNESS OF BREATH OUTPT ALIROCUMAB 150MG/ML INJ 1ML PEN (Status = Discontinued) INJECT 150MG UNDER THE SKIN EVERY 4 WEEKS FOR HIGH CHOLESTEROL Rx# [id number] Last Released: 07/25/24 Qty/Days Supply: 07/13 Rx Expiration Date: 09/21/24 Refills Remainin Indication: FOR HIGH CHOLESTEROL OUTPT ALIROCUMAB 150MG/ML INJ 1ML PEN (Status = Active) INJECT 150MG UNDER THE SKIN EVERY 4 WEEKS FOR HIGH CHOLESTEROL Rx# [id number] Last Released: 10/30/24 Qty/Days Supply: 07/13 Rx Expiration Date: 10/05/25 Refills Remainin Indication: FOR HIGH CHOLESTEROL Non-VA APPLE CIDER VINEGAR CAP/TAB TAKE 1 CAP/TAB BY MOUTH ONCE A DAY Jul 14, 2023 VA RX: Non-VA medication recommended by [place] provider [place] RX: Patient wants to buy from Non-[place] pharmacy Indication: supplement OUTPT ARTIFICIAL TEARS PVA 1.4%/POVIDONE (PF) (Status = Active) INSTILL 1 DROP IN BOTH EYES TWICE A DAY FOR DRY EYE(S) Rx# [id number] Last Released: 01/30/24 Qty/Days Supply: 90 Rx Expiration Date: 01/24/25 Refills Remainin Indication: FOR DRY EYE(S) OUTPT ASPIRIN 81MG EC TAB (Status = Active) TAKE ONE TABLET BY MOUTH ONCE A DAY FOR CARDIOVASCULAR DISEASE TAKE WITH FOOD. Rx# [id number] Last Released: 10/09/24 Qty/Days Supply: 120/90 Rx Expiration Date: 03/10/25 Refills Remainin Indication: FOR CARDIOVASCULAR DISEASE OUTPT ATORVASTATIN CALCIUM 80MG TAB (Status = Active) TAKE ONE-HALF TABLET BY MOUTH EVERY EVENING FOR HIGH CHOLESTEROL Rx# [id number] Last Released: 10/03/24 Qty/Days Supply: 45 Rx Expiration Date: 03/29/25 Refills Remainin Indication: FOR HIGH CHOLESTEROL Non-VA CHOLECALCIF 50MCG (D3-2,000UNIT) TAB TAKE ONE TABLET BY MOUTH ONCE A DAY October 04, 2024 [place] RX: Non-VA medication recommended by [place] provider [place] RX: Patient wants to buy from Non-[place] pharmacy increased dose Indication: FOR VITAMIN D DEFICIENCY OUTPT CLOPIDOGREL BISULFATE 75MG TAB (Status = Discontinued) TAKE ONE TABLET BY MOUTH ONCE A DAY Rx# [id number] Last Released: 08/27/24 Qty/Days Supply: Rx Expiration Date: 01/03/25 Refills Remainin OUTPT CLOPIDOGREL BISULFATE 75MG TAB (Status = Active/Suspended) TAKE ONE TABLET BY MOUTH ONCE A DAY Rx# [id number] Last Released: 10/22/24 Qty/Days Supply: Rx Expiration Date: 10/18/25 Refills Remainin OUTPT DULOXETINE HCL 60MG EC CAP (Status = Active/Suspended) TAKE ONE CAPSULE BY MOUTH ONCE A DAY FOR MUSCULOSKELETAL PAIN DO NOT ABRUPTLY DISCONTINUE MEDICATION. Rx# [id number] Last Released: 09/13/24 Qty/Days Supply: 90 Rx Expiration Date: 05/01/25 Refills Remainin Indication: FOR MUSCULOSKELETAL PAIN OUTPT EMPAGLIFLOZIN 25MG TAB (Status = Active) TAKE ONE-HALF TABLET BY MOUTH ONCE A DAY FOR HEART FAILURE Rx# [id number] Last Released: 10/09/24 Qty/Days Supply: 45 Rx Expiration Date: 05/03/25 Refills Remainin Indication: FOR HEART FAILURE Non-VA FISH OIL 1000MG (500MG DHA/EPA) CAP TAKE 2 CAPSULES BY MOUTH THREE TIMES A DAY WITH MEALS Jul 14, 2023 [place] RX: Non-VA medication recommended by [place] provider [place] RX: Patient wants to buy from Non-[place] pharmacy Indication: FOR HIGH TRIGLYCERIDES OUTPT FUROSEMIDE 20MG TAB (Status = Discontinued) TAKE ONE TABLET BY MOUTH EVERY MORNING Rx# [id number] Last Released: 05/03/24 Qty/Days Supply: Rx Expiration Date: 09/20/24 Refills Remainin OUTPT FUROSEMIDE 20MG TAB (Status = Active) TAKE ONE TABLET BY MOUTH EVERY MORNING Rx# [id number] Last Released: 10/05/24 Qty/Days Supply: Rx Expiration Date: 10/05/25 Refills Remainin OUTPT HYDROXYZINE HCL 50MG TAB (Status = Active) TAKE TWO TABLETS BY MOUTH AT BEDTIME NEEDED INSOMNIA *MAY CAUSE DROWSINESS* Rx# [id number] Last Released: 04/11/24 Qty/Days Supply: 180/ Rx Expiration Date: 03/24/25 Refills Remainin Indication: INSOMNIA Non-VA LEVOCARNITINE 500MG CAP TAKE 2 CAPSULES BY MOUTH EVERY MORNING September 21, 2023 [place] RX: Non-VA medication recommended by [place] provider [place] RX: Patient wants to buy from Non-[place] pharmacy Indication: FOR DIETARY CARNITINE DEFICIENCY OUTPT LISINOPRIL 2.5MG TAB (Status = Active) TAKE ONE-HALF TABLET BY MOUTH ONCE A DAY FOR HEART FAILURE Rx# [id number] Last Released: 10/09/24 Qty/Days Supply: 45 Rx Expiration Date: 05/03/25 Refills Remainin Indication: FOR HEART FAILURE OUTPT LORATADINE 10MG TAB (Status = Active) TAKE ONE TABLET BY MOUTH ONCE A DAY FOR ALLERGIC RHINITIS ON EMPTY STOMACH Rx# [id number] Last Released: 08/06/24 Qty/Days Supply: 90/90 Rx Expiration Date: 05/01/25 Refills Remainin Indication: FOR ALLERGIC RHINITIS OUTPT MELATONIN 5MG CAP/TAB (Status = ) TAKE ONE CAP/TAB BY MOUTH AT BEDTIME FOR SLEEP Rx# [id number] Last Released: 09/08/24 Qty/Days Supply: 90/90 Rx Expiration Date: 10/31/24 Refills Remainin Indication: FOR SLEEP OUTPT METOPROLOL TARTRATE 25MG TAB (Status = Active) TAKE ONE TABLET BY MOUTH TWICE A DAY TAKE WITH OR IMMEDIATELY FOLLOWING FOOD. Rx# [id number] Last Released: 11/01/24 Qty/Days Supply: 180/90 Rx Expiration Date: 06/15/25 Refills Remainin OUTPT MONTELUKAST NA 10MG TAB (Status = Active) TAKE ONE TABLET BY MOUTH EVERY EVENING FOR ALLERGIC RHINITIS Rx# [id number] Last Released: 11/02/24 Qty/Days Supply: 90/90 Rx Expiration Date: 05/01/25 Refills Remainin Indication: FOR ALLERGIC RHINITIS OUTPT MULTIVITAMIN CAP/TAB (Status = Active) TAKE 1 TABLET BY MOUTH ONCE A DAY FOR NUTRITION/DIETARY SUPPLEMENTATION Rx# [id number] Last Released: 11/05/24 Qty/Days Supply: 100/90 Rx Expiration Date: 05/01/25 Refills Remainin Indication: FOR NUTRITION/DIETARY SUPPLEMENTATION Non-VA MULTIVITAMIN/MINERAL ANTIOXIDANT CAP/TAB ANTIOXIDANT CAP/TAB TAKE 1 CAP/TAB BY MOUTH ONCE A DAY September 21, 2023 VA RX: Non-VA medication recommended by [place] provider [place] RX: Patient wants to buy from Non-[place] pharmacy Indication: FOR NUTRITION/DIETARY SUPPLEMENTATION OUTPT OMEPRAZOLE 40MG EC CAP (Status = Active) TAKE ONE CAPSULE BY MOUTH TWO TIMES A DAY BEFORE MEALS FOR GASTROESOPHAGEAL REFLUX DISEASE TAKE 30 MINUTES PRIOR TO FOOD. Rx# [id number] Last Released: 11/05/24 Qty/Days Supply: 180/90 Rx Expiration Date: 05/03/25 Refills Remainin Indication: FOR GASTROESOPHAGEAL REFLUX DISEASE OUTPT RANOLAZINE 1000MG SA TAB (Status = Active) TAKE ONE TABLET BY MOUTH TWICE A DAY FOR CHEST PAIN *SWALLOW WHOLE- DO NOT CRUSH,BREAK OR CHEW* Rx# [id number] Last Released: 10/25/24 Qty/Days Supply: 60 Rx Expiration Date: 05/03/25 Refills Remainin Indication: FOR CHEST PAIN OUTPT TAMSULOSIN HCL 0.4MG CAP (Status = Active) TAKE TWO CAPSULES BY MOUTH EVERY EVENING FOR BENIGN PROSTATIC HYPERPLASIA APPROXIMATELY 30 MINUTES AFTER THE SAME MEAL EACH DAY Rx# [id number] Last Released: 11/06/24 Qty/Days Supply: 180/90 Rx Expiration Date: 05/03/25 Refills Remainin Indication: FOR BENIGN PROSTATIC HYPERPLASIA OUTPT TRAMADOL HCL 50MG TAB (Status = Active) TAKE 1 TABLET BY MOUTH TWICE DAILY NEEDED FOR PAIN Rx# [id number] Last Released: 11/02/24 Qty/Days Supply: 6030 Rx Expiration Date: 01/24/25 Refills Remainin Indication: FOR PAIN SUPPLIES OUTPT SYRINGE 2.5-3ML/NDL 22G 1.5IN SAFETY (Status = ) USE 1 SYRINGE INTRAMUSCULARLY DIRECTED FOR INJECTION Rx# [id number] Last Released: Supply: Rx Expiration Date: 11/01/24 Refills Remainin Indication: FOR INJECTION PHARMACY TERMS AND POSSIBLE PATIENT ACTIONS INPT = [place] inpatient order IV = [place] intravenous medication OUTPT = [place] outpatient prescription PHARMACY POSSIBLE PATIENT TERMS EXPLANATION ACTIONS -------- ---- ACTIVE A prescription that can be If you have refills, filled at the local VA pharmacy. you may request a refill of this prescription from your VA pharmacy. CLINIC A medication you received during If you have questions a visit to a VA clinic or about this medication emergency department. contact your VA healthcare team. DISCONTINUED A prescription your provider has Contact your VA stopped. It is no longer healthcare team if you available to be sent to you or need more of this picked up at the [place] pharmacy medication. window. A prescription which is [...] the VA. Or, it may be an sbla-oeo-zafqldu (OTC), herbal, dietary supplements or sample medication. [...] before this medication now. you run out. Medication list reviewed with Patient Patient/Caregiver reports taking medications as ordered. IS PATIENT TAKING ANY OVER THE COUNTER MEDICATIONS, SUCH VITAMINS OR HERBAL SUPPLEMENTS, INCLUDING ANY MEDICATIONS PRESCRIBED BY ANOTHER PHYSICIAN? No Does patient have any new allergies to report since last visit? NO VITALS: TEMPERATURE: 97.8 F [36.6 C] (11/07/2024 13:40) BP: 129/68 (11/07/2024 13:40) RESP: 20 (05/02/2024 13:06) PULSE: 73 (11/07/2024 13:40) HT: 68 in [172.7 cm] (05/03/2023 13:55) [...] Now let us serve you. At the [facility], we strive to provide you with exceptional [...] Not At All SPIRITUAL ASSESSMENT: Are there faith practices or spiritual concerns you want the casino change attendant, your physician, and other health care team members to immediately know about? No Patient advised to call the clinic for any concerns, questions, or symptoms. Patient and/or caregiver verbalized understanding of plan of care. COVID-19 Immunization-L,N,P,PH,U: Refused Moderna Monovalent COVID-19 vaccine Immunization: COVID-19 (MODERNA), MRNA, LNP-S, PF, 50 MCG/0.5 ML (AGES 12+ YEARS) Refusal Reason: PATIENT DECISION Patient refuses all immunization(s) in the COVID-19 group Date Documented: 11/07/24 14:26 Alcohol Use Screen (AUDIT-C) - V: Alcohol Screen: SCREEN FOR ALCOHOL (AUDIT-C) An alcohol screening test (AUDIT-C) was negative (score=1). 1. How often did you have a drink containing alcohol in the past year? Consider a drink to be a 12 ounce can or bottle of regular beer, 8 ounces of malt liquor, a 5 ounce glass of table wine, or a 1.5 ounce shot of liquor (like scotch, gin, or vodka). Monthly or less 2. How many drinks containing alcohol did you have on a typical day when you were drinking in the past year? One or two drinks 3. How often did you have six or more drinks on one occasion in the past year? Never Avg Risk Colorectal Cancer Screen - L,N,P,PH: AVERAGE RISK colorectal cancer screening is due based on information available to this clinical reminder Screening is due now. Colonoscopy consult has been ordered. See orders tab for details. Avg Risk Colorectal Cancer Screen - L,N,P,PH: AVERAGE RISK colorectal cancer screening is due based on information available to this clinical reminder Colorectal cancer screening already scheduled or in process of being scheduled. Comment: Planning to go to [place] Tobacco Use Screening - AT,DE,L,M,N,P,PH,PS,RT,S,U: The patient is a former cigarette smoker. Quit smoking GREATER THAN OR EQUAL to 15 years. The patient formerly used other types of tobacco. Homelessness/Food Insecurity Screen - DI,L,N,P,PH,PS,S,U: In the past 2 months, have you been living in stable housing that you own, rent, or stay in as part of a household? Yes - Living in stable housing. Are you worried or concerned that in the next 2 months you may NOT have stable housing that you own, rent, or stay in as part of a household? No - Not worried about housing near future The reports the following: Within the past 12 months, you worried whether your food would run out before you got money to buy more. Never true Within the past 12 months, the food you bought just didn't last and you didn't have money to get more. Never true Advanced Directive Screen/Procedure Manager: ADVANCE DIRECTIVE SCREENING: I asked if the patient has an advance directive, and determined that: Patient does not have an Advance Directive. Patient was given form to update and return when completed. ADVANCE DIRECTIVE NOTIFICATION I provided the patient with written notification about advance directives. Level of understanding: Good Tdap Immunization - L,N,P,PH,U: The patient declines to receive the recommended dose of Tdap vaccine. Immunization: TDAP Refusal Reason: PATIENT DECISION Patient refuses all immunization(s) in the TDAP group Date Documented: 11/07/24 14:32 Pain Assessment: - PAIN ASSESSMENT: .. This patient's last pain assessment score was: 3 (05/02/2024 13:06). A detailed pain assessment showed the following: Location of current pain Hands and abdomen Patient's self identified pain goal: 5 VVC DIGITAL DIVIDE CAPABILITY REMINDER: Patient is not interested in VVC at this time. 'S RIGHT TO DECLINE STATEMENT understands they have the right to decline the use of Telehealth Technology at any time without adverse affects on their continued access to healthcare. Patient/Nurse Interview: * * Patient stated that adequate information was received regarding the condition and/or treatment. [facility] MAP: PERSONAL HEALTH PLAN INVENTORY & MAP 's Response: FAmily PAVE Foot Check - L,N,P,PH,PO,PT,U: A complete foot check was completed at this encounter. VISUAL INSPECTION: Includes inspection for skin breaks, deformity, erythema, trauma, pallor on elevation, dependent rubor, nail deformities, extensive callus and pitting edema. Visual exam results: Abnormal Observations: old sore to left 4th and 5th toe. No redness or drainage. PEDAL PULSES: Includes palpation of dorsalis and posterior tibial pulses and signs/symptoms of vascular compromise like pain, pallor, parasthesia or paralysis. Present (even if diminished) SENSORY CHECK: Includes 10 gram Monofilament ([place]) test of sensation. Intact (Greater than or equal to 80% of sites checked) Abnormal (Less than 80% of sites checked): Abnormal (decreased or absent sensation to monofilament): Comment: [place] 8/10 each foot. LOW-RISK: LOW RISK INFORMATION PROVIDED: 1. Advised patient not to walk barefoot. 2. Explained the importance of daily foot checks for changes. 3. Stressed the importance of daily foot hygiene, including bathing and complete drying. The patient verbalized understanding and was offered a detailed handout on diabetic foot care. /stiven/ DAVIE SONG LPN [facility] Signed: 11/07/2024 14:49 11/07/2024 ADDENDUM STATUS: COMPLETED RSV Immunization: Respiratory Syncytial Virus (RSV) Vaccine: RSV vaccine administered today. Administered: RSV, BIVALENT, PROTEIN SUBUNIT RSVPREF, DILUENT RECONSTITUTED, 0.5 ML, PF Date Administered: Nov 07, 2024 14:01 [place] [employer] Custodian: [employer] Lot: [id number] Exp Date: Mar 15, 2025 ND: [id number] Admin Route/Site: INTRAMUSCULAR/LEFT DELTOID Dosage: 0.5mL Vaccine Information Statement(s): RSV (RESPIRATORY SYNCYTIAL VIRUS) VACCINE VIS Jun 15, 2024 ([place]) Order By: Policy Administered By: Davie Song Vaccine Information Sheet (VIS) was given to the patient/caregiver, education regarding adverse reactions was discussed, as well as barriers to learning, if any, were acknowledged. /manuel SONG LPN [facility] Signed: 11/07/2024 15:52 DAVIE SONG [facility]
--- OUTSIDE RECORDS SUMMARY | 2024-11-13 14:05 | XMS_ITS | Continuity of Care Document ---
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 TRIGLYCERIDE [MASS/VOLUME] IN SERUM OR PLASMA 119 mg/dL 0 - 150 09/25 Specimen Type: PLASMA No comment entered. Ordering Provider: TY PAULSON Report Released Date/Time : May 02, 2024 11:43 AM Reporting Lab: [place] [facility] [address] [place] [address] 8 Performin g Lab: [place] [facility] [address] [place] [address] 8 [facility] CHOLESTEROL PANEL (PB) CHOLESTEROL IN LDL [MASS/VOLUME] IN SERUM OR PLASMA BY CALCULATION 3.2 mg/dL 09/25 Specimen Type: PLASMA No comment entered. Ordering Provider: TY PAULSON Report Released Date/Time : May 02, 2024 11:43 AM Reporting Lab: [place] [facility] [address] [place] [address] Performin g Lab: [place] [facility] [address] [place] [address] 8 [facility] CHOLESTEROL PANEL (PB) CHOLESTEROL IN HDL [MASS/VOLUME] IN SERUM OR PLASMA 42.0 mg/dL 40 09/25 H Specimen Type: PLASMA No comment entered. Ordering Provider: TY PAULSON Report Released Date/Time : May 02, 2024 11:43 AM Reporting Lab: [place] [facility] [address] [place] [address] Performin g Lab: [place] [facility] [address] [place] [address] 8 [facility] CHOLESTEROL PANEL (PB) CHOLESTEROL IN HDL/CHOLESTER OL.TOTAL [MASS RATIO] IN SERUM OR PLASMA 60.9 25 09/25 Specimen Type: PLASMA No comment entered. Ordering Provider: TY PAULSON Report Released Date/Time : May 02, 2024 11:43 AM Reporting Lab: [place] [facility] [address] [place] [address] 8 Performin g Lab: [place] [facility] [address] [place] [address] 8 [facility] VITAMIN D, 25-HYDROXY 25-HYDROXYVIT MICHELLE D3 [MASS/VOLUME] IN SERUM OR PLASMA 55.1 ng/mL 30 - 96 09/25 Specimen Type: SERUM No comment entered. Ordering Provider: TY PAULSON Report Released Date/Time : May 02, 2024 11:43 AM Reporting Lab: [place] [facility] [address] [place] [address] 8 Performin g Lab: [place] [facility] [address] [place] [address] 8 [facility] COMPREHENSI VE METABOLIC PANEL CREATININE [MASS/VOLUME] IN SERUM OR PLASMA 0.99 mg/dL 0.7 - 1.3 09/25 Specimen Type: PLASMA No comment entered. Ordering Provider: TY PAULSON Report Released Date/Time : May 02, 2024 11:43 AM Reporting Lab: [place] [facility] [address] [place] [address] 8 Performin g Lab: [place] [facility] [address] [place] [address] 8 [facility] COMPREHENSI VE METABOLIC PANEL UREA NITROGEN [MASS/VOLUME] IN SERUM OR PLASMA 20 mg/dL 9 - 25 09/25 Specimen Type: PLASMA No comment entered. Ordering Provider: TY PAULSON Report Released Date/Time : May 02, 2024 11:43 AM Reporting Lab: [place] [facility] [address] [place] [address] 8 Performin g Lab: [place] [facility] [address] [place] [address] 8 [facility] COMPREHENSI VE METABOLIC PANEL GLUCOSE [MASS/VOLUME] IN SERUM OR PLASMA 131 mg/dL 72 - 99 09/25 H Specimen Type: PLASMA No comment entered. Ordering Provider: TY PAULSON Report Released Date/Time : May 02, 2024 11:43 AM Reporting Lab: [place] [facility] [address] [place] [address] 8 Performin g Lab: [place] [facility] [address] [place] [address] 8 [facility] COMPREHENSI VE METABOLIC PANEL SODIUM [MOLES/VOLUME ] IN SERUM OR PLASMA 145 meq/L 136 - 145 09/25 Specimen Type: PLASMA No comment entered. Ordering Provider: TY PAULSON Report Released Date/Time : May 02, 2024 11:43 AM Reporting Lab: [place] [facility] [address] [place] [address] 8 Performin g Lab: [place] [facility] [address] [place] [address] 8 [place] [facility] COMPREHENSI VE METABOLIC PANEL POTASSIUM [MOLES/VOLUME ] IN SERUM OR PLASMA 4.1 meq/L 3.5 - 5 09/25 Specimen Type: PLASMA No comment entered. Ordering Provider: TY PAULSON Report Released Date/Time : May 02, 2024 11:43 AM Reporting Lab: [place] [facility] [address] [place] [address] 8 Performin g Lab: [place] [facility] [address] [place] [address] 8 [place] COMPREHENSI VE METABOLIC PANEL CHLORIDE [MOLES/VOLUME ] IN SERUM OR PLASMA 106 meq/L 98 - 107 09/25 Specimen Type: PLASMA No comment entered. Ordering Provider: TY PAULSON Report Released Date/Time : May 02, 2024 11:43 AM Reporting Lab: [place] [facility] [address] [place] [address] 8 Performin g Lab: [place] [facility] [address] [place] [address] 8 [facility] COMPREHENSI VE METABOLIC PANEL CARBON DIOXIDE, TOTAL [MOLES/VOLUME ] IN SERUM OR PLASMA 29 meq/L 22 - 31 09/25 Specimen Type: PLASMA No comment entered. Ordering Provider: TY PAULSON Report Released Date/Time : May 02, 2024 11:43 AM Reporting Lab: [place] [facility] [address] [place] [address] 8 Performin g Lab: [place] [facility] [address] [place] [address] 8 [place] COMPREHENSI VE METABOLIC PANEL CALCIUM [MASS/VOLUME] IN SERUM OR PLASMA 9.1 mg/dL 8.4 - 10.4 09/25 Specimen Type: PLASMA No comment entered. Ordering Provider: TY PAULSON Report Released Date/Time : May 02, 2024 11:43 AM Reporting Lab: [place] [facility] [address] [place] [address] 8 Performin g Lab: [place] [facility] [address] [place] [address] 8 [facility] COMPREHENSI VE METABOLIC PANEL PROTEIN [MASS/VOLUME] IN SERUM OR PLASMA 6.5 g/dL 6 - 8.6 09/25 Specimen Type: PLASMA No comment entered. Ordering Provider: TY PAULSON Report Released Date/Time : May 02, 2024 11:43 AM Reporting Lab: [place] [facility] [address] [place] [address] 8 Performin g Lab: [place] [facility] [address] [place] [address] 8 [facility] COMPREHENSI VE METABOLIC PANEL ALBUMIN [MASS/VOLUME] IN SERUM OR PLASMA 4.4 g/dL 3.4 - 5 09/25 Specimen Type: PLASMA No comment entered. Ordering Provider: TY PAULSON Report Released Date/Time : May 02, 2024 11:43 AM Reporting Lab: [place] [facility] [address] [place] [address] 8 Performin g Lab: [place] [facility] [address] [place] [address] 8 [facility] COMPREHENSI VE METABOLIC PANEL BILIRUBIN.TOT AL [MASS/VOLUME] IN SERUM OR PLASMA 0.8 mg/dL 0.2 - 1.2 09/25 Specimen Type: PLASMA No comment entered. Ordering Provider: TY PAULSON Report Released Date/Time : May 02, 2024 11:43 AM Reporting Lab: [place] [facility] [address] [place] [address] 8 Performin g Lab: [place] [facility] [address] [place] [address] 8 [facility] COMPREHENSI VE METABOLIC PANEL ALKALINE PHOSPHATASE [ENZYMATIC ACTIVITY/VOLU ME] IN SERUM OR PLASMA 57 U/L 40 - 150 09/25 Specimen Type: PLASMA No comment entered. Ordering Provider: TY PAULSON Report Released Date/Time : May 02, 2024 11:43 AM Reporting Lab: [place] [facility] [address] [place] [address] 8 Performin g Lab: [place] [facility] [address] [place] [address] 8 [place] [facility] COMPREHENSI VE METABOLIC PANEL ASPARTATE AMINOTRANSFER ASE [ENZYMATIC ACTIVITY/VOLU ME] IN SERUM OR PLASMA 20 U/L 5 - 34 09/25 Specimen Type: PLASMA No comment entered. Ordering Provider: TY PAULSON Report Released Date/Time : May 02, 2024 11:43 AM Reporting Lab: [place] [facility] [address] [place] [address] 8 Performin g Lab: [place] [facility] [address] [place] [address] 8 [facility] COMPREHENSI VE METABOLIC PANEL ALANINE AMINOTRANSFER ASE [ENZYMATIC ACTIVITY/VOLU ME] IN SERUM OR PLASMA 17 U/L 8 - 40 09/25 Specimen Type: PLASMA No comment entered. Ordering Provider: TY PAULSON Report Released Date/Time : May 02, 2024 11:43 AM Reporting Lab: [place] [facility] [address] [place] [address] 8 Performin g Lab: [place] [facility] [address] [place] [address] 8 [facility] COMPREHENSI VE METABOLIC PANEL GLOMERULAR FILTRATION RATE/1.73 SQ M.PREDICTED [VOLUME RATE/AREA] IN SERUM, PLASMA OR BLOOD BY CREATININE-BA SED FORMULA (CKD-EPI 2020) 82 09/25 Specimen Type: PLASMA No comment entered. Ordering Provider: TY PAULSON Report Released Date/Time : May 02, 2024 11:43 AM Reporting Lab: [place] [facility] [address] [place] [address] 8 Performin g Lab: [place] [facility] [address] [place] [address] 8 [facility] B12 COBALAMIN (VITAMIN B12) [MASS/VOLUME] IN SERUM OR PLASMA 403 pg/mL 213 - 816 09/25 Specimen Type: SERUM No comment entered. Ordering Provider: TY PAULSON Report Released Date/Time : May 02, 2024 11:43 AM Reporting Lab: [place] [facility] [address] [place] [address] Performin g Lab: [place] [facility] [address] [place] [address] 8 [facility] HGA1C HEMOGLOBIN A1C/HEMOGLOBI N.TOTAL IN BLOOD 5.8 4.0 - 6.0 09/25 Specimen Type: BLOOD No comment entered. Ordering Provider: TY PAULSON Report Released Date/Time : May 02, 2024 11:43 AM Reporting Lab: [place] [facility] [address] [place] [address] 8 Performin g Lab: [place] [facility] [address] [place] [address] 8 [facility] FOLATE (PB) FOLATE [MASS/VOLUME] IN SERUM OR PLASMA 15.7 ng/mL 7 - 20 09/25 Specimen Type: SERUM No comment entered. Ordering Provider: TY PAULSON Report Released Date/Time : May 02, 2024 11:43 AM Reporting Lab: [place] [facility] [address] [place] [address] Performin g Lab: [place] [facility] [address] [place] [address] 8 [facility] CBC LEUKOCYTES [#/VOLUME] IN BLOOD BY AUTOMATED COUNT 7.5 10*3/u L 3.6 - 11.2 09/25 Specimen Type: BLOOD No comment entered. Ordering Provider: TY PAULSON Report Released Date/Time : May 02, 2024 11:43 AM Reporting Lab: [place] [facility] [address] [place] [address] 8 Performin g Lab: [place] [facility] [address] [place] [address] 8 [facility] CBC ERYTHROCYTES [#/VOLUME] IN BLOOD BY AUTOMATED COUNT 4.90 10*6/u L 4.10 - 5.70 09/25 Specimen Type: BLOOD No comment entered. Ordering Provider: TY PAULSON Report Released Date/Time : May 02, 2024 11:43 AM Reporting Lab: [place] [facility] [address] [place] [address] 8 Performin g Lab: [place] [facility] [address] [place] [address] 8 [facility] CBC HEMOGLOBIN [MASS/VOLUME] IN BLOOD 13.9 g/dL 13.1 - 16.8 09/25 Specimen Type: BLOOD No comment entered. Ordering Provider: TY PAULSON Report Released Date/Time : May 02, 2024 11:43 AM Reporting Lab: [place] [facility] [address] [place] [address] 8 Performin g Lab: [place] [facility] [address] [place] [address] 8 [facility] CBC HEMATOCRIT [VOLUME FRACTION] OF BLOOD 42.3 38.2 - 48.4 09/25 Specimen Type: BLOOD No comment entered. Ordering Provider: TY PAULSON Report Released Date/Time : May 02, 2024 11:43 AM Reporting Lab: [place] [facility] [address] [place] [address] 8 Performin g Lab: [place] [facility] [address] [place] [address] 8 [facility] CBC MCV [ENTITIC VOLUME] BY AUTOMATED COUNT 86.3 fL 80.0 - 100.0 09/25 Specimen Type: BLOOD No comment entered. Ordering Provider: TY PAULSON Report Released Date/Time : May 02, 2024 11:43 AM Reporting Lab: [place] [facility] [address] [place] [address] 8 Performin g Lab: [place] [facility] [address] [place] [address] 8 [facility] CBC MCH [ENTITIC MASS] BY AUTOMATED COUNT 28.4 pg 27.0 - 34.0 09/25 Specimen Type: BLOOD No comment entered. Ordering Provider: TY PAULSON Report Released Date/Time : May 02, 2024 11:43 AM Reporting Lab: [place] [facility] [address] [place] [address] 8 Performin g Lab: [place] [facility] [address] [place] [address] 8 [facility] CBC MCHC [MASS/VOLUME] BY AUTOMATED COUNT 32.9 g/dL 33.0 - 36.0 09/25 L Specimen Type: BLOOD No comment entered. Ordering Provider: TY PAULSON Report Released Date/Time : May 02, 2024 11:43 AM Reporting Lab: [place] [facility] [address] [place] [address] 8 Performin g Lab: [place] [facility] [address] [place] [address] 8 [facility] CBC PLATELETS [#/VOLUME] IN BLOOD BY AUTOMATED COUNT 135 10*3/u L 150 - 400 09/25 L Specimen Type: BLOOD No comment entered. Ordering Provider: TY PAULSON Report Released Date/Time : May 02, 2024 11:43 AM Reporting Lab: [place] [facility] [address] [place] [address] 8 Performin g Lab: [place] [facility] [address] [place] [address] 8 [facility] CBC PLATELET MEAN VOLUME [ENTITIC VOLUME] IN BLOOD BY AUTOMATED COUNT 10.0 fL 7.5 - 11.2 09/25 Specimen Type: BLOOD No comment entered. Ordering Provider: TY PAULSON Report Released Date/Time : May 02, 2024 11:43 AM Reporting Lab: [place] [facility] [address] [place] [address] 8 Performin g Lab: [place] [facility] [address] [place] [address] 8 [facility] CBC ERYTHROCYTE DISTRIBUTION WIDTH [RATIO] BY AUTOMATED COUNT 14.4 11.8 - 15.1 09/25 Specimen Type: BLOOD No comment entered. Ordering Provider: TY PAULSON Report Released Date/Time : May 02, 2024 11:43 AM Reporting Lab: [place] [facility] [address] [place] [address] 8 Performin g Lab: [place] [facility] [address] [place] [address] 8 [facility] CBC LYMPHOCYTES/1 00 LEUKOCYTES IN BLOOD BY AUTOMATED COUNT 29.9 09/25 Specimen Type: BLOOD No comment entered. Ordering Provider: TY PAULSON Report Released Date/Time : May 02, 2024 11:43 AM Reporting Lab: [place] [facility] [address] [place] [address] 8 Performin g Lab: [place] [facility] [address] [place] [address] 8 [facility] CBC MONOCYTES/100 LEUKOCYTES IN BLOOD BY AUTOMATED COUNT 7.5 09/25 Specimen Type: BLOOD No comment entered. Ordering Provider: TY PAULSON Report Released Date/Time : May 02, 2024 11:43 AM Reporting Lab: [place] [facility] [address] [place] [address] 8 Performin g Lab: [place] [facility] [address] [place] [address] 8 [facility] CBC NEUTROPHILS/1 00 LEUKOCYTES IN BLOOD BY AUTOMATED COUNT 58.1 09/25 Specimen Type: BLOOD No comment entered. Ordering Provider: TY PAULSON Report Released Date/Time : May 02, 2024 11:43 AM Reporting Lab: [place] [facility] [address] [place] [address] 8 Performin g Lab: [place] [facility] [address] [place] [address] 8 [facility] CBC EOSINOPHILS/1 00 LEUKOCYTES IN BLOOD BY AUTOMATED COUNT 2.9 09/25 Specimen Type: BLOOD No comment entered. Ordering Provider: TY PAULSON Report Released Date/Time : May 02, 2024 11:43 AM Reporting Lab: [place] [facility] [address] [place] [address] 8 Performin g Lab: [place] [facility] [address] [place] [address] 8 [facility] CBC BASOPHILS/100 LEUKOCYTES IN BLOOD BY AUTOMATED COUNT 0.4 09/25 Specimen Type: BLOOD No comment entered. Ordering Provider: TY PAULSON Report Released Date/Time : May 02, 2024 11:43 AM Reporting Lab: [place] [facility] [address] [place] [address] 8 Performin g Lab: [place] [facility] [address] [place] [address] 8 [facility] CBC LYMPHOCYTES [#/VOLUME] IN BLOOD BY AUTOMATED COUNT 2.24 10*3/u L 0.77 - 4.50 09/25 Specimen Type: BLOOD No comment entered. Ordering Provider: TY PAULSON Report Released Date/Time : May 02, 2024 11:43 AM Reporting Lab: [place] [facility] [address] [place] [address] 8 Performin g Lab: [place] [facility] [address] [place] [address] 8 [facility] CBC MONOCYTES [#/VOLUME] IN BLOOD BY AUTOMATED COUNT 0.56 10*3/u L 0.19 - 0.8 09/25 Specimen Type: BLOOD No comment entered. Ordering Provider: TY PAULSON Report Released Date/Time : May 02, 2024 11:43 AM Reporting Lab: [place] [facility] [address] [place] [address] Performin g Lab: [place] [facility] [address] [place] [address] 8 [facility] CBC NEUTROPHILS [#/VOLUME] IN BLOOD BY AUTOMATED COUNT 4.34 10*3/u L 2.10 - 8.00 09/25 Specimen Type: BLOOD No comment entered. Ordering Provider: TY PAULSON Report Released Date/Time : May 02, 2024 11:43 AM Reporting Lab: [place] [facility] [address] [place] [address] 8 Performin g Lab: [place] [facility] [address] [place] [address] 8 [facility] CBC EOSINOPHILS [#/VOLUME] IN BLOOD BY AUTOMATED COUNT 0.22 10*3/u L 0.00 - 0.60 09/25 Specimen Type: BLOOD No comment entered. Ordering Provider: TY PAULSON Report Released Date/Time : May 02, 2024 11:43 AM Reporting Lab: [place] [facility] [address] [place] [address] 8 Performin g Lab: [place] [facility] [address] [place] [address] 8 [facility] CBC BASOPHILS [#/VOLUME] IN BLOOD BY AUTOMATED COUNT 0.03 10*3/u L 0.00 - 0.20 09/25 Specimen Type: BLOOD No comment entered. Ordering Provider: TY PAULSON Report Released Date/Time : May 02, 2024 11:43 AM Reporting Lab: [place] [facility] [address] [place] [address] Performin g Lab: [place] [facility] [address] [place] [address] [facility] CBC NUCLEATED ERYTHROCYTES/ 100 LEUKOCYTES [RATIO] IN BLOOD BY AUTOMATED COUNT 0.3 0 - 0 09/25 H Specimen Type: BLOOD No comment entered. Ordering Provider: TY PAULSON Report Released Date/Time : May 02, 2024 11:43 AM Reporting Lab: [place] [facility] [address] [place] [address] Performin g Lab: [place] [facility] [address] [place] [address] [facility] CBC IMMATURE GRANULOCYTES/ 100 LEUKOCYTES IN BLOOD BY AUTOMATED COUNT 1.2 09/25 Specimen Type: BLOOD No comment entered. Ordering Provider: TY PAULSON Report Released Date/Time : May 02, 2024 11:43 AM Reporting Lab: [place] [facility] [address] [place] [address] Performin g Lab: [place] [facility] [address] [place] [address] [facility] CBC IMMATURE GRANULOCYTES [#/VOLUME] IN BLOOD BY AUTOMATED COUNT 0.09 10*3/u L 0.00 - 0.05 09/25 H Specimen Type: BLOOD No comment entered. Ordering Provider: TY PAULSON Report Released Date/Time : May 02, 2024 11:43 AM Reporting Lab: [place] [facility] [address] [place] [address] Performin g Lab: [place] [facility] [address] [place] [address] [facility] DIRECT LDL (MA-PB) CHOLESTEROL IN LDL [MASS/VOLUME] IN SERUM OR PLASMA BY DIRECT ASSAY 9.7 mg/dL 0 - 99.9 04/25 Specimen Type: PLASMA No comment entered. Ordering Provider: TY PAULSON Report Released Date/Time : Dec 26, 2023 07:49 AM Reporting Lab: [place] [facility] [address] [place] [address] Performin g Lab: [place] [facility] [address] [place] [address] [facility] CHOLESTEROL PANEL (PB) CHOLESTEROL [MASS/VOLUME] IN SERUM OR PLASMA 75 mg/dL 0 - 200 04/25 Specimen Type: PLASMA No comment entered. Ordering Provider: TY PAULSON Report Released Date/Time : Dec 26, 2023 07:49 AM Reporting Lab: [place] [facility] [address] [place] [address] Performin g Lab: [place] [facility] [address] [place] [address] [facility] CHOLESTEROL PANEL (PB) TRIGLYCERIDE [MASS/VOLUME] IN SERUM OR PLASMA 142 mg/dL 0 - 150 04/25 Specimen Type: PLASMA No comment entered. Ordering Provider: TY PAULSON Report Released Date/Time : Dec 26, 2023 07:49 AM Reporting Lab: [place] [facility] [address] [place] [address] Performin g Lab: [place] [facility] [address] [place] [address] [facility] CHOLESTEROL PANEL (PB) CHOLESTEROL IN LDL [MASS/VOLUME] IN SERUM OR PLASMA BY CALCULATION -0.4 mg/dL 04/25 Specimen Type: PLASMA No comment entered. Ordering Provider: TY PAULSON Report Released Date/Time : Dec 26, 2023 07:49 AM Reporting Lab: [place] [facility] [address] [place] [address] Performin g Lab: [place] [facility] [address] [place] [address] [facility] [place] [facility] CHOLESTEROL PANEL (PB) CHOLESTEROL IN HDL [MASS/VOLUME] IN SERUM OR PLASMA 47.0 mg/dL 40 04/25 H Specimen Type: PLASMA No comment entered. Ordering Provider: TY PAULSON Report Released Date/Time : Dec 26, 2023 07:49 AM Reporting Lab: [place] [facility] [address] [place] [address] Performin g Lab: [place] [facility] [address] [place] [address] [place] [facility] CHOLESTEROL PANEL (PB) CHOLESTEROL IN HDL/CHOLESTER OL.TOTAL [MASS RATIO] IN SERUM OR PLASMA 62.7 25 04/25 Specimen Type: PLASMA No comment entered. Ordering Provider: TY PAULSON Report Released Date/Time : Dec 26, 2023 07:49 AM Reporting Lab: [place] [facility] [address] [place] [address] Performin g Lab: [place] [facility] [address] [place] [address] [place] [facility] Vital Signs Combined list of inpatient and outpatient Vital Signs from Department of Defense and Veterans Affairs, ranging from 12 months to all on record, depending upon the facility. Vital Sign Value Date Comments Source SYSTOLIC BLOOD PRESSURE 129 11/07/2024 13:40:00 [place] [facility] DIASTOLIC BLOOD PRESSURE 68 11/07/2024 13:40:00 [place] [facility] TEMPERATURE 97.8 11/07/2024 13:40:00 [place] [facility] PULSE 73 11/07/2024 13:40:00 [place] [facility] SYSTOLIC BLOOD PRESSURE 124 10/02/2024 08:40:00 [place] [facility] DIASTOLIC BLOOD PRESSURE 73 10/02/2024 08:40:00 [place] [facility] TEMPERATURE 98.1 10/02/2024 08:40:00 [place] [facility] PULSE 78 10/02/2024 08:40:00 [place] [facility] SYSTOLIC BLOOD PRESSURE 134 05/02/2024 13:06:53 [place] [facility] DIASTOLIC BLOOD PRESSURE 78 05/02/2024 13:06:53 [facility] PULSE OXIMETRY 95 05/02/2024 13:06:53 [facility] [place] [facility] WEIGHT 200.4 05/02/2024 13:06:53 [place] [facility] BMI 31 kg/m2 05/02/2024 13:06:53 [place] [facility] PAIN 3 05/02/2024 13:06:53 [place] [facility] TEMPERATURE 97.7 05/02/2024 13:06:53 [place] [facility] PULSE 72 05/02/2024 13:06:53 [place] [facility] RESPIRATION 20 05/02/2024 13:06:53 [place] [facility] SYSTOLIC BLOOD PRESSURE 135 01/26/2024 11:20:00 [place] [facility] DIASTOLIC BLOOD PRESSURE 89 01/26/2024 11:20:00 [place] [facility] TEMPERATURE 97.7 01/26/2024 11:20:00 [place] [facility] PULSE 58 01/26/2024 11:20:00 [place] [facility] SYSTOLIC BLOOD PRESSURE 116 2023 14:40:00 [place] [facility] DIASTOLIC BLOOD PRESSURE 64 2023 14:40:00 [place] [facility] TEMPERATURE 98 2023 14:40:00 [place] [facility] PULSE 76 2023 14:40:00 [facility] Encounters Combined list of: 1) Encounters from Department of Veterans Affairs facilities going backup to the last 18 months, not all VA inpatient encounters are included; 2) Encounters from the Department of [facility] facilities going backup to 280 months. Location Location Details Encounter Type Encounter Number Reason For Visit Attending Provider ADM Date DC Date Status Disposition Source [facility] Outpatient Encounter [id number] 05/17 [facility] Outpatient Encounter [id number] Diagnos is: ICD-10- CM E78.2 Mixed hyperli pidemia Scott PAULSON W 05/17 [facility] Outpatient Encounter [id number] MELONY FIELDS 05/17 [facility] Outpatient Encounter [id number] 05/18 [facility] VITAMIN B12 INJECTION [id number] Diagnos is: ICD-10- CM E55.9 Vitamin D deficie ncy, unspeci fied NANCY SIMPSON S 05/18 [facility] [place] [facility] QNHP OL DIG ASSMT&MGMT 5-10 [id number] [id number] Diagnos is: ICD-10- CM E78.2 Mixed hyperli pidemia MELISSABIBIANA V 05/19 [place] [facility] Outpatient Encounter [id number] 05/20 [facility] Outpatient Encounter [id number] 05[facility]20 [facility] En[facility] [id number] 05/23 [facility] Outpatient Encounter [id number] Diagnos is: ICD-10- CM E78.2 Mixed hyperli pidemia Scott PAULSON W 05/24 [facility] Outpatient Encounter [id number] 05/26 [facility] Outpatient Encounter [id number] 05/27 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) SHANE GIBSON ÁNGEL 06/07 [facility] Outpatient Encounter [id number] MELONY FIELDS 06/07 [facility] Outpatient Encounter [id number] 06[facility]10 [facility] En[facility] [id number] 06/13 [facility] En[facility] [id number] 06/13 [facility] Outpatient Encounter [id number] 06/13 [facility]P NEW LOW 30 MIN [id number] Diagnos is: ICD-10- CM M99.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 ANEL GORE 06/14 [facility] Outpatient Encounter [id number] MELONY FIELDS 06/14 [facility] [place] MANJ 3-4 [place] [id number] Diagnos is: ICD-10- CM M99.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 ANEL GORE 06/21 [facility] OFF/OP EST SEPTEMBER X REQ PHY/QHP [id number] Diagnos is: ICD-10- CM D51.9 Vitamin B12 deficie ncy anemia, unspeci fied CALVIN,ANG VESTA S 06/21 [facility] [place] [facility] HC PRO PHONE CALL 21-30 MIN [id number] [id number] Diagnos is: ICD-10- CM M51.36 Other interve rtebral disc degener ation, lumbar region ARIELAHO TYSONIS 06/22 [place] [facility] Outpatient Encounter [id number] 06/23 [facility] [place] MANJ 3-4 [place] [id number] Diagnos is: ICD-10- CM M99.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 ANEL GORE 07/13 [facility] En[facility] [id number] Diagnos is: ICD-10- CM E78.2 Mixed hyperli pidemia [facility] [place]-4 [place] [id number] Diagnos is: ICD-10- CM M99.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 ANEL GORE 07/18 [facility] [place] [facility] MTMS BY PHARM EST 15 MIN [id number] Diagnos is: ICD-10- CM M51.36 Other interve rtebral disc degener ation, lumbar region ARIELANAT TYSON 07/[address] [place] [facility] [place] MANJ 3-4 [place] [id number] Diagnos is: ICD-10- CM M54.2 Cervica lgia ANEL GORE E 08/01 [facility] Outpatient Encounter [id number] 08/08 [facility] [place] MANJ 3-4 [place] [id number] Diagnos is: ICD-10- CM M99.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 ANEL GORE 08/09 [facility] [place] [facility] MTMS BY PHARM EST 15 MIN [id number] [id number] Diagnos is: ICD-10- CM M51.36 Other interve rtebral disc degener ation, lumbar region ARIELANAT TYSON 08/[address] [place] 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 SAVAGE Garcia CCA E 09/07 [facility] Outpatient Encounter [id number] 09/18 [facility] Outpatient Encounter [id number] 09/19 [facility] Outpatient Encounter [id number] Diagnos is: ICD-10- CM E78.2 Mixed hyperli pidemia Scott PAULSON 09/20 [facility] [place] [facility] Outpatient Encounter [id number] 09/27 [place] [facility] Outpatient Encounter [id number] 09/28 [facility] Outpatient Encounter [id number] 10/03 [facility] 3-4 [place] [id number] Diagnos is: ICD-10- CM M99.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 ANEL GORE LAS E 10/04 [facility] Outpatient Encounter [id number] 10/17 [facility] [place] [facility] Outpatient Encounter [id number] 10/17 [place] [facility]-4 [place] [id number] Diagnos is: ICD-10- CM M99.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 ANEL GORE E 10/18 [facility] Outpatient Encounter [id number] 10/26 [facility] [place] [facility] Outpatient Encounter [id number] 10/31 [place] [facility] [place] [facility] MTMS BY PHARM EST 15 MIN [id number] [id number] Diagnos is: ICD-10- CM M51.36 Other interve rtebral disc degener ation, lumbar region NAT TITUS 11/07 [place] [facility] [place] [facility] Outpatient Encounter [id number] 11/15 [place] [facility] Outpatient Encounter [id number] 11/17 [facility] [place] [facility] MTMS BY PHARM ADDL 15 MIN [id number] Diagnos is: ICD-10- CM E78.2 Mixed hyperli pidemia Scott PAULSON W 11/21 [place] [facility] [place] [facility] [place] MANJ 3-4 [place] [id number] Diagnos is: ICD-10- CM M99.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 ANEL GORE E 11/29 [place] [facility] [place] [facility] MTMS BY PHARM ADDL 15 MIN [id number] Diagnos is: ICD-10- CM E78.2 Mixed hyperli pidemia Scott PAULSON W 12/15 [place] [facility] [place] [facility] MTMS BY PHARM ADDL 15 MIN [id number] Diagnos is: ICD-10- CM E78.2 Mixed hyperli pidemia Scott PAULSON MALIK W 12/25 [place] [facility] [place] [facility] [place] MANJ 3-4 [place] [id number] [id number] Diagnos is: ICD-10- CM M99.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 ANEL GORE E 12/26 [place] [facility] [place] [facility] MTMS BY PHARM EST 15 MIN [id number] [id number] Diagnos is: ICD-10- CM M51.36 Other interve rtebral disc degener ation, lumbar region NAT TITUS 01[facility] [id number] 01/02 [facility] [id number] 01/02 [facility] Encounter [id number] [id number] 01/17 [facility] [place] MANJ 3-4 [place] [id number] [id number] Diagnos is: ICD-10- CM M99.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 ANEL GORE 01/25 [facility] Outpatient Encounter [id number] [id number] 02/06 [facility] [place] [facility] Out[facility] Encounter [id number] [id number] 03/08 [place] [facility] Outpatient Encounter [id number] [id number] 03/22 [facility] Encounter [id number] [id number] 03/22 [facility] Encounter [id number] 03/28 [facility] [place] [facility] MTMS BY PHARM EST 15 MIN [id number] [id number] Diagnos is: ICD-10- CM M25.569 Pain in unspeci fied knee NAT TITUS 03/28 [place] [facility] Outpatient Encounter [id number] 04/02 [facility] Outpatient Encounter [id number] 04/10 [facility] Outpatient Encounter [id number] 04/24 [facility] Outpatient Encounter [id number] [id number] 04/24 [facility] ADMN SARSCOV2 VACC 1 DOSE [id number] [id number] Diagnos is: ICD-10- CM Z23 Encount er for immuniz ation PRIYANKAMITZI 04/25 [facility] MTMS BY PHARM ADDL 15 MIN [id number] [id number] Diagnos is: ICD-10- CM E78.2 Mixed hyperli pidemia Scott PAULSON W 05/02 [facility] Outpatient Encounter [id number] 05/02 [facility] OFFICE O/P EST MOD 30 MIN [id number] [id number] Diagnos is: ICD-10- CM Z00.01 Encount er for general adult medical exam w abnorma l finding s MELONY FIELDS 05/02 [facility] FEE [id number] Diagnos is: ICD-10- CM Z00.01 Encount er for general adult medical exam w abnorma l finding s MELONY FIELDS 05/02 [facility] Outpatient Encounter [id number] 05/03 [facility] Outpatient Encounter [id number] 05/04 [facility] Outpatient Encounter [id number] [id number] 05/04 [facility] Outpatient Encounter [id number] 05/16 [facility] Outpatient Encounter [id number] 05/17 [facility] Outpatient Encounter [id number] [id number] 06/13 [facility] REMOVE IMPACTED EAR WAX UNI [id number] [id number] Diagnos is: ICD-10- CM H61.23 Impacte d rohit pool al MITZI MATHEW 09/25 [facility] Outpatient Encounter [id number] 10/01 [facility] [place] MANJ 3-4 [place] [id number] Diagnos is: ICD-10- CM M99.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 ANEL GORE 10/02 [facility] Outpatient Encounter [id number] 10/03 [facility] MTMS BY PHARM ADDL 15 MIN [id number] [id number] Diagnos is: ICD-10- CM J44.9 Chronic obstruc tive pulmona ry disease , unspeci fied Scott PAULSON W 10/04 [facility] Outpatient Encounter [id number] [id number] 10/15 [facility]AC[facility] FEE [id number] [id number] Diagnos is: ICD-10- CM H93.13 Tinnitu s, bilater al GRAVES,IRAIDA SHILPA A 10/16 [facility] [place] [facility] HERMILA TEST PURE TONE [id number] [id number] Diagnos is: ICD-10- CM H93.13 Tinnitu s, bilater al GRAVES,IRAIDA SHILPA A 10/16 [place] [facility]-4 [place] [id number] [id number] Diagnos is: ICD-10- CM M99.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 ANEL GORE E 10/16 [facility] Outpatient Encounter [id number] 10/17 [facility] Encounter [id number] 10/22 [facility] Outpatient Encounter [id number] [id number] 11/07 [facility] [place] MANJ 3-4 [place] [id number] [id number] Diagnos is: ICD-10- CM M99.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 ANEL GORE E 11/07 [facility] Outpatient Encounter [id number] 11/07 [facility] [place] [facility] [place] ADMIN [id number] [id number] MELONY FIELDS Ronak 11/07 [place] [facility] Social History Combined list of available smoking, tobacco, and other social history from Department of Defense and Veterans Affairs facilities. Social History Type Response Date Comment Sourc e Tobacco smoking status NHIS VA-TOBACCO USE FORMER CIGARETTES 11/07/2024 [place] [facility] History of tobacco use VA-TOBACCO USE FORMER OTHER TYPE 11/07/2024 [place] [facility] History of tobacco use VA-TOBACCO FORMER USER 05/03/2023 [facility] History of tobacco use VA-TOBACCO FORMER USER 12/31/2022 [facility] History of tobacco use VA-TOBACCO FORMER USER 12/29/2021 [facility] History of tobacco use VA-TOBACCO FORMER USER 02/05/2021 [facility] History of tobacco use VA-TOBACCO FORMER USER 2019 [facility] History of tobacco use VA-TOBACCO QUIT 15 YRS OR MORE 09/25/2018 [facility] History of tobacco use QUIT TOBACCO >7 YEARS AGO 04/11/2017 [facility] History of tobacco use QUIT TOBACCO >12 MO and <7 YRS AGO 05/20/2016 [facility] History of tobacco use TOBACCO COUNSELING 07/28/2015 [facility] History of tobacco use LIFETIME NON-USER OF TOBACCO 07/25/2015 [facility] History of tobacco use LIFETIME NON-USER OF TOBACCO 09/26/2014 [facility] History of tobacco use QUIT TOBACCO >7 YEARS AGO 03/12/2014 [facility] History of tobacco use TOBACCO COUNSELING 12/24/2013 [facility] History of tobacco use QUIT TOBACCO >12 MO and <7 YRS AGO 06/11/2013 [facility] History of tobacco use CURRENT TOBACCO USER 07/27/2012 [facility] History of tobacco use CURRENT TOBACCO USER 07/16/2011 [facility] History of tobacco use QUIT TOBACCO >7 YEARS AGO 08/21/2010 [facility] Plan of Care List of future care activities from Department of Veterans Affairs facilities. Additional future care activities may be listed in the Assessment and Plan section. Date/Time Care Activity Care Activity Detail Facili ty 11/19/2024 AMBULATORY - MEDICINE AMBULATORY - MEDICI [facility] Advance Directives List of completed, amended, or rescinded Advance Directives on record at Department of [facility] facilities. An actual copy of the Directive is not included. Date Advance Directive Provider Source 09/26/2014 ADVANCE DIRECTIVE DISCUSSION GRACIELA YUSUF RA [facility] 04/24/2014 ADVANCE DIRECTIVE DISCUSSION GRACIELA YUSUF RA [facility] 01/01/2014 ADVANCE DIRECTIVE DISCUSSION DAVID RODRIGUEZ [facility] 09/28/2013 ADVANCE DIRECTIVE DISCUSSION LENNY MACHUCA [facility] 08/23/2013 ADVANCE DIRECTIVE DISCUSSION WILLIAM ENG [facility]
[2024-11-13 19:02] VITALS: BP 144/79; PULSE 81; RESP 18; TEMP 36.7; O2SAT 95; BMI 31.0
--- OUTSIDE RECORDS SUMMARY | 2024-11-13 19:06 | XMS_ITS | Encounter Summary ---
Author Name [facility] [place] [facility] Address [address] [place] [address] Care Team Providers Care Java J2Ee Software Engineer Name Role Phone RAJAN PRUETT Primary Care Provider UnavailAARON Watt Primary Care Provider UnavailMAXIME Earl Primary Care Provider Unavaila MELONY Sewell Primary Care Provider Unavailabl ANN Cee Primary Care Provider Unavailabl e CONCEPCIÓN, ESTRELLA [...] Summers's Name Patient's Relationship to Policy [facility] MEDICARE [facility] (WNR) May 16, 2023 [id number] ERICKA CHANDLER PATIENT AARP [facility] (WNR) MEDICARE [facility]ANTAGE [facility] (R) May 16, 2022 [id number] ERICKA CHANDLER PATIENT CARE [facility]PROVE [facility]US [facility] (WNR) MEDICARE AD[facility]ANTAGE [facility] (R) May 16, 2015 [id number] [phone] ERICKA CHANDLERA [facility] (WNR) MEDICARE [facility] (WNR) Jun 16, 2019 [id number] ERICKA CHANDLER [facility] (WNR) MEDICARE [facility] (WNR) Jun 16, 2019 [id number] [phone] ERICKA CHANDLER PATIENT MEDICARE PART D (WNR) MEDICARE (M) PART D September 13, 2018 PART D [id number] ERICKA CHANDLER PATIENT MEDICARE PART D (WNR) MEDICARE (M) PART D September 13, 2018 PART D [id number] [phone] ERICKA CHANDLER PATIENT MEDICARE PART D (WNR) MEDICARE (M) PART D May 16, 2015 PART D [id number] ERICKA CHANDLER PATIENT MEDICARE PART D (WNR) MEDICARE (M) PART D May 16, 2015 PART D [id number] [phone] ERICKA CHANDLER PATIENT MEDICARE PART D (WNR) MEDICARE (M) PART D May 16, 2015 PART D [id number] ERICKA CHANDLER [facility] (WNR) MEDICARE [facility] (WNR) Feb 13, 2021 [id number] ERICKA CHANDLER [facility] (WNR) MEDICARE [facility] (WNR) Feb 13, 2021 [id number] [phone] ERICKA CHANDLER PATIENT Selected Encounter This section includes the information on record at [facility] for the Encounter. Date/Time Encounter Type Encounter Description Reason Pro vider Source I[facility] Encounter Template Text not used by [facility] Advance Directives: All historical and current Section Date Range: From patient's date of to the date document was created. This section includes ALL of a patient's completed or amended [place] Advance and Rescinded Directives. The entries below indicate that a directive exists for the patient, but an actual copy is not included with this document. The data comes from all [place] facilities. Date Advance Directives Provider Source September 26, 2014 ADVANCE DIRECTIVE DISCUSSION GRACIELA YUSUF [facility] Apr 24, 2014 ADVANCE DIRECTIVE DISCUSSION GRACIELA [...]
--- OUTSIDE RECORDS SUMMARY | 2024-11-13 19:08 | XMS_ITS | Clinical Summary ---
Author Organization [facility] Based Address [facility] [place] [address] Care Team Providers Care Operating Systems Programmer Name Role Phone Unavailable Primary Care Provider Unavailabl e Medications alirocumab 75 mg/mL Pen Injector 75 mg by Injection route. 4 Active OMEGA-3 FATTY ACIDS-FISH OIL ORAL Take 500 mg by mouth. Active tamsulosin (FLOMAX) 0.4 mg capsule Take 0.4 mg by mouth daily. 3 Active atorvastatin (LIPITOR) 80 mg tablet Take 80 mg by mouth daily. 3 Active ranolazine (RANEXA) 1,000 mg Extended Release 12 hour tablet Take 1,000 mg by mouth every 12 hours. 3 Active multivitamin (DAILY-DEANGELO) tablet Take 1 Tablet by mouth daily. Without Vitamin K Active omeprazole (PriLOSEC) 20 mg Capsule, Delayed Release(E.C.) Take 20 mg by mouth daily. Active metoprolol tartrate (LOPRESSOR) 50 mg tablet Take 50 mg by mouth 2 times daily. 3 Active OTHER Take by mouth daily. Vitamin D3 Active montelukast (SINGULAIR) 10 mg tablet Take 10 mg by mouth daily. 3 Active aspirin (ECOTRIN EC) 81 mg Tablet, Delayed Release (E.C.) Take 1 Tablet by mouth daily. 3 Active loratadine (CLARITIN) 10 mg tablet Take 10 mg by mouth daily. 3 Active clopidogreL (PLAVIX) 75 mg Tablet take one tablet by mouth once a day 30 Tablet 6 4 Active Active Problems Problem Noted Date Diagnosed Date Coronary artery disease due to lipid rich plaque 05/26/2023 Pericardial mass 05/26/2023 History of coronary artery bypass graft x 2 05/16 Dyslipidemia 05/26/2023 Essential hypertension 05/26/2023 Social History Tobacco Use Types Packs/Day Years Used Date Smoking Tobacco: Never Assessed Sex and Gender Information Value Date Recorded Sex Assigned at Not on file Legal Sex Male 8:06 AM 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 Gender Identity Not on file Sexual Orientation Not on file Last Filed Vital Signs Vital Sign Reading Time Taken Comments Blood Pressure 108/58 05/26/2023 11:05 AM 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 Pulse 65 05/26/2023 11:05 AM 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 Temperature - - Respiratory Rate - - Oxygen Saturation - - Inhaled Oxygen Concentration - - Weight 89.4 kg (197 lb) 05/26/2023 11:05 AM 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 Height 170.2 cm (5' 7 ) 05/26/2023 11:05 AM 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 Body Mass Index 30.85 05/26/2023 11:05 AM 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 Plan of Treatment Health Maintenance Due Date Last Done Comments COLORECTAL SCREENING 12/28/1999 Colorectal Cancer Screening 12/28/1999 FIT-DNA Q 3 years 12/28/1999 FIT/FOBT Q 1 year 12/28/1999 Flex Sig/CT Colonography Q 5 years 12/28/1999 RSV VACCINE (60+ or ) (1 - Risk 60-74 years 1-dose series) 2014 ZOSTER VACCINE (2 of 2) 08/26/2022 07/01/2022 INFLUENZA VACCINE (#1) 2023 , 03/02/2022, 02/05/2021, Additional history exists PNEUMOCOCCAL VACCINE 50+ YEA RS (3 of 3 - PCV20 or PCV21) 02/05/2026 02/05/2021, 05/24/2014 DTAP/TDAP/TD VACCINES (3 - T d or Tdap) 05/31/2032 05/31/2022, 05/24/2014, 08/21/2010 Insurance [employer] DSNP [facility] [id number] [facility] OPTUM
--- OUTSIDE RECORDS SUMMARY | 2024-11-13 19:08 | XMS_ITS | Patient Health Record ---
Author Organization [facility] Address [address] [place] [address] Care Team Providers Care Director Of Construction Name Role Phone Terrance Gusman MD Primary Care Provider Jose Bradley Unavailable [phone] [place] Unavailable Unavailable Allergies No Known Allergies Reason For Referral Reason 04/18/2024 CARD IOLOGY/ EVAL AND TREAT/ [facility] Diagnosis 1 Atherosclerosis of n ative coronary artery of [place] heart without angina pectoris (I25.10) Referring Provider First Name Radha Referring Provider Last Name [facility] Referring Provider Speciality Family Med icine Referred Organization [facility] Referred Provider Jose Gusman Referred Address [address] [place] [id number], Referral Priority Routine Medications Medication SIG (Take, Route, Frequency, Duration) Notes Start Date End Date Status Fish Oil 1000 MG 1 capsule Orally BID 08/03/2023 Active Omeprazole 40 MG 1 tablet 30 minutes before morning meal Orally BID 08/03/2023 Active DULoxetine HCl 60 MG 1 capsule Orally Once a day Active Furosemide 20 MG 1 tablet Orally Once a day for 30 days As needed Active Vitamin D3 50 MCG (1999 [place]) 1 tablet Orally Once a day Not-Taking Metoprolol Tartrate 25 MG 1 tablet with food Orally Twice a day for 90 days Active Atorvastatin Calcium 80 MG 1 tablet Orally Once a day Active Alirocumab 150 MG/ML as directed Subcutaneous once a month 08/03/2023 Active Aspirin 81 MG 1 tablet Orally Once a day Active Clopidogrel Bisulfate 75 MG 1 tablet Orally Once a day for 90 days Active Nitroglycerin 0.4 MG as directed Sublingual Active Multivitamin - 1 tablet Orally Once a day Active traMADol HCl 50 MG 1 tablet as needed Orally twice a day 08/03/2023 Active montelukast 10 MG Oral Tablet ORAL *Reorder from [facility] for eRx and Interaction Alerts* 08/12/2021 Active Tamsulosin HCl 0.4 MG 1 capsule Orally Once a day Active Loratadine 10 MG 1 tablet Orally Once a day Active Ranolazine ER 1000 MG 1 tablet Orally Twice a day Active Immunizations Vaccine Route Administration Date Status Comme nts Influenza (whole), CPT 68139 Inactive Unknown 01/14/2017 Administered Social History Tobacco Use: Social History Observation Description Date Details (start date - stop date) Former Smoker NA - NA xTobacco Use/Smoking Question Answer Notes Are you a former smoker How long has it been since you last smoked? > 10 years Alcohol Screen (Audit-C) Question Answer Notes Did you have a drink contain ing alcohol in the past year? Yes How often did you have a dri nk containing alcohol in the past year? 2 to 4 times a month (2 points) Points 2 Interpretation Negative Section Notes: alcohol - occionally caffeine - positive, 2-3 cups coffee alcohol - occionally caffeine - positive, 2-3 cups coffee alcohol - occionally caffeine - positive, 2-3 cups coffee Problems Problem Type SNOMED Code ICD Code Onset Dates Problem Status W/U Status Risk Notes Problem Mixed hyperlipidemia (978096125) Mixed hyperlipidemia (E78.2) Active confirmed Problem Shortness of breath (362162226) Shortness of breath (R06.02) Active confirmed Problem 380573441 Chronic GERD (K21.9) Active confirmed Problem Atherosclerosis of coronary artery without angina pectoris (773502257076250) Atherosclerosis of [place] coronary artery of [place] heart without angina pectoris (I25.10) Active confirmed Problem Post percutaneous transluminal coronary angioplasty (384943392) History of coronary artery stent placement (Z95.5) Active confirmed Problem Hypertension (82086670) Hypertension (I10) Active confirmed Problem 428269803 History of adenomatous polyp of colon (Z86.010) Active confirmed Problem Chest pain (83309741) Chest pain, unspecified (R07.9) Active confirmed [id number] 3-Snomed Descriptio n:Chest pain Problem Bypass stent graft present (336265605145470) Presence of aortocoronary bypass graft (Z95.1) Active confirmed [facility]-[id number] 3-Snomed Descriptio n:History of coronary artery bypass grafting Vital Signs Heart Rate 69 /min 04/18/2024 Height-cm 172.72 cm 04/18/2024 Oximetry 94 % 04/18/2024 Blood pressure diastolic 64 mm Hg 04/18/2024 Weight-kg 92.08 kg 04/18/2024 Height 67 in 04/18/2024 Blood pressure systolic 118 mm Hg 04/18/2024 Weight 203 lbs 04/18/2024 BMI 31.79 kg/m2 04/18/2024 Encounters Encounter Location Date Provider Diagnosis [address] [place] [address] 04/18/2024 Jose Gusman Atherosclerosis of [place] coronary artery of [place] heart without angina pectoris I25.10 ; Presence of aortocoronary bypass graft Z95.1 ; History of coronary artery stent placement Z95.5 ; Hypertension I10 and Mixed hyperlipidemia E78.[address] [place] [address] 02/20/2024 Lodiluna Gusman [address] [place] [address] 10/17/2024 Jose Gusman Assessments Encounter Date Diagnosis (ICD Code) Assessment Notes Treatment Notes Treatment Clinical Notes Section Notes 04/18/2024 Atherosclerosis of [place] coronary artery of [place] heart without angina pectoris (ICD-10 - I25.10) 04/18/2024 Presence of aortocoronary bypass graft (ICD-10 - Z95.1) [id number] omed Description:Hi story of coronary artery bypass grafting 04/18/2024 History of coronary artery stent placement (ICD-10 - Z95.5) 04/18/2024 Hypertension (ICD-10 - I10) 04/18/2024 Mixed hyperlipidemia (ICD-10 - E78.2) 04/18/2024 Other We will continue his current medical regimen at this point. I will plan on seeing him back in the office in 8 months. We will see him back sooner as symptoms warrant. Plan Of Treatment Next Appt Details Provider Name:Jose Ochoa Uzma, 0 01/08/2025 01:30:00 PM, [address] [place] [address], [place], [address], Insurance Providers Payer Name Payer Address Payer Phone Subscriber Number Group Number Insured Name Patient Relationship to Insured Coverage Start Date Coverage End Date [employer] [address] [place] [phone] [id number] Rey Crowder Self - patient is the insured [facility] Tier 1 Performance [address] [address] [place] [address] [id number] Rey Crowder Self - patient is the insured 2 Medical (General) History Medical History History ICD Code Benign prostatic hyperplasia Coronary arteriosclerosis Essential hypertension Hyperlipidemia Obstructive sleep apnea syndrome - has C PAP, does not wear Peptic ulcer Cataracts, both eyes Irregular heartbeats peripheral vascular disease covid vaccinated seasonal allergies COPD GERD Menieres Disease Covid vaccine - yes Surgical History Surgery Date(Month/Year) angiogram showing 3 vessel C AD. patent stents in the circumflex & posterior descending artery. patent LUZ to the LAD. 04/2021 Bilateral abdominal hernia repair 2019 eye surgery 04/17/24 CABG - [place], [place] 2009 Hospitalization History Reason Date(Month/Year) BH - IMPRESSION: 1. Angina p ectoris. Patient with known coronary artery disease. 2. Hypertension. 3. Mixed hyperlipidemia. 10/20/21 BH - Chest Pain 10/18/21 H around 2016 - possible angiogram [place] PREM Espinoza - multiple stenting - last was 2015 BH - Chest pain 04/30/21 BH - Dark Stool 12/04/21 BH - IMPRESSION: 1. Three-ve ssel coronary artery disease. 2. Patent stents in the circumflex and posterior descending artery. 3. Patent left internal mammary artery to left anterior descending, which appears to be only mild to moderately diseased. 11/03/21 BH- Chest Pain 10/29/21
--- NOTE | 2024-11-13 19:19 | XRR_ITS ---
PROCEDURE INFORMATION: Exam: XR Lumbosacral Spine Exam date and time: 11/13/2024 7:24 PM Age: 68 years old Clinical indication: Low back pain; Additional info: L4 back pain, heard pop after bending TECHNIQUE: Imaging protocol: Radiologic exam of the lumbosacral spine. Views: 2 or 3 views. COMPARISON: No relevant prior studies available. FINDINGS: Bones/joints: No fracture. Vertebral body heights are maintained. Spinal alignment is intact. Mild degenerative changes most pronounced at L4-L5 and L5-S1. Slight grade 1 retrolisthesis at L3-L4 measuring about 2 mm. Soft tissues: Unremarkable. Vasculature: Atherosclerotic aortic calcifications. XR/XR lumbar spine 2-3V* [id number] IMPRESSION: No acute osseous findings.
--- NOTE | 2024-11-13 19:19 | W.ED.BACK ---
HPI - Back Pain/Injury General: Chief Complaint: Back Pain/Injury Stated Complaint: back pain Time Seen by Provider: 11/13/24 19:02 History of Present Illness: Patient is a 68-year-old gentleman with history of CAD, HTN, presents to ED with sudden onset of acute low back pain. This happened between 14?14 30 today. Patient was cleaning today, bent over, and felt a pop in his low back. Denies any fall, weakness in bilateral legs, however he does have radiation of pain in bilateral lower legs. No sensory changes. Associated symptoms: Deny abdominal pain, chills, fever(s), nausea, urinary urgency or vomiting Related Data Home Medications ?Medication ?Instructions ?Recorded ?Confirmed alirocumab 75 mg/mL subcutaneous 75 mg SUBCUT .MONTHLY 06/28/23 07/17/24 pen injector (Praluent Pen) aspirin 81 mg tablet,delayed 81 mg PO DAILY 06/28/23 07/17/24 release (Adult Low Dose Aspirin) atorvastatin 80 mg tablet 80 mg PO DAILY 06/28/23 07/17/24 cholecalciferol (vitamin D3) 50 50 mcg PO DAILY 06/28/23 07/17/24 mcg (2,000 unit) capsule loratadine 10 mg tablet (Allergy 10 mg PO DAILY 06/28/23 07/17/24 Relief (loratadine)) metoprolol tartrate 100 mg tablet 100 mg PO BID 06/28/23 07/17/24 montelukast 10 mg tablet 10 mg PO DAILY 06/28/23 07/17/24 multivitamin 1 tab PO DAILY 06/28/23 07/17/24 nitroglycerin 0.6 mg sublingual 0.6 mg sublingual Q5M PRN Pain 06/28/23 07/17/24 tablet olopatadine 0.2 % eye drops 1 drp ophthalmic (eye) DAILY 06/28/23 07/17/24 omega 0-chi-thh-fish oil 300 1 cap PO BID 06/28/23 07/17/24 mg-1,000 mg capsule (Fish Oil) omeprazole 20 mg capsule,delayed 20 mg PO DAILY 06/28/23 07/17/24 release ranolazine 1,000 mg 1,000 mg PO BID 06/28/23 07/17/24 tablet,extended release,12 hr tamsulosin 0.4 mg capsule 0.4 mg PO DAILY 06/28/23 07/17/24 tramadol 50 mg tablet 50 mg PO BID PRN Pain 06/28/23 07/17/24 Previous Rx's ?Medication ?Instructions ?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 #1 ea 03/27/24 omeprazole 40 mg capsule,delayed 40 mg PO BID 30 days #60 caps 03/27/24 release sucralfate 100 mg/mL oral 10 ml PO BID 30 days #840 mL 03/27/24 suspension clopidogrel 75 mg tablet 75 mg PO DAILY 30 days #30 tabs 10/05/24 methocarbamol 500 mg tablet 500 mg PO Q8H PRN muscle spasm #20 11/13/24 tabs methylprednisolone 4 mg tablets in See Rx Instructions PO .COMPLEX 11/13/24 a dose pack (Medrol (Wade)) #21 ea Allergies Allergy/AdvReac Type Severity Reaction Status Date / Time No Known Allergies Allergy Verified 07/17/24 12:56 Review of Systems General: Reports: 10 or more systems reviewed and unremarkable except in HPI and below Const: Denies: fever(s) or chills Eyes: Denies: change in vision or blurry vision ENMT: Denies: throat pain or mouth pain Card: Denies: chest pain or palpitations Resp: Denies: dyspnea or productive cough GI: Denies: abdominal pain, nausea or vomiting : Denies: flank pain or urinary urgency Musc: Reports: back pain, joint pain and joint stiffness; Denies: neck pain, extremity pain or extremity swelling Skin/Breast: Denies: rash or pruritus Neuro: Denies: headache(s) or numbness in extremities Psych: Denies: anxiety or depression PFSH ED PFSH: Surgical History (Updated 07/17/24 @ 13:03 by Saba Jerez LPN) Hx of CABG Family History Mother Diabetes Thyroid disease Colon cancer Grandmother Diabetes Grandfather Stroke maternal Father Heart disease CHF Colon cancer Denies family history of Chronic kidney disease (CKD) Bleeding disorder Social History Smoking and tobacco/nicotine status: former use of tobacco/nicotine Alcohol intake: current Alcohol intake frequency: holidays/special occasions only Physical Exam Const: COMMON NORMALS: no acute distress, average body habitus and patient oriented x3 HENMT: COMMON NORMALS: normocephalic and atraumatic HEAD & SCALP: normocephalic and atraumatic Neck/C-Spine: COMMON NORMALS: full ROM and no lymphadenopathy Lymph: LYMPHATIC: no lymphadenopathy noted Chest: COMMONS NORMALS: normal inspection of the chest and normal palpation of entire chest wall Resp: COMMON NORMALS: normal respiratory effort and clear to auscultation bilaterally AUSCULTATION: clear to auscultation bilaterally Cardio: COMMON NORMALS: regular rate and regular rhythm RATE: regular rate RHYTHM: regular rhythm GI: COMMON NORMALS: Normal to inspection, nondistended, normoactive bowel sounds present, Soft to palpation and non-tender PALPATION: Yes Soft to palpation : COMMON NORMALS: Yes no CVA tenderness BLADDER/KIDNEY EXAM: Yes no CVA tenderness Back/Pelvis: COMMON NORMALS: no CVA tenderness LUMBAR SPINE/LOWER BACK: Yes ROM limited, Yes lumbar spinal tenderness Lumbar spinal tenderness location: L4 and Yes straight leg raise positive left Extremity: COMMON NORMALS: normal to inspection, full ROM and capillary refill normal Neuro: COMMON NORMALS: patient oriented x3 Psych: COMMON NORMALS: mental status grossly normal and Normal thought process present THOUGHT PROCESS: Normal thought process present Skin: COMMON NORMALS: no rashes or lesions noted and no wounds GENERAL SKIN EXAM: no rashes or lesions noted Course Vital Signs: Vital signs: Vital Signs Temperature 98.0 F 11/13/24 19:02 Pulse Rate 81 11/13/24 19:02 Respiratory Rate 18 11/13/24 19:02 Blood Pressure 144/79 11/13/24 19:02 Pulse Oximetry 95 11/13/24 19:02 Oxygen Delivery Me thod Room Air 11/13/24 19:02 MDM - Back Pain/Injury Medical Decision Making Patient is 68-year-old gentleman that was bending, cleaning, and noted a pop in his back. He had pain in this lower L4 lumbar region. No compression fracture was noted on x-ray. This was read as negative. He feels better after a minimal amount of ketorolac, Norflex. Will place him on a Medrol Dosepak, and low-dose muscle relaxer for spasms. Instructed ice, brace, and no lifting. Labs Radiology Impressions Lumbar Spine X-Ray 11/13/24 19:19 IMPRESSION: No acute osseous findings. 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 See Rx Instructions .Route .MEDSUPPLY Qty: 1 0RF Rx Instructions: As directed sucralfate 100 mg/mL suspension 10 ml PO BID 30 Days Qty: 840 11RF omeprazole 40 mg capsule,delayed release(DR/EC) 40 mg PO BID 30 Days Qty: 60 11RF Praluent Pen 75 mg/mL pen injector 75 mg SUBCUT .MONTHLY tramadol 50 mg tablet 50 mg PO BID PRN (Reason: Pain) atorvastatin 80 mg tablet 80 mg PO DAILY tamsulosin 0.4 mg capsule 0.4 mg PO DAILY omega 6-hbw-qnc-fish oil [Fish Oil] 300-1,000 mg capsule 1 cap PO BID omeprazole 20 mg capsule,delayed release(DR/EC) 20 mg PO DAILY cholecalciferol (vitamin D3) 50 mcg (2,000 unit) capsule 50 mcg PO DAILY montelukast 10 mg tablet 10 mg PO DAILY multivitamin Tablet 1 tab PO DAILY loratadine [Allergy Relief (loratadine)] 10 mg tablet 10 mg PO DAILY aspirin [Adult Low Dose Aspirin] 81 mg tablet,delayed release (DR/EC) 81 mg PO DAILY ranolazine 1,000 mg tablet extended release 12 hr 1,000 mg PO BID metoprolol tartrate 100 mg tablet 100 mg PO BID olopatadine 0.2 % drops 1 drp ophthalmic (eye) DAILY nitroglycerin 0.6 mg tablet, sublingual 0.6 mg sublingual Q5M PRN (Reason: Pain) Rx Instructions: do not exceed 3 doses per episode clopidogrel 75 mg tablet 75 mg PO DAILY 30 Days Qty: 30 0RF Discharge Orders: Discharge ED (Routine); Ordered 11/13/24 Ordered By: Laura Anderson Referrals: Tejal Moe MD [Primary Care Provider, Family Practice] Discharge Diet: Usual diet Discharge Activity: Limit activity as instructed Patient Instructions: Patient Portal & Mamta Instructions, Low Back Strain (ED) Activity Restrictions/Additional Instructions: Do not lift over half gallon of milk You may ice this area. You can purchase Lidoderm patches at the [facility] to place in this area. You may brace this area with a back brace for comfort. You will need to follow-up with your primary care physician regarding this visit and any additional testing. Return to ED for worsening pain, fever, redness, weakness to lower extremities, numbness in groin. Caution on muscle relaxers given your age, and concern for sedation. Take medication as prescribed. Medrol Dosepak and muscle relaxer sent to pharmacy. Print Language: Armenian Coding Level of Care Code ED Clinical Research Analyst for Sanjay Edwards
[2024-11-13] MEDS: orphenadrine 30 mg/mL Inj 2 mL 60 MG IM (19:45)
[2024-11-13 21:29] VITALS: BP 145/76; PULSE 69; RESP 16; O2SAT 92
== END 2024-11-13 21:30 | disposition home or self-care (01) ==
PROVIDERS: Emergency Provider Physician Assistant; PCP Family Medicine
DX: S39.012A Strain of muscle, fascia and tendon of lower back, initial encounter (principal); Z79.82 Long term (current) use of aspirin; Z79.02 Long term (current) use of antithrombotics/antiplatelets; Z87.891 Personal history of nicotine dependence; Z95.1 Presence of aortocoronary bypass graft; I25.10 Atherosclerotic heart disease of native coronary artery without angina pectoris; I10 Essential (primary) hypertension; X58.XXXA Exposure to other specified factors, initial encounter
CPT/HCPCS: 72100; 96372; 99284; J1100; J1885; J2360

== ENCOUNTER → 2024-11-28 14:52 | Outpatient (BNVA) | payer OTHER, SELFPAY | PROVIDERS: PCP Family Medicine; Visit Provider Physician Assistant | DX: G56.03 Carpal tunnel syndrome, bilateral upper limbs (principal); G56.21 Lesion of ulnar nerve, right upper limb | CPT/HCPCS: 73130; 99214 ==

== ENCOUNTER → 2025-01-15 08:38 | Outpatient (BNVA) | payer OTHER, SELFPAY | PROVIDERS: PCP Family Medicine; Visit Provider Family Medicine | DX: Z01.818 Encounter for other preprocedural examination (principal) | CPT/HCPCS: 80053; 81000; 85007; 85027; 93005 ==

== ENCOUNTER → 2025-01-15 11:29 | Outpatient (BNVA) | payer OTHER, SELFPAY | PROVIDERS: PCP Family Medicine; Visit Provider Nurse Practitioner Family | DX: L73.8 Other specified follicular disorders (principal); L81.4 Other melanin hyperpigmentation; L57.8 Other skin changes due to chronic exposure to nonionizing radiation; L82.1 Other seborrheic keratosis; X32.XXXA Exposure to sunlight, initial encounter; D18.01 Hemangioma of skin and subcutaneous tissue; D48.5 Neoplasm of uncertain behavior of skin | CPT/HCPCS: 11102; 99203 ==

== ENCOUNTER 2025-01-24 06:34 | Day surgery (SDC) | payer OTHER, SELFPAY ==
[2025-01-24] VITALS (10 sets, daily range): BP systolic 96–128; BP diastolic 53–76; PULSE 63–80; RESP 16–20; TEMP 36.2–36.6; O2SAT 89–99; BMI 29.6
[2025-01-24] MEDS: acetaminophen 1,000 MG/100 ML PIGGYBACK 400 MG IV (07:23)
--- NOTE | 2025-01-24 08:01 | ANES.PROC ---
Anesthesia Procedures Procedure/Date: 01/24/25 Right Supraclavicular Nerve Block ^: Nerve Block 1: Main Anesthesia: general anesthesia Time Out Performed: Yes Consent: requested by attending/covering physician, from patient, risks and benefits reviewed and patient agrees to proceed Laterality: Right Nerve block location: supraclavicular Anesthesia monitors applied: pulse oximetry, EKG, BP cuff and oxygen Nerve block position: semi sitting Anesthetic Used: ropivicaine 0.5% and with decadron (4 mg) Amount of anesthesia used (mL): 20 Ultrasound used to: recognize landmarks, visualize and ID brachial plexus and in supraclavicular region Nerve Stimulator Used?: Yes Interscalene/Femoral BLK: 4 stimuplex 21 g needle used for position and inplane approach and no vascular puncture identified Injection: neg aspiration of heme Patient Tolerated Procedure: well and no complications Complications: none
--- NOTE | 2025-01-24 08:07 | ANES.PREANE2 ---
Pre-Anesthetic Assessment Height/Weight: Height 1.73 m Weight 88.451 kg Temp Pulse Resp BP Pulse Ox O2 Del Method 97.6 F 63 17 118/70 94 Room Air 01/24/25 07:07 01/24/25 07:07 01/24/25 07:07 01/24/25 07:07 01/24/25 07:07 01/24/25 07:07 Operation Date: 01/24/25 08:45 Proposed Procedures p Carpal Tunnel Release(Right) - Jamel [place], DO s Cubital Tunnel Release(Right) - Jamel [place], DO s Ulnar Nerve Transposition(Right) - Jamel [place], DO Last intake: Intake Last Liquid Date 01/23/25 Last Liquid Time 23:00 Last Solid Date 01/23/25 Last Solid Time 20:00 Social No alcohol and No tobacco Exam alert, oriented x 3, clear to auscultation bilaterally and regular rate & rhythm Airway Submandibular: within normal limits Cervical ROM: within normal limits Mallampati: Class I Pulmonary Chronic Obstructive Pulmonary Disease and Othopnea CV/HEM Coronary Artery Disease, Congestive Heart Failure and Hypertension [facility] Osteoarthritis/DJD Anesthetic Plan ASA status: 3 Anesthesia: General and Regional (specify below) (Supraclavicular ) Medications/Allergies Home Medications ?Medication ?Instructions ?Recorded ?Confirmed ?Last Taken ?Type alirocumab 75 mg/mL subcutaneous 75 mg SUBCUT .MONTHLY 06/28/23 01/24/25 01/10/25 History pen injector (Praluent Pen) aspirin 81 mg tablet,delayed 81 mg PO DAILY 06/28/23 01/22/25 01/15/25 History release (Adult Low Dose Aspirin) atorvastatin 80 mg tablet 80 mg PO DAILY 06/28/23 01/22/25 01/23/25 History cholecalciferol (vitamin D3) 50 50 mcg PO DAILY 06/28/23 01/22/25 01/08/25 History mcg (2,000 unit) capsule loratadine 10 mg tablet (Allergy 10 mg PO DAILY 06/28/23 01/22/25 01/21/25 History Relief (loratadine)) metoprolol tartrate 100 mg tablet 100 mg PO BID 06/28/23 01/22/25 01/23/25 History montelukast 10 mg tablet 10 mg PO DAILY 02/01/24/25 01/23/25 History multivitamin 1 tab PO DAILY 06/28/23 01/22/25 01/15/25 History nitroglycerin 0.6 mg sublingual 0.6 mg sublingual Q5M PRN Pain 06/28/23 01/22/25 2 Years Ago History tablet ~03/13/22 olopatadine 0.2 % eye drops 1 drp ophthalmic (eye) DAILY 06/28/23 01/22/25 12/23/24 History omega 5-frz-qrn-fish oil 300 1 cap PO BID 06/28/23 01/22/25 12/23/24 History mg-1,000 mg capsule (Fish Oil) ranolazine 1,000 mg 1,000 mg PO BID 06/28/23 01/24/25 01/23/25 History tablet,extended release,12 hr tamsulosin 0.4 mg capsule 0.4 mg PO DAILY 06/28/23 01/24/25 01/23/25 History tramadol 50 mg tablet 50 mg PO BID PRN Pain 06/28/23 01/22/25 01/17/25 History 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 #1 ea 03/27/24 11/28/24 Unknown Rx omeprazole 40 mg capsule,delayed 40 mg PO BID 30 days #60 caps 03/27/24 01/24/25 01/23/25 Rx release clopidogrel 75 mg tablet 75 mg PO DAILY 30 days #30 tabs 10/05/24 01/22/25 01/17/25 Rx Allergies Allergy/AdvReac Type Severity Reaction Status Date / Time No Known Allergies Allergy Verified 01/15/25 08:56 Current Medications Generic Name Dose Route Start Last Admin Trade Name Freq PRN Reason Stop Dose Admin Sodium Chloride 1,000 mls @ 30 mls/hr 01/24/25 06:00 01/24/25 07:19 Sodium Chloride 0.9% IV 01/25/25 05:59 30 mls/hr .Q24H YOGESH Administration PFSH Anesthesia Surgical History Hx of CABG Family History Mother Diabetes Thyroid disease Colon cancer Grandmother Diabetes Grandfather Stroke maternal Father Heart disease CHF Colon cancer Denies family history of Chronic kidney disease (CKD) Bleeding disorder Social History Smoking and tobacco/nicotine status: never used tobacco/nicotine Alcohol intake: current Alcohol intake frequency: holidays/special occasions only
--- NOTE | 2025-01-24 08:21 | W.PM.OPSFHP ---
Same Day Surgery H&P Indication for Procedure/HPI DATE OF PROCEDURE: January 24, 2025 CHIEF COMPLAINT/INDICATIONFOR SURGICAL PROCEDURE: Right carpal tunnel syndrome, right cubital tunnel syndrome PREOP DIAGNOSIS: Right carpal tunnel syndrome, right cubital tunnel syndrome PLANNED PROCEDURE: Operation Date: 01/24/25 08:45 Proposed Procedures p Carpal Tunnel Release(Right) - Jamel [place], DO s Cubital Tunnel Release(Right) - Jamel [place], DO s Ulnar Nerve Transposition(Right) - Jamel Get, DO Medications/Allergies* Home Medications ?Medication ?Instructions ?Recorded ?Confirmed ?Type alirocumab 75 mg/mL subcutaneous 75 mg SUBCUT .MONTHLY 06/28/23 01/24/25 History pen injector (Praluent Pen) aspirin 81 mg tablet,delayed 81 mg PO DAILY 06/28/23 01/22/25 History release (Adult Low Dose Aspirin) atorvastatin 80 mg tablet 80 mg PO DAILY 06/28/23 01/22/25 History cholecalciferol (vitamin D3) 50 50 mcg PO DAILY 06/28/23 01/22/25 History mcg (2,000 unit) capsule loratadine 10 mg tablet (Allergy 10 mg PO DAILY 06/28/23 01/22/25 History Relief (loratadine)) metoprolol tartrate 100 mg tablet 100 mg PO BID 06/28/23 01/22/25 History montelukast 10 mg tablet 10 mg PO DAILY 06/28/23 01/24/25 History multivitamin 1 tab PO DAILY 06/28/23 01/22/25 History nitroglycerin 0.6 mg sublingual 0.6 mg sublingual Q5M PRN Pain 06/28/23 01/22/25 History tablet olopatadine 0.2 % eye drops 1 drp ophthalmic (eye) DAILY 06/28/23 01/22/25 History omega 6-gxb-bxu-fish oil 300 1 cap PO BID 06/28/23 01/22/25 History mg-1,000 mg capsule (Fish Oil) ranolazine 1,000 mg 1,000 mg PO BID 06/28/23 01/24/25 History tablet,extended release,12 hr tamsulosin 0.4 mg capsule 0.4 mg PO DAILY 06/28/23 01/24/25 History tramadol 50 mg tablet 50 mg PO BID PRN Pain 06/28/23 01/22/25 History Allergies/Adverse Reactions Allergy/AdvReac Type Severity Reaction Status Date / Time No Known Allergies Allergy Verified 01/15/25 08:56 Current Medications: Generic Name Dose Route Start Last Admin Trade Name [place] PRN Reason Stop Dose Admin Sodium Chloride 1,000 mls @ 30 mls/hr 01/24/25 06:00 01/24/25 07:19 Sodium Chloride 0.9% IV 01/25/25 05:59 30 mls/hr .Q24H YOGESH Administration Pertinent History/Comorbid Conditions* Surgical History (Updated 06/28/23 @ 17:24 by Tejal Moe MD) Hx of CABG Family History (Updated 03/06/24 @ 08:48 by SUBHASH Garcia) Colon cancer Mother Father Diabetes Mother Grandmother Heart disease Father CHF Thyroid disease Mother Stroke Grandfather maternal Denies family history of Chronic kidney disease (CKD) Bleeding disorder Social History Smoking and tobacco/nicotine status: never used tobacco/nicotine Alcohol intake: current Alcohol intake frequency: holidays/special occasions only Pertinent Exam Findings alert, oriented x 3, operative site marked and procedure specific exam findings Please refer to detailed orthopedic examination on 11/28/2024 listed below: Right Hand exam-positive Tinel's and positive Phalen's test. mild thenar atrophy and no thenar muscle weakness. Full range of motion in fingers and wrist and fingers are warm and well-perfused with normal cap refill under 2 seconds. Radial pulse 2+, no intrinsic muscle weakness noted. Right Elbow exam-Positive Tinel's test Left Hand exam-positive Tinel's and positive Phalen's test. mild thenar atrophy and no thenar muscle weakness. Full range of motion in fingers and wrist and fingers are warm and well-perfused with normal cap refill under 2 seconds. Radial pulse 2+, no intrinsic muscle weakness noted. Left Elbow exam-negative Tinel's test Recommendations Risks and benefits of procedure reviewed and Patient/family agree to proceed Surgery/Procedure today Other Plans: Plan to proceed to the OR today for right carpal tunnel release, and right cubital tunnel release with possible nerve transposition. Patient is cleared to preoperative clearance process with Dr. Cui as well as we obtain cardiac clearance from his med surg rn. Patient understands the ins and outs procedure the risk benefits complication alternatives surgical nonsurgical treatment options. Understanding risk of surgery patient like proceed with surgical invention. All questions answered at this time. Coding Level of Care Code Acute Code for Chg Lucyd
[2025-01-24] MEDS: ceFAZolin 2,000 MG in sodium chloride 0.9% (plus) 50 ML 100 MG IV (08:26)
[2025-01-24] MEDS: lidocaine-epi 1% 20 mL INJ 10 ML INJECTION (08:56)
[2025-01-24] MEDS: ROPivacaine 0.5% SDV 30 mL 50 MG INJECTION (08:57)
--- NOTE | 2025-01-24 09:18 | P.BOP_ITS ---
Date of Procedure: 01/24/2025 Surgeon: Jamel Deutsch DO [employer] Spray Unit Adjuster(s): None Procedure(s) performed: Right carpal tunnel release Right cubital tunnel release (ulnar nerve decompression at the elbow) Findings of the procedure(s): Patient underwent procedure as planned without issues or complications no subluxation of the ulnar nerve as a result no transposition was performed. Patient Toller procedure well without issues or complications taken recovery in stable condition. Estimated blood loss: 10 mL Specimen(s) removed: None Post-operative diagnosis: Right carpal tunnel syndrome, right cubital tunnel syndrome
--- NOTE | 2025-01-24 09:19 | P.OP_ITS ---
Operative Report Date of procedure: January 24, 2025 Surgeon: Jamel Deutsch DO Procedure: Preoperative diagnosis: Right carpal tunnel syndrome Right cubital tunnel syndrome Postop Diagnosis: Same Procedure done: Right carpal tunnel release Right?cubital tunnel tunnel release (ulnar nerve decompression at elbow) Surgeon: Jamel Deutsch DO Estimated blood loss: 10mL Tourniquet? 17 minutes IV fluids: 500 mL Complications: None Findings: See operative report narrative Condition: stable Disposition: same day Brief History: Patient's been seen and worked up in the outpatient setting and findings consistent with preoperative diagnosis.? Patient has right carpal tunnel syndrome as well as right?cubital tunnel syndrome which has been worked up in the outpatient setting has physical exam findings consistent with this as well as confirmatory nerve conduction/EMG nerve conduction study consistent with diagnosis.? Patient's failed conservative treatment.? As result through shared decision making agreed to proceed with? right carpal tunnel and right?cubital tunnel release with possible ulnar nerve transposition we talked about treatment options as far as nonoperative and operative intervention.? Understands risk benefits complication alternatives surgical nonsurgical treatment options.? Understanding his risks he agrees to proceed with surgical intervention. Understanding these risks he agrees to proceed with surgery.? Consent obtained in preoperative holding area. Procedure: Patient seen evaluate in the preoperative holding area.? Consent was reviewed and signed with patient.? Correct extremity marked.? Patient seen evaluated by anesthesia department once cleared for surgery was then taken back to the operative suite placed in supine position all bony prominences well-padded patient properly secured to bed.? right upper extremity placed onto armboard.? Nonsterile tourniquet applied right upper arm.? Patient then underwent anesthesia per the anesthesia department.? Patient's right upper extremity was then prepped and draped in standard orthopedic fashion.? Final timeout performed.? Patient received appropriate preoperative antibiotics. Esmarch was used exsanguinate the right upper extremity.? Tourniquet was insufflated to 250 mmHg. I started with the carpal tunnel release first.? I made a standard open carpal tunnel release starting with the distal most extent in the palm at the Peralta's cardinal line and the incision line was made in line with the fourth ray and ended just distal to the wrist crease.? Sharp scalpel incision was made through skin and subcutaneous tissue I then utilizing self retainer then began to dissect with dissection scissors split longitudinally the palmar fascia.? Next I then utilizing my assistant professor of biochemistry Kasdan retractors subsequently utilizing scalpel feathered through the palmaris brevis as well as through the transverse carpal ligament distally.? Once I encountered the floor of the transverse carpal ligament and entered into the carpal tunnel I then switched to dissection scissors.? Carefully released the distal extent of the transverse carpal ligament to the palmar fat.? Care was to protect the recurrent branch and not injured this during this part of the case.? Next I then placed a Gilson underneath the transverse carpal ligament proximally to protect the nerve in the carpal tunnel contents.? And then I subsequently under loupe magnification utilize my dissection scissors to release the transverse carpal ligament into the antebrachial fascia under direct visualization with care to keep my scissors with a curved ulnarly away from the palmar cutaneous branch.? The transverse carpal was then completely decompressed proximally and a Gilson was then placed both distally and proximally throughout the carpal tunnel and had complete decompression of the nerve.? The nerve did appear to have hourglass shape as it went through the carpal tunnel.? With significant irritation noted around the nerve.? No masses were noted within the contents of the carpal tunnel.? This completed the carpal tunnel release and then I subsequently irrigated the wound bed and placed a wet Ray-Naga into the incision for later closure. Next marked out the landmarks of the right elbow of the medial epicondyle and olecranon and made a curvilinear incision following the course of the ulnar nerve at the medial aspect of the elbow.? Sharp scalpel incision was made through skin and subcutaneous tissue.? Next I switched to Littler dissection scissors and spread in plane of the medial antebrachial cutaneous nerve branching which was protected throughout this part of the dissection.? Then I directly came down over the fascia and identified the 2 heads of the FCU fascia and split this right in the middle and subsequently identified my ulnar nerve distally.? This was then completely released distally under direct visualization and loupe magnification.? Once the nerve was then identified I then subsequently tracked this proximally and released this through Lester's ligament as well as complete decompression of the nerve proximally all the way past the intermuscular septum.? The nerve was completely released and decompressed both proximally and distally.? Ulnar nerve neurolysis performed and completed both proximally and distally with dissection scissors.? I then took the elbow through range of motion and there was no instability or subluxating of the ulnar nerve.? This completed?cubital tunnel release.? ?Next the wound bed was thoroughly irrigated.? Tourniquet was deflated.? Hemostasis was satisfactory at the?cubital tunnel release surgery site. I then inspected the carpal tunnel incision and this was found to have satisfactory hemostasis and all this was maintained through bipolar electrocautery.? At this point time I sequentially closed?cubital tunnel site with 3-0 Vicryl suture in a running horizontal mattress nylon stitch.? ? The carpal tunnel release surgery was then closed in standard interrupted mattress fashion.? Dressing was Xeroform 4 x 4's ABD Curlex soft roll and an Jorge wrap has a bulky soft dressing and sling. Patient was then awakened from anesthesia and taken to PACU in stable condition. Disposition: Patient taken to PACU in stable condition recovering well.? Patient will receive appropriate discharge instructions as well as pain medication postoperatively.? We will follow-up with Ortho in the office in 2 weeks.? Patient understands agrees with current plan.? All questions answered.? He understands if any questions or concerns and contact the office for follow-up appointment..
--- NOTE | 2025-01-24 09:53 | ANE.PACU2 ---
Inpatient post-anesthesia follow up: Airway intact: Yes Vital signs: Temperature 98 F Pulse Rate 70 Respiratory Rate 16 Blood Pressure 121/76 Pulse Oximetry 90 Oxygen Delivery Me thod Nasal Cannula Oxygen Flow Rate 1 Fraction of Inspir ed Oxygen Hydration adequate: Yes Nausea and vomiting: No Pain level: controlled Mental status: Baseline
== END 2025-01-24 11:25 | disposition home or self-care (01) ==
PROVIDERS: PCP Family Medicine; Visit Provider Student in an Organized Health Care Education/Training Program
PROC: (CPT 64721; principal; 2025-01-24 08:45)
PROC: (CPT 64718; 2025-01-24 08:45)
DX: G56.01 Carpal tunnel syndrome, right upper limb (principal); G56.21 Lesion of ulnar nerve, right upper limb; Z79.82 Long term (current) use of aspirin; Z95.1 Presence of aortocoronary bypass graft; J44.9 Chronic obstructive pulmonary disease, unspecified; I25.10 Atherosclerotic heart disease of native coronary artery without angina pectoris; I11.0 Hypertensive heart disease with heart failure; I50.9 Heart failure, unspecified; K21.9 Gastro-esophageal reflux disease without esophagitis
CPT/HCPCS: 64718; 64721; J0131; J0690; J1100; J1885; J2405; J2704; J2795; J3010; J7030; J9999

== ENCOUNTER → 2025-02-06 08:07 | Outpatient (BNVA) | payer OTHER, SELFPAY | PROVIDERS: PCP Family Medicine; Visit Provider Physician Assistant | DX: Z98.890 Other specified postprocedural states (principal) | CPT/HCPCS: 99024 ==

== ENCOUNTER → 2025-03-20 08:51 | Outpatient (BNVA) | payer OTHER, SELFPAY | PROVIDERS: PCP Family Medicine; Visit Provider Physician Assistant | DX: G56.02 Carpal tunnel syndrome, left upper limb (principal); Z98.890 Other specified postprocedural states | CPT/HCPCS: 99214 ==

== ENCOUNTER 2025-05-06 05:37 | Day surgery (SDC) | payer OTHER, SELFPAY ==
[2025-05-06] VITALS (7 sets, daily range): BP systolic 108–172; BP diastolic 57–108; PULSE 69–76; RESP 15–17; TEMP 36.1–36.7; O2SAT 93–99; BMI 29.6
[2025-05-06] MEDS: acetaminophen 1,000 MG/100 ML PIGGYBACK 400 MG IV (06:23)
--- NOTE | 2025-05-06 07:07 | W.PM.OPSFHP ---
Same Day Surgery H&P Indication for Procedure/HPI DATE OF PROCEDURE: May 06, 2025 CHIEF COMPLAINT/INDICATIONFOR SURGICAL PROCEDURE: Left carpal tunnel syndrome PREOP DIAGNOSIS: Left carpal tunnel syndrome PLANNED PROCEDURE: Operation Date: 05/06/25 08:00 Proposed Procedures p Carpal Tunnel Release(Left) - Jamel [place], DO Medications/Allergies* Home Medications ?Medication ?Instructions ?Recorded ?Confirmed ?Type alirocumab 75 mg/mL subcutaneous 75 mg SUBCUT .MONTHLY 06/28/23 05/02/25 History pen injector (Praluent Pen) aspirin 81 mg tablet,delayed 81 mg PO DAILY 06/28/23 05/02/25 History release (Adult Low Dose Aspirin) atorvastatin 80 mg tablet 80 mg PO DAILY 06/28/23 05/02/25 History cholecalciferol (vitamin D3) 50 50 mcg PO DAILY 06/28/23 05/02/25 History mcg (2,000 unit) capsule loratadine 10 mg tablet (Allergy 10 mg PO DAILY 06/28/23 05/02/25 History Relief (loratadine)) metoprolol tartrate 100 mg tablet 100 mg PO BID 06/28/23 05/02/25 History montelukast 10 mg tablet 10 mg PO DAILY 06/28/23 05/02/25 History multivitamin 1 tab PO DAILY 06/28/23 05/02/25 History nitroglycerin 0.6 mg sublingual 0.6 mg sublingual Q5M PRN Pain 06/28/23 05/02/25 History tablet olopatadine 0.2 % eye drops 1 drp ophthalmic (eye) DAILY 06/28/23 05/02/25 History omega 5-vuu-cwl-fish oil 300 1 cap PO BID 06/28/23 05/02/25 History mg-1,000 mg capsule (Fish Oil) ranolazine 1,000 mg 1,000 mg PO BID 06/28/23 05/02/25 History tablet,extended release,12 hr tamsulosin 0.4 mg capsule 0.4 mg PO DAILY 06/28/23 05/02/25 History tramadol 50 mg tablet 50 mg PO BID PRN Pain 06/28/23 05/02/25 History Allergies/Adverse Reactions Allergy/AdvReac Type Severity Reaction Status Date / Time No Known Allergies Allergy Verified 05/06/25 06:08 Current Medications: Generic Name Dose Route Start Last Admin Trade Name [place] PRN Reason Stop Dose Admin Sodium Chloride 1,000 mls @ 30 mls/hr 05/06/25 06:00 05/06/25 06:23 Sodium Chloride 0.9% IV 05/07/25 05:59 30 mls/hr .Q24H YOGESH Administration Pertinent History/Comorbid Conditions* Surgical History (Updated 02/06/25 @ 08:23 by GEREMIAS Elliott) Hx of CABG Family History (Updated 03/06/24 @ 08:48 by SUBHASH Garcia) Colon cancer Mother Father Diabetes Mother Grandmother Heart disease Father CHF Thyroid disease Mother Stroke Grandfather maternal Denies family history of Chronic kidney disease (CKD) Bleeding disorder Social History Smoking and tobacco/nicotine status: never used tobacco/nicotine Alcohol intake: current Alcohol intake frequency: holidays/special occasions only Pertinent Exam Findings alert, oriented x 3, operative site marked and procedure specific exam findings Please refer to anesthesia's preoperative valuation for heart and lung findings Please refer to detailed orthopedic examination on 03/20/2025 listed below: Left Hand exam-positive Tinel's and positive Phalen's test. no thenar atrophy and no thenar muscle weakness. Full range of motion in fingers and wrist and fingers are warm and well-perfused with normal cap refill under 2 seconds. Radial pulse 2+, no intrinsic muscle weakness noted. Left Elbow exam-negative Tinel's test Recommendations Risks and benefits of procedure reviewed and Patient/family agree to proceed Surgery/Procedure today Other Plans: Plan to proceed to the OR today for left carpal tunnel release. Patient understands the ins and outs of procedure the risk benefits complication alternative surgical nonsurgical treatment options. Understanding risk of surgery patient elected proceed with surgical invention. All questions answered at this time. Nerve study once again reviewed normal left ulnar nerve and he has no symptoms on examination to the left ulnar nerve as a result of shared decision making or proceeding with a left carpal tunnel release today. All questions answered. Coding Level of Care Code Acute Code for Iglesiag Fwd
--- NOTE | 2025-05-06 07:41 | ANES.PREANE2 ---
Pre-Anesthetic Assessment Height/Weight: Height 5 ft 8 in Weight 195 lb Temp Pulse Resp BP Pulse Ox O2 Del Method 98.1 F 70 17 145/75 96 Room Air 05/06/25 06:13 05/06/25 06:13 05/06/25 06:13 05/06/25 06:13 05/06/25 06:13 05/06/25 06:13 Preop Diagnosis: Left carpal tunnel syndrome Operation Date: 05/06/25 08:00 Proposed Procedures p Carpal Tunnel Release(Left) - Jamel Deutsch, DO Was Beta Solomon taken within 24 hours: Yes Was Clonidine taken within 24 hours: N/A Last intake: Intake Last Liquid Date 05/05/25 Last Liquid Time 22:00 Last Solid Date 05/05/25 Last Solid Time 20:30 Social No alcohol and No tobacco Exam alert, oriented x 3, clear to auscultation bilaterally and regular rate & rhythm Airway Submandibular: within normal limits Cervical ROM: within normal limits Mallampati: Class I Comments: Comments: Missing multiple teeth, denies any loose Anesthetic Plan ASA status: 3 Anesthesia: General Other: No prior issues with anesthesia, patient had similar procedure done in January NPO since yesterday evening History of COPD CAD history, on chronic Plavix. Last taken 05/01/2025 GERD on omeprazole Hypertension on metoprolol EKG sinus rhythm Plan for MAC anesthesia with local via surgeon Medications/Allergies Home Medications ?Medication ?Instructions ?Recorded ?Confirmed ?Last Taken ?Type alirocumab 75 mg/mL subcutaneous 75 mg SUBCUT .MONTHLY 06/28/23 05/02/25 04/15/25 History pen injector (Praluent Pen) aspirin 81 mg tablet,delayed 81 mg PO DAILY 06/28/23 05/02/25 05/01/25 History release (Adult Low Dose Aspirin) atorvastatin 80 mg tablet 80 mg PO DAILY 06/28/23 05/02/25 05/01/25 History cholecalciferol (vitamin D3) 50 50 mcg PO DAILY 06/28/23 05/02/25 05/01/25 History mcg (2,000 unit) capsule loratadine 10 mg tablet (Allergy 10 mg PO DAILY 06/28/23 05/02/25 05/01/25 History Relief (loratadine)) metoprolol tartrate 100 mg tablet 100 mg PO BID 0205/02/25 05/01/25 History montelukast 10 mg tablet 10 mg PO DAILY 06/28/23 05/02/25 05/01/25 History multivitamin 1 tab PO DAILY 06/28/23 05/02/25 05/02/25 History nitroglycerin 0.6 mg sublingual 0.6 mg sublingual Q5M PRN Pain 06/28/23 05/02/25 2 Years Ago History tablet ~03/13/22 olopatadine 0.2 % eye drops 1 drp ophthalmic (eye) DAILY 06/28/23 05/02/25 05/01/25 History omega 5-blg-jah-fish oil 300 1 cap PO BID 06/28/23 05/02/25 05/01/25 History mg-1,000 mg capsule (Fish Oil) ranolazine 1,000 mg 1,000 mg PO BID 06/28/23 05/02/25 05/01/25 History tablet,extended release,12 hr tamsulosin 0.4 mg capsule 0.4 mg PO DAILY 06/28/23 05/02/25 05/01/25 History tramadol 50 mg tablet 50 mg PO BID PRN Pain 06/28/23 05/02/25 01/17/25 History left and right knee tip out worker brace #1 ea 03/27/24 03/20/25 Unknown Rx omeprazole 40 mg capsule,delayed 40 mg PO BID 30 days #60 caps 03/27/24 05/02/25 05/01/25 Rx release clopidogrel 75 mg tablet 75 mg PO DAILY 30 days #30 tabs 10/05/24 05/02/25 05/01/25 Rx Allergies Allergy/AdvReac Type Severity Reaction Status Date / Time No Known Allergies Allergy Verified 05/06/25 06:08 Current Medications Generic Name Dose Route Start Last Admin Trade Name Freq PRN Reason Stop Dose Admin Sodium Chloride 1,000 mls @ 30 mls/hr 05/06/25 06:00 05/06/25 06:23 Sodium Chloride 0.9% IV 05/07/25 05:59 30 mls/hr .Q24H YOGESH Administration PFSH Anesthesia Surgical History (Updated 05/02/25 @ 15:51 by Shelly Cuellar RN) Hx of CABG Family History Mother Diabetes Thyroid disease Colon cancer Grandmother Diabetes Grandfather Stroke maternal Father Heart disease CHF Colon cancer Denies family history of Chronic kidney disease (CKD) Bleeding disorder Social History Smoking and tobacco/nicotine status: never used tobacco/nicotine Alcohol intake: current Alcohol intake frequency: holidays/special occasions only
--- NOTE | 2025-05-06 09:48 | W.PM.BPON ---
Date of Procedure: 05/06/2025 Surgeon: Jamel Deutsch DO Graphite Disk Assembler(s): JUDE Wayne Procedure(s) performed: Left carpal tunnel release Findings of the procedure(s): Underwent procedure as planned without issues or complications taken to recovery stable condition Estimated blood loss: 2 mL Specimen(s) removed: None Post-operative diagnosis: Left carpal tunnel syndrome
--- NOTE | 2025-05-06 09:49 | PM.OP ---
Operative Report Date of procedure: May 06, 2025 Surgeon: Jamel Deutsch DO Procedure: Preop Diagnosis: Left Carpal Tunnel Syndrome Post-op diagnosis: Same Procedure done: 1. Left carpal tunnel release Surgeon: Jamel Deutsch DO Anesthesia: MAC (Local) Estimated blood loss: 2 mL Tourniquet time 6 minutes IV fluids: See anesthesia record Complications: None Findings: See operative report narrative Condition: stable Disposition: same day Brief History: Patient is a pleasant 69 year-old male with left carpal tunnel syndrome. Patient has been worked up in the outpatient setting findings and physical examination consistent with this. Patient nerve conduction studies consistent with carpal tunnel syndrome. We detailed out patient's risk benefits complication alternatives with surgical and nonsurgical treatment options. Through shared decision making, patient agrees to proceed with surgical intervention of the left carpal tunnel release . Patient understands and agrees with current plan. All questions answered. Patient elects to proceed with surgical intervention with carpal tunnel release. Procedure: Patient seen and evaluated in the preoperative holding area. Consent was reviewed and signed with patient. Correct extremity was marked. Patient was seen evaluated by the anesthesia department once cleared for surgery was brought back to the operative suite. Patient was kept on [facility] in supine position all bony prominences were well-padded patient properly secured to the bed. Left upper extremity was then placed onto an armboard. A nonsterile tourniquet was applied to the left upper arm. Patient underwent anesthesia per the anesthesia department. Patient's left upper extremity was then prepped and draped in standard orthopedic fashion. Final timeout performed. Patient received appropriate preoperative antibiotics. Under sterile aseptic technique patient received local anesthesia over the preplanned carpal tunnel incision site. Esmarch was used to exsanguinate the left upper extremity and tourniquet was insufflated to 250 mmHg. A standard mini open left carpal tunnel incision was made. Starting distally at Peralta's cardinal line in line with the fourth ray extending proximally distal to the wrist crease centered over the carpal tunnel. Sharp scalpel incision was made through skin and subcutaneous tissue. Self-retaining retractor was placed and the palmar fascia was identified. This was then split longitudinally and direct visualization of the transverse carpal ligament was then made. I then utilizing scalpel feathered through the transverse carpal ligament until I entered the floor of the transverse carpal tunnel ligament into the carpal tunnel. Next I switched to dissection scissors and completed my release of the transverse carpal ligament distally with care to protect the recurrent motor branch. I completely released into the palmar fat and until no entrapment was noted distally. Care was made to protect the superficial palmar arch during my distal dissection. Next, nasal speculum placed proximally for retraction of soft tissue on top of the Transverse carpal ligament. Next the contents of the carpal tunnel where protected and and subsequently utilizing dissection scissors under loupe magnification completely released the transverse carpal ligament proximally into the antebrachial fascia. Care was made to protect the palmar cutaneous branch by keeping my scissors curved ulnarly. Once completely released, I then placed my [place] and had appropriate decompression of the carpal tunnel proximally as well as distally. I then inspected the contents of the carpal tunnel which showed an hourglass shape of the median nerve showing its compression. No masses were noted. Tendons appeared healthy. Wound was then thoroughly irrigated. Tourniquet deflated. Hemostasis satisfactory with bipolar electrocautery. I then closed the incision with interrupted nylon stitches. Xeroform 4 x 4's and a bulky soft dressing was applied to the left upper extremity. Patient was then awakened from anesthesia and taken to PACU in stable condition. Patient tolerated procedure without complications. Disposition: Patient taken to PACU in stable condition recovering well. Dressing clean dry and intact. Patient will receive appropriate discharge instructions as well as pain medication postoperatively. Patient to follow-up with me in the office in 2 weeks. They understand they may be weightbearing as tolerated to the left hand. Patient should keep incision clean dry and intact. Patient understands if any questions or concerns may contact the office.
[2025-05-06] MEDS: ceFAZolin 2,000 MG in sodium chloride 0.9% (plus) 50 ML 100 MG IV (09:50)
[2025-05-06] MEDS: lidocaine-epi 1% PF 1:200,000 30 mL SDV INJECTION (09:51)
[2025-05-06] MEDS: ROPivacaine 0.5% SDV 30 mL 150 MG INJECTION (09:52)
--- NOTE | 2025-05-06 10:50 | ANE.PACU2 ---
Inpatient post-anesthesia follow up: Airway intact: Yes Vital signs: Temperature 97.7 F Pulse Rate 69 Respiratory Rate 17 Blood Pressure 172/93 Pulse Oximetry 95 Oxygen Delivery Me thod Room Air Oxygen Flow Rate 8 Fraction of Inspir ed Oxygen Hydration adequate: Yes Nausea and vomiting: No Pain level: 1 Mental status: Baseline
== END 2025-05-06 10:50 | disposition home or self-care (01) ==
PROVIDERS: Visit Provider Student in an Organized Health Care Education/Training Program
PROC: (CPT 64721; principal; 2025-05-06 08:00)
DX: G56.02 Carpal tunnel syndrome, left upper limb (principal); Z79.82 Long term (current) use of aspirin; Z79.891 Long term (current) use of opiate analgesic; J44.9 Chronic obstructive pulmonary disease, unspecified; I25.10 Atherosclerotic heart disease of native coronary artery without angina pectoris; I10 Essential (primary) hypertension; Z79.02 Long term (current) use of antithrombotics/antiplatelets; K21.9 Gastro-esophageal reflux disease without esophagitis; Z95.1 Presence of aortocoronary bypass graft
CPT/HCPCS: 64721; J0131; J0690; J1885; J2371; J2704; J2795; J3010; J7030; J9999